=== PATIENT | female | born 1930 | race Caucasian/White ===

== ENCOUNTER 2018-03-25 16:28 | Inpatient (IN) | payer MEDICARE, OTHER ==
--- NOTE | 2018-03-25 16:51 | ER Document Report ---
ED Medical Screen (RME) - General Chief Complaint: Altered Mental Status Stated Complaint: ALTER MENTAL STATUS Time Seen by Provider: 03/25/18 16:43 Notes: 87 years old female who is taking total of 50 mg of oxycodone a day due to chronic pain, last few days having auditory and visual hallucinations. Therefore the daughter brought her to the ED. Prior to that for the last 5 days the daughter has withdrawn all her medication except pain medicine. She was taking medication for hypothyroid and high blood pressure. Denied any focal weakness numbness tingling sensation. TRAVEL OUTSIDE OF THE [place] IN LAST 30 DAYS: No - Related Data Allergies/Adverse Reactions: Cephalosporins Allergy (Severe, Verified 11/06/14 06:11) Anaphylaxis lisinopril [From Zestril] Allergy (Severe, Verified 11/06/14 06:11) Hives bacitracin [From Neosporin] Allergy (Intermediate, Verified 11/06/14 06:11) Blisters bacitracin zinc [From Neosporin] Allergy (Intermediate, Verified 11/06/14 06:11) Blisters gramicidin D [From Neosporin] Allergy (Intermediate, Verified 11/06/14 06:11) Blisters latex [Latex] Allergy (Intermediate, Verified 11/06/14 06:11) LATEX neomycin sulfate [From Neosporin] Allergy (Intermediate, Verified 11/06/14 06:11 ) Blisters polymyxin B [From Neosporin] Allergy (Intermediate, Verified 11/06/14 06:11) Blisters polymyxin B sulfate [From Neosporin] Allergy (Intermediate, Verified 11/06/14 06 :11) Blisters sulindac [Sulindac] Allergy (Unknown, Verified 11/06/14 06:11) flector patch Allergy (Intermediate, Uncoded 11/06/14 06:11) Blisters soaps Allergy (Intermediate, Uncoded 11/06/14 06:11) tape Allergy (Intermediate, Uncoded 11/06/14 06:11) Blisters Past Medical History - Past Medical History Cardiac Medical History: Reports: Hx Atrial Fibrillation, Hx Hypercholesterolemia, Hx Hypertension Denies: Hx Coronary Artery Disease, Hx Heart Attack Pulmonary Medical History: Reports: Hx Bronchitis, Hx Pneumonia Denies: Hx Asthma, Hx COPD Neurological Medical History: Denies: Hx Cerebrovascular Accident, Hx Seizures Endocrine Medical History: Denies: Hx Hypothyroidism Malignancy Medical History: Reports: Hx Leukemia - CLL GI Medical History: Reports: Hx Gastroesophageal Reflux Disease, Hx Irritable Bowel Musculoskeltal Medical History: Reports Hx Arthritis Past Surgical History: Reports: Hx Cholecystectomy, Hx Gynecologic Surgery - Uterine cyst removal, Hx Orthopedic Surgery - Bilateral knee replacement, and right shoulder surgery.. Denies: Hx Pacemaker - Immunizations Hx Diphtheria, Pertussis, Tetanus Vaccination: Yes Physical Exam - Vital signs Vitals: Temp Pulse Resp BP Pulse Ox 98.8 F 71 13 170/96 H 96 03/25/18 16:38 03/25/18 16:38 03/25/18 16:38 03/25/18 16:38 03/25/18 16:38 Course - Vital Signs Vital signs: Temp Pulse Resp BP Pulse Ox 98.8 F 71 13 170/96 H 96 03/25/18 16:38 03/25/18 16:38 03/25/18 16:38 03/25/18 16:38 03/25/18 16:38 Doctor's Discharge - Discharge Referrals: TERESA GAVIRIA NP [Primary Care Provider] - Follow up as needed
[2018-03-25 17:26] LABS: ABSOLUTE EOSINOPHILS # (AUTO) 0.1 10^3/uL (0.0-0.6); ABSOLUTE LYMPHOCYTES (AUTO) 1.3 10^3/uL (0.5-4.7); ABSOLUTE MONOCYTES (AUTO) 0.7 10^3/uL (0.1-1.4); BASOPHILS % (AUTO) 0.5 % (0-2); HEMATOCRIT 41.3 % (36.0-47.0); HEMOGLOBIN 13.5 g/dL (12.0-15.5); LYMPHOCYTES % (AUTO) 17.9 % (13-45); MEAN CORPUSCULAR HEMOGLOBIN 29.8 pg (27.0-33.4); MEAN CORPUSCULAR HGB CONC 32.7 g/dL (32.0-36.0); MEAN CORPUSCULAR VOLUME 91 fl (80-97); MONOCYTES % (AUTO) 9.2 % (3-13); PLATELET COUNT 221 10^3/uL (150-450); RED BLOOD COUNT 4.53 10^6/uL (3.72-5.28); RED CELL DISTRIBUTION WIDTH 16.9 % (11.5-14.0); SEGMENTED NEUTROPHILS % (AUTO) 70.4 % (42-78); TOTAL CELLS COUNTED % (AUTO) 100 %; WHITE BLOOD COUNT 7.1 10^3/uL (4.0-10.5)
--- NOTE | 2018-03-25 17:41 | RADIOLOGY REPORT (SQ) ---
EXAM DESCRIPTION: CT HEAD WITHOUT COMPLETED DATE/TIME: 03/25/2018 5:27 pm REASON FOR STUDY: Hallucination COMPARISON: None. TECHNIQUE: Axial images acquired through the brain without intravenous contrast. Images reviewed wi th bone, brain and subdural windows. Additional sagittal and coronal reconstructions were generated. Images stored on PACS. All CT scanners at this facility use dose modulation, iterative reconstruction, and/or weight based d osing when appropriate to reduce radiation dose to as low as reasonably achievable (ALARA). [facility]: Dose Right [facility]: CareDose [facility]: Dose Right [facility]: Teradose 4D [facility]: FaceFirst (Airborne [employer]ometric[employer]) RADIATION DOSE: CT Rad equipment meets quality standard of care and radiation dose reduction techniq ues were employed. CTDIvol: 53.2 mGy. DLP: 991 mGy-cm. mGy. LIMITATIONS: None. FINDINGS: VENTRICLES: Prominent. CEREBRUM: No masses. No hemorrhage. No midline shift. Right parietal lacunar infarct. Additional areas of low density in the white matter most likely due to chronic micro-vascular ischemic change. No evidence for acute infarction. CEREBELLUM: No masses. No hemorrhage. No alteration of density. No evidence for acute infarction. EXTRAAXIAL SPACES: Mild age-related involutional change. No fluid collections. No masses. ORBITS AND GLOBE: No intra- or extraconal masses. Normal contour of globe without masses. CALVARIUM: No fracture. PARANASAL SINUSES: No fluid or mucosal thickening. SOFT TISSUES: No mass or hematoma. OTHER: Atherosclerotic plaque is seen within the cavernous segments of the internal carotid arteries. IMPRESSION: RIGHT PARIETAL LACUNAR INFARCT. BACKGROUND OF MILD CHRONIC CHANGES OF ATROPHY AND MICRO VASCULAR ISCHEMIA. NO ACUTE PROCESS. EVIDENCE OF ACUTE STROKE: NO. TECHNICAL DOCUMENTATION: JOB ID: [id number] Quality ID # [id number]: Final reports with documentation of one or more dose reduction techniques (e.g., Au tomated exposure control, adjustment of the mA and/or kV according to patient size, use of iterative reconstruction technique) 2010 [employer] All Rights Reserved Reading location - IP/workstation name: [email or web address]
[2018-03-25 17:43] LABS: ALANINE AMINOTRANSFERASE 38 U/L (9-52); ALBUMIN 4.3 g/dL (3.5-5.0); ALKALINE PHOSPHATASE 67 U/L (38-126); ANION GAP 12 (5-19); ASPARTATE AMINO TRANSFERASE 37 U/L (14-36); BILIRUBIN,DIRECT 0.3 mg/dL (0.0-0.4); BILIRUBIN,TOTAL 0.7 mg/dL (0.2-1.3); BLOOD UREA NITROGEN 10 mg/dL (7-20); CALCIUM 9.4 mg/dL (8.4-10.2); CARBON DIOXIDE 29 mmol/L (22-30); CHLORIDE 100 mmol/L (98-107); GLUCOSE 101 mg/dL (75-110); POTASSIUM 4.2 mmol/L (3.6-5.0); SODIUM 141.3 mmol/L (137-145); TOTAL PROTEIN 6.8 g/dL (6.3-8.2)
[2018-03-25 17:59] LABS: FREE T3 3.93 pg/mL (2.77-5.27); FREE T4 (FREE THYROXINE) 1.22 ng/dL (0.78-2.19)
[2018-03-25 18:07] LABS: AMORPHOUS SEDIMENT,URINE TRACE /HPF; APPEARANCE,URINE CLOUDY; BILIRUBIN,URINE NEGATIVE (NEGATIVE); COLOR,URINE YELLOW; GLUCOSE, URINE NEGATIVE (NEGATIVE); KETONES,URINE NEGATIVE (NEGATIVE); LEUKOCYTE ESTERASE,URINE LARGE (NEGATIVE); NITRITE,URINE NEGATIVE (NEGATIVE); PROTEIN,URINE 30 mg/dL (NEGATIVE); UROBILINOGEN,URINE NEGATIVE mg/dL (<2.0)
[2018-03-25 18:13] LABS: THYROID STIMULATING HORMONE 5.87 uIU/mL (0.47-4.68)
--- NOTE | 2018-03-25 18:18 | ER Document Report ---
ED General - General Mode of Arrival: Ambulatory Information source: Patient, Relative, [facility] Records <JOSE LUIS SOTO - Last Filed: 03/25/18 19:07> - General TRAVEL OUTSIDE OF THE [place] IN LAST 30 DAYS: No <ERIC ROSE - Last Filed: 03/25/18 20:55> - General Chief Complaint: Altered Mental Status Stated Complaint: ALTER MENTAL STATUS Time Seen by Provider: 03/25/18 16:43 Notes: This 87-year-old female patient who normally lives alone is brought to emergency room by her daughters for 48 hour history of auditory visual hallucinations. She is seeing things on the jauregui. She is seeing people in her house that are not present. She called neighbors at 4:00 in the morning saying there are people in her house going through her stuff. At this time she is completely alert and reasonably oriented. She does think she has a parasite that she can feel crawling around her anal region. This is been going on for several months. She also has had diarrhea for 2-3 months when she normally has constipation. Her primary care provider gave her a cup for stool specimen but she never provided it. Her family reports that she has a long history of urinary tract infections and has never been like this before. She does have a history of atrial fibrillation /atrial flutter, has pacemaker and had ablation done. She is no longer on anticoagulants. She also has a past history of CLL. She takes Percocet 10 mg tablets 5 times daily on a chronic basis for her spinal stenosis and arthritis pain. She also complains of pain to the top of her head and pain in her left ear. She states her left ear itches. (JOSE LUIS SOTO) - Related Data Allergies/Adverse Reactions: Cephalosporins Allergy (Severe, Verified 11/06/14 06:11) Anaphylaxis lisinopril [From Zestril] Allergy (Severe, Verified 11/06/14 06:11) Hives bacitracin [From Neosporin] Allergy (Intermediate, Verified 11/06/14 06:11) Blisters bacitracin zinc [From Neosporin] Allergy (Intermediate, Verified 11/06/14 06:11) Blisters gramicidin D [From Neosporin] Allergy (Intermediate, Verified 11/06/14 06:11) Blisters latex [Latex] Allergy (Intermediate, Verified 11/06/14 06:11) LATEX neomycin sulfate [From Neosporin] Allergy (Intermediate, Verified 11/06/14 06:11 ) Blisters polymyxin B [From Neosporin] Allergy (Intermediate, Verified 11/06/14 06:11) Blisters polymyxin B sulfate [From Neosporin] Allergy (Intermediate, Verified 11/06/14 06 :11) Blisters sulindac [Sulindac] Allergy (Unknown, Verified 11/06/14 06:11) flector patch Allergy (Intermediate, Uncoded 11/06/14 06:11) Blisters soaps Allergy (Intermediate, Uncoded 11/06/14 06:11) tape Allergy (Intermediate, Uncoded 11/06/14 06:11) Blisters Past Medical History - General Information source: Patient - Social History Smoking Status: Never Smoker Cigarette use (# per day): No Chew tobacco use (# tins/day): No Frequency of alcohol use: None Drug Abuse: None Lives with: Alone Family History: Reviewed & Not Pertinent Patient has suicidal ideation: No Patient has homicidal ideation: No - Past Medical History Cardiac Medical History: Reports: Hx Atrial Fibrillation, Hx Hypercholesterolemia, Hx Hypertension Pulmonary Medical History: Reports: Hx Bronchitis, Hx Pneumonia Malignancy Medical History: Reports: Hx Leukemia - CLL GI Medical History: Reports: Hx Gastroesophageal Reflux Disease, Hx Irritable Bowel Musculoskeletal Medical History: Reports Hx Arthritis Past Surgical History: Reports: Hx Cholecystectomy, Hx Gynecologic Surgery - Uterine cyst removal, Hx Orthopedic Surgery - Bilateral knee replacement, and right shoulder surgery. - Immunizations Hx Diphtheria, Pertussis, Tetanus Vaccination: Yes Hx Pneumococcal Vaccination: 08/30/99 <ERIC ROSE - Last Filed: 03/25/18 20:55> Review of Systems - Review of Systems Constitutional: No symptoms reported EENT: No symptoms reported Cardiovascular: No symptoms reported Respiratory: No symptoms reported Gastrointestinal: No symptoms reported Genitourinary: No symptoms reported Female Genitourinary: No symptoms reported Musculoskeletal: No symptoms reported Skin: No symptoms reported Hematologic/Lymphatic: No symptoms reported Neurological/Psychological: See HPI, Confusion - "more confused than normal", Hallucinations -: Yes All other systems reviewed and negative <ERIC ROSE - Last Filed: 03/25/18 20:55> Physical Exam <JOSE LUIS SOTO - Last Filed: 03/25/18 19:07> <ERIC ROSE - Last Filed: 03/25/18 20:55> - Vital signs Vitals: Temp Pulse Resp BP Pulse Ox 98.8 F 71 13 170/96 H 96 03/25/18 16:38 03/25/18 16:38 03/25/18 16:38 03/25/18 16:38 03/25/18 16:38 - Notes Notes: Physical Exam: General: Alert, appears age appropriate, morbidly obese. HEENT: Normocephalic. Atraumatic. PERRL. Extraocular movements intact. Oropharynx clear. Dry cerumen in left external canal. Neck: Supple. Non-tender. Respiratory: No respiratory distress. Clear and equal breath sounds bilaterally. Cardiovascular: Regular rate and rhythm. Abdominal: Morbidly obese. Non-tender. No distension. Normal Bowel Sounds. Back: Non-tender. No deformity or step off. Extremities: Moves all four extremities. Upper extremities: Normal inspection. Normal ROM. Lower extremities: Normal inspection. Chronic edema bilaterally. Normal ROM. Neurological: Normal cognition. AAOx4. Normal speech. Psychological: Normal affect. Normal Mood. Skin: Chronic dry, thickening of the skin of the lower extremities bilaterally. (ERIC ROSE) Course - Laboratory Result Diagrams: 03/25/18 17:00 03/25/18 17:00 - Diagnostic Test Radiology reviewed: Reports reviewed - CT scan shows an old right parietal lacunar infarct. Chronic microvascular ischemic changes. Nothing acute. - EKG Interpretation by Ok EKG shows normal: [place], Intervals, QRS Complexes, ST-T Waves. abnormal: Sinus rhythm - Ventricular paced rhythm Rate: Normal - 70 Rhythm: A.Fib, A.Flutter, Other - Ventricular paced rhythm - Consults Dr. Goel Time consulted: 18:30 Consulted provider: will come to ER <JOSE LUIS SOTO - Last Filed: 03/25/18 19:07> - Laboratory Result Diagrams: 03/25/18 17:00 03/25/18 17:00 <ERIC ROSE - Last Filed: 03/25/18 20:55> - Vital Signs Vital signs: Temp Pulse Resp BP Pulse Ox 98.8 F 71 17 123/87 H 96 03/25/18 16:38 03/25/18 16:38 03/25/18 20:01 03/25/18 20:01 03/25/18 20:01 - Laboratory Laboratory results interpreted by me: 03/25/18 03/25/18 03/25/18 17:00 17:00 17:00 RDW 16.9 H AST 37 H TSH 5.87 H Urine Protein Ur Leukocyte Esterase 03/25/18 17:05 RDW AST TSH Urine Protein 30 H Ur Leukocyte Esterase LARGE H Discharge - Discharge Admitting Provider: Hospitalist Unit Admitted: Medical Floor <JOSE LUIS SOTO - Last Filed: 03/25/18 19:07> <ERIC ROSE - Last Filed: 03/25/18 20:55> - Discharge Clinical Impression: Hallucinations Urinary tract infection Qualifiers: Urinary tract infection type: site unspecified Hematuria presence: without hematuria Qualified Code(s): N39.0 - Urinary tract infection, site not specified High blood pressure Qualifiers: Hypertension type: essential hypertension Qualified Code(s): I10 - Essential ( primary) hypertension Condition: Stable Disposition: ADMITTED OBSERVATION Scribe Attestation: 03/25/18 19:07 I personally performed the services described in the documentation, reviewed and edited the documentation which was dictated to the scribe in my presence, and it accurately records my words and actions. (JOSE LUIS SOTO) Scribe Documentation - Scribe Written by [employer]:: Jj Rosado, 03/25/[id number] acting as scribe for :: Liudmila <ERIC ROSE - Last Filed: 03/25/18 20:55>
[2018-03-25 18:40] LABS: CREATINE KINASE 59 U/L (30-135)
[2018-03-25 18:42] LABS: INTERNATIONAL RATION (INR) 0.94; PROTHROMBIN TIME 13.1 SEC (11.4-15.4)
[2018-03-25] MEDS ORDERED: ONDANSETRON 4 MG TAB.RAPDIS PO PRN (18:57)
[2018-03-25] MEDS ORDERED: ACETAMINOPHEN 325 MG TABLET PO PRN (18:57)
--- NOTE | 2018-03-25 18:57 | PDOC H&P ---
History of Present Illness Admission Date/PCP: JALEN JAMIL NP History of Present Illness: KHUSHI BARTLETT is a 87 year old female past medical history of hypertension, hypothyroidism, hyperlipidemia, chronic lymphocytic leukemia in remission and paroxysmal atrial fibrillation/atrial flutter brought complaint altered mental status evidenced by auditory and visual hallucination. Patient is not able to give coherent history, she just repeatedly tells me she is about to lose her mind. Brief history is obtained from ER attending note per ER attending note the patient normally lives alone is brought to emergency room by her daughters for 48 hours history of auditory and visual hallucinations she is seeing things on the jauregui. She is seeing people in her house that are not present. She called her neighbor's at 4 in the morning saying there are people in her house going through her staff. She has also history of watery diarrhea that has been going on for the last 2-3 months. Reportedly patient has recurrent long-standing history of urinary tract infection. Her initial workup is unremarkable except her urine analysis which is positive for large leukocyte esterase and was WBC count of greater than 182. The detailed history and review of systems unobtainable. Past Medical History Cardiac Medical History: Reports: Atrial Fibrillation, Hyperlipidema, Hypertension Denies: Coronary Artery Disease, Myocardial Infarction Pulmonary Medical History: Reports: Bronchitis, Pneumonia Denies: Asthma, Chronic Obstructive Pulmonary Disease (COPD) Neurological Medical History: Denies: Seizures Endocrine Medical History: Denies: Hypothyroidism Malignancy Medical History: Reports: Leukemia - CLL GI Medical History: Reports: Gastroesophageal Reflux Disease Musculoskeltal Medical History: Reports: Arthritis Hematology: Reports: Anemia Past Surgical History Past Surgical History: Reports: Cholecystectomy, Orthopedic Surgery - Bilateral knee replacement, and right shoulder surgery. Denies: Pacemaker Social History Smoking Status: Never Smoker Frequency of Alcohol Use: None Hx Recreational Drug Use: No Drugs: None Hx Prescription Drug Abuse: No - Advance Directive Resuscitation Status: Full Code Family History Family History: Reviewed & Not Pertinent Parental Family History Reviewed: Yes Children Family History Reviewed: Yes Sibling(s) Family History Reviewed.: Yes Medication/Allergy Home Medications: Simvastatin [Zocor 20 mg Tablet] 20 mg PO QHS 09/07/12 Alprazolam [Xanax 0.5 mg Tablet] 0.5 mg BID 11/06/14 Candesartan Cilexetil [Atacand] 8 mg PO DAILY 11/06/14 Ergocalciferol (Vitamin D2) [Vitamin D2] 1.25 mg 11/06/14 Furosemide [Lasix 20 mg Tablet] 20 mg PO BID 11/06/14 Levothyroxine Sodium [Synthroid] 100 mcg PO DAILY 11/06/14 Potassium Chloride [Klor-Con] 20 meq PO DAILY 11/06/14 Sennosides/Docusate Sodium [Docusate Sodium-Senna Tablet] 1 each PO 11/06/14 Sotalol HCl [Betapace] 120 mg PO BID 11/06/14 Warfarin Sodium [Coumadin 5 mg Tablet] 5 mg PO DAILY 11/06/14 Allergies/Adverse Reactions: Cephalosporins Allergy (Severe, Verified 11/06/14 06:11) Anaphylaxis lisinopril [From Zestril] Allergy (Severe, Verified 11/06/14 06:11) Hives bacitracin [From Neosporin] Allergy (Intermediate, Verified 11/06/14 06:11) Blisters bacitracin zinc [From Neosporin] Allergy (Intermediate, Verified 11/06/14 06:11) Blisters gramicidin D [From Neosporin] Allergy (Intermediate, Verified 11/06/14 06:11) Blisters latex [Latex] Allergy (Intermediate, Verified 11/06/14 06:11) LATEX neomycin sulfate [From Neosporin] Allergy (Intermediate, Verified 11/06/14 06:11 ) Blisters polymyxin B [From Neosporin] Allergy (Intermediate, Verified 11/06/14 06:11) Blisters polymyxin B sulfate [From Neosporin] Allergy (Intermediate, Verified 11/06/14 06 :11) Blisters sulindac [Sulindac] Allergy (Unknown, Verified 11/06/14 06:11) flector patch Allergy (Intermediate, Uncoded 11/06/14 06:11) Blisters soaps Allergy (Intermediate, Uncoded 11/06/14 06:11) tape Allergy (Intermediate, Uncoded 11/06/14 06:11) Blisters Review of Systems ROS unobtainable: Due to mental status Physical Exam Vital Signs: Temp Pulse Resp BP Pulse Ox 98.8 F 71 13 170/96 H 96 03/25/18 16:38 03/25/18 16:38 03/25/18 16:38 03/25/18 16:38 03/25/18 16:38 General appearance: PRESENT: no acute distress Neck exam: ABSENT: carotid bruit, JVD, lymphadenopathy, thyromegaly Respiratory exam: PRESENT: clear to auscultation carmela. ABSENT: rales, rhonchi, wheezes Cardiovascular exam: PRESENT: RRR. ABSENT: diastolic murmur, rubs, systolic murmur Extremities exam: PRESENT: +2 edema - Dry scaly skin with pitting edema +2 Neurological exam: PRESENT: alert, altered Results Laboratory Results: 03/25/18 17:00 03/25/18 17:00 03/25/18 03/25/18 03/25/18 17:00 17:00 17:00 WBC 7.1 RBC 4.53 Hgb 13.5 Hct 41.3 MCV 91 MCH 29.8 MCHC 32.7 RDW 16.9 H Plt Count 221 Seg Neutrophils % 70.4 Lymphocytes % 17.9 Monocytes % 9.2 Eosinophils % 2.0 Basophils % 0.5 Absolute Neutrophils 5.0 Absolute Lymphocytes 1.3 Absolute Monocytes 0.7 Absolute Eosinophils 0.1 Absolute Basophils 0.0 Sodium 141.3 Potassium 4.2 Chloride 100 Carbon Dioxide 29 Anion Gap 12 BUN 10 Creatinine 0.61 Est GFR ( Amer) > 60 Est GFR (Non-Af Amer) > 60 Glucose 101 Calcium 9.4 Total Bilirubin 0.7 AST 37 H ALT 38 Alkaline Phosphatase 67 Total Protein 6.8 Albumin 4.3 TSH 5.87 H Free T4 1.22 Free T3 pg/mL 3.93 Urine Color Urine Appearance Urine pH Ur Specific [place] Urine Protein Urine Glucose (UA) Urine Ketones Urine Blood Urine Nitrite Ur Leukocyte Esterase Urine WBC (Auto) Urine RBC (Auto) 03/25/18 17:05 WBC RBC Hgb Hct MCV MCH MCHC RDW Plt Count Seg Neutrophils % Lymphocytes % Monocytes % Eosinophils % Basophils % Absolute Neutrophils Absolute Lymphocytes Absolute Monocytes Absolute Eosinophils Absolute Basophils Sodium Potassium Chloride Carbon Dioxide Anion Gap BUN Creatinine Est GFR ( Amer) Est GFR (Non-Af Amer) Glucose Calcium Total Bilirubin AST ALT Alkaline Phosphatase Total Protein Albumin TSH Free T4 Free T3 pg/mL Urine Color YELLOW Urine Appearance CLOUDY Urine pH 7.0 Ur Specific [place] 1.010 Urine Protein 30 H Urine Glucose (UA) NEGATIVE Urine Ketones NEGATIVE Urine Blood NEGATIVE Urine Nitrite NEGATIVE Ur Leukocyte Esterase LARGE H Urine WBC (Auto) >182 Urine RBC (Auto) 3 03/25/18 17:05 Creatine Kinase 59 Impressions: Head CT 03/25/18 16:44 IMPRESSION: RIGHT PARIETAL LACUNAR INFARCT. BACKGROUND OF MILD CHRONIC CHANGES OF ATROPHY AND MICROVASCULAR ISCHEMIA. NO ACUTE PROCESS. EVIDENCE OF ACUTE STROKE: NO. Assessment & Plan - Diagnosis (1) Altered mental status Is this a current diagnosis for this admission?: Yes Plan: Possibly due to #2 (2) Complicated UTI (urinary tract infection) Is this a current diagnosis for this admission?: Yes Plan: Urine culture. IV Levaquin (3) Atrial fibrillation and flutter Is this a current diagnosis for this admission?: Yes Plan: Currently she is in sinus and rate is controlled (4) Hypothyroidism Qualifiers: Hypothyroidism type: acquired Qualified Code(s): E03.9 - Hypothyroidism, unspecified Is this a current diagnosis for this admission?: Yes Plan: I will continue her Synthroid in the meantime we will check her TSH is a status of her condition (5) Chronic lymphocytic leukemia Is this a current diagnosis for this admission?: Yes Plan: In remission (6) Hypertension Qualifiers: Hypertension type: essential hypertension Qualified Code(s): I10 - Essential (primary) hypertension Is this a current diagnosis for this admission?: Yes Plan: Continue her home medication (7) Hyperlipidemia Qualifiers: Hyperlipidemia type: unspecified Qualified Code(s): E78.5 - Hyperlipidemia , unspecified Is this a current diagnosis for this admission?: Yes Plan: Continue home statin
[2018-03-25] MEDS ORDERED: LEVOFLOXACIN 750 MG/D5W RTU 750 MG/150 ML RTUPB IV SCH (19:00)
[2018-03-25] MEDS: NORMAL SALINE 1000 ML 1,000 ML IV PRN (19:41)
[2018-03-25] MEDS ORDERED: LEVOFLOXACIN 750 MG/D5W RTU 750 MG/150 ML RTUPB IV ONE (20:00)
[2018-03-25] MEDS ORDERED: (PENDING PHARMACY ID) (Oxycodone Hcl/Acetaminophen [Oxycodone-Acetaminophen 10-325] 1 TAB) PO SCH (22:00)
[2018-03-25] MEDS ORDERED: OXYCODONE-ACETAMINOPHEN 5-325 MG TABLET PO ONE ×2 (22:15→23:15)
[2018-03-25] MEDS ORDERED: OXYCODONE HCL IR 5 MG TABLET PO ONE ×2 (22:15→23:15)
--- NOTE | 2018-03-25 22:32 | EKG REPORT ---
SEVERITY:- ABNORMAL ECG - AFIB/FLUTTER AND VENTRICULAR-PACED RHYTHM : Confirmed by: Consuelo Ac MD 25-Mar-2018 22:31:55
[2018-03-26] MEDS: OXYCODONE HCL IR 5 MG TABLET PO SCH ×4 (03:05→13:41)
[2018-03-26] MEDS: OXYCODONE-ACETAMINOPHEN 5-325 MG TABLET PO SCH ×6 (03:05→21:16)
[2018-03-26] MEDS: LANSOPRAZOLE 30 MG TAB.RAP.DR PO SCH (06:30)
[2018-03-26 09:15] LABS: HEMATOCRIT 38.2 % (36.0-47.0); HEMOGLOBIN 12.4 g/dL (12.0-15.5); MEAN CORPUSCULAR HEMOGLOBIN 29.8 pg (27.0-33.4); MEAN CORPUSCULAR HGB CONC 32.6 g/dL (32.0-36.0); MEAN CORPUSCULAR VOLUME 92 fl (80-97); PLATELET COUNT 182 10^3/uL (150-450); RED BLOOD COUNT 4.17 10^6/uL (3.72-5.28); RED CELL DISTRIBUTION WIDTH 17.1 % (11.5-14.0); WHITE BLOOD COUNT 5.7 10^3/uL (4.0-10.5)
[2018-03-26 09:43] LABS: ANION GAP 11 (5-19); BLOOD UREA NITROGEN 8 mg/dL (7-20); CALCIUM 8.7 mg/dL (8.4-10.2); CARBON DIOXIDE 25 mmol/L (22-30); CHLORIDE 105 mmol/L (98-107); GLUCOSE 104 mg/dL (75-110); SODIUM 141.4 mmol/L (137-145)
[2018-03-26] MEDS: NORMAL SALINE 1000 ML 1,000 ML IV PRN (09:48)
[2018-03-26] MEDS: ENOXAPARIN SODIUM INJ 40 MG/0.4 ML DISP.SYRIN SUBCUT SCH (09:49)
[2018-03-26] MEDS ORDERED: LEVOFLOXACIN 750 MG/D5W RTU 750 MG/150 ML RTUPB IV SCH (10:00)
--- NOTE | 2018-03-26 14:36 | PDOC PROGRESS REPORT ---
Subjective Progress Note for:: 03/26/18 Subjective:: This is 87 years old female patient who lives by herself, brought yesterday with chief complaint of auditory and visual hallucination. Patient also found to have complicated UTI for which she has been on Levaquin. Still patient has some visual hallucination. I will consult psych for capacity. I will started also with low-dose of Seroquel 25 mg p.o. nightly. Reason For Visit: ALTERED MENTAL STATUS, COMPLICATED UTI Physical Exam Vital Signs: Temp Pulse Resp BP Pulse Ox 98.5 F 70 18 146/58 H 97 03/26/18 12:41 03/26/18 12:41 03/26/18 12:41 03/26/18 12:41 03/26/18 12:41 Intake & Output 03/25/18 03/26/18 03/27/18 06:59 06:59 06:59 Intake Total 450 1000 Output Total 950 Balance -500 1000 Weight 99.6 kg General appearance: PRESENT: no acute distress Head exam: PRESENT: atraumatic Mouth exam: PRESENT: moist Neck exam: ABSENT: carotid bruit, JVD, lymphadenopathy, thyromegaly Respiratory exam: PRESENT: clear to auscultation carmela. ABSENT: rales, rhonchi, wheezes Cardiovascular exam: PRESENT: RRR. ABSENT: diastolic murmur, rubs, systolic murmur GI/Abdominal exam: PRESENT: normal bowel sounds, soft. ABSENT: distended, guarding, mass, organolmegaly, rebound, tenderness Neurological exam: PRESENT: alert Results Laboratory Results: 03/26/18 08:55 03/26/18 08:55 03/26/18 03/26/18 03/26/18 08:55 08:55 08:55 WBC 5.7 RBC 4.17 Hgb 12.4 Hct 38.2 MCV 92 MCH 29.8 MCHC 32.6 RDW 17.1 H Plt Count 182 Sodium 141.4 Potassium 4.0 Chloride 105 Carbon Dioxide 25 Anion Gap 11 BUN 8 Creatinine 0.54 Est GFR ( Amer) > 60 Est GFR (Non-Af Amer) > 60 Glucose 104 Calcium 8.7 TSH 4.71 H Impressions: Head CT 03/25/18 16:44 IMPRESSION: RIGHT PARIETAL LACUNAR INFARCT. BACKGROUND OF MILD CHRONIC CHANGES OF ATROPHY AND MICROVASCULAR ISCHEMIA. NO ACUTE PROCESS. EVIDENCE OF ACUTE STROKE: NO. Assessment & Plan - Diagnosis (1) Altered mental status Is this a current diagnosis for this admission?: Yes Plan: Attributes his altered mental status to underlying urinary tract infection. It might resolve with antibiotics. Patient might have also psychiatric disorder. I will start her low-dose antipsychotic Seroquel 25 mg p.o. nightly. (2) Complicated UTI (urinary tract infection) Is this a current diagnosis for this admission?: Yes Plan: Continue current regimen (3) Atrial fibrillation and flutter Is this a current diagnosis for this admission?: Yes Plan: Currently she is in sinus and rate is controlled (4) Hypothyroidism Qualifiers: Hypothyroidism type: acquired Qualified Code(s): E03.9 - Hypothyroidism, unspecified Is this a current diagnosis for this admission?: Yes Plan: I will continue her Synthroid in the meantime we will check her TSH is a status of her condition (5) Chronic lymphocytic leukemia Is this a current diagnosis for this admission?: Yes Plan: In remission (6) Hypertension Qualifiers: Hypertension type: essential hypertension Qualified Code(s): I10 - Essential (primary) hypertension Is this a current diagnosis for this admission?: Yes Plan: Continue her home medication (7) Hyperlipidemia Qualifiers: Hyperlipidemia type: unspecified Qualified Code(s): E78.5 - Hyperlipidemia , unspecified Is this a current diagnosis for this admission?: Yes Plan: Continue home statin
[2018-03-26] MEDS: QUETIAPINE FUMARATE 25 MG TABLET PO SCH (21:16)
[2018-03-27] MEDS: OXYCODONE-ACETAMINOPHEN 5-325 MG TABLET PO SCH ×6 (01:02→21:12)
[2018-03-27] MEDS: LANSOPRAZOLE 30 MG TAB.RAP.DR PO SCH (06:24)
[2018-03-27] MEDS: ENOXAPARIN SODIUM INJ 40 MG/0.4 ML DISP.SYRIN SUBCUT SCH (09:34)
--- NOTE | 2018-03-27 11:11 | PDOC PROGRESS REPORT ---
Subjective Progress Note for:: 03/27/18 Subjective:: I seen patient resting in bed. She reports restful night. She is more coherent and conversant. Her urine culture grew E. coli which is pansensitive. I have a long discussion with her son, regarding regarding the patient living by herself at this age with physical impairment and the need for placement or having somebody to live with her. He states that this will discussed with his sister and he will let me know her decision. Reason For Visit: ALTERED MENTAL STATUS, COMPLICATED UTI Physical Exam Vital Signs: Temp Pulse Resp BP Pulse Ox 98.7 F 69 21 H 156/90 H 96 03/27/18 00:08 03/27/18 00:08 03/27/18 00:08 03/27/18 00:08 03/27/18 00:08 Intake & Output 03/26/18 03/27/18 03/28/18 06:59 06:59 06:59 Intake Total 450 2125 Output Total 950 3050 Balance -500 -925 Weight 99.6 kg 99.8 kg General appearance: PRESENT: no acute distress Eye exam: PRESENT: conjunctiva pink Mouth exam: PRESENT: moist Neck exam: ABSENT: carotid bruit, JVD, lymphadenopathy, thyromegaly Respiratory exam: PRESENT: clear to auscultation carmela. ABSENT: rales, rhonchi, wheezes Cardiovascular exam: PRESENT: RRR. ABSENT: diastolic murmur, rubs, systolic murmur GI/Abdominal exam: PRESENT: normal bowel sounds, soft. ABSENT: distended, guarding, mass, organolmegaly, rebound, tenderness Neurological exam: PRESENT: alert, awake, oriented to time, oriented to situation Psychiatric exam: PRESENT: normal mood Results Laboratory Results: 03/26/18 08:55 03/26/18 08:55 Impressions: Head CT 03/25/18 16:44 IMPRESSION: RIGHT PARIETAL LACUNAR INFARCT. BACKGROUND OF MILD CHRONIC CHANGES OF ATROPHY AND MICROVASCULAR ISCHEMIA. NO ACUTE PROCESS. EVIDENCE OF ACUTE STROKE: NO. Assessment & Plan - Diagnosis (1) Altered mental status Is this a current diagnosis for this admission?: Yes Plan: Possibly due to UTI. Patient has been started on Seroquel 25 mg p.o. nightly. (2) Complicated UTI (urinary tract infection) Is this a current diagnosis for this admission?: Yes Plan: Urine culture grew E. coli which is pansensitive. I will continue her Levaquin. (3) Atrial fibrillation and flutter Is this a current diagnosis for this admission?: Yes Plan: Currently she is in sinus and rate is controlled (4) Hypothyroidism Qualifiers: Hypothyroidism type: acquired Qualified Code(s): E03.9 - Hypothyroidism, unspecified Is this a current diagnosis for this admission?: Yes Plan: I will continue her Synthroid in the meantime we will check her TSH is a status of her condition (5) Chronic lymphocytic leukemia Is this a current diagnosis for this admission?: Yes Plan: In remission (6) Hypertension Qualifiers: Hypertension type: essential hypertension Qualified Code(s): I10 - Essential (primary) hypertension Is this a current diagnosis for this admission?: Yes Plan: Continue her home medication (7) Hyperlipidemia Qualifiers: Hyperlipidemia type: unspecified Qualified Code(s): E78.5 - Hyperlipidemia , unspecified Is this a current diagnosis for this admission?: Yes Plan: Continue home statin
[2018-03-27] MEDS: QUETIAPINE FUMARATE 25 MG TABLET PO SCH (21:12)
[2018-03-28] MEDS: OXYCODONE-ACETAMINOPHEN 5-325 MG TABLET PO SCH ×6 (01:29→21:51)
[2018-03-28] MEDS: LANSOPRAZOLE 30 MG TAB.RAP.DR PO SCH (05:49)
[2018-03-28] MEDS ORDERED: METOPROLOL TARTRATE 100 MG TABLET PO ONE (09:30)
[2018-03-28] MEDS: LEVOFLOXACIN 750 MG/D5W RTU 750 MG/150 ML RTUPB IV SCH (10:52)
[2018-03-28] MEDS: ENOXAPARIN SODIUM INJ 40 MG/0.4 ML DISP.SYRIN SUBCUT SCH (10:52)
--- NOTE | 2018-03-28 13:17 | PDOC PROGRESS REPORT ---
Subjective Progress Note for:: 03/28/18 Subjective:: This is 87 years old female patient admitted with altered mental status with auditory and visual hallucination. At the time of admission she was also found to have UTI and she has been on Levaquin for the last 3 days. Initially we attributes her altered mental status to UTI but despite 3 days of antibiotics patient remained confused and delusional. Psych consulted. business continuity planner also consulted for possible fdc facility placement Reason For Visit: ALTERED MENTAL STATUS, COMPLICATED UTI Physical Exam Vital Signs: Temp Pulse Resp BP Pulse Ox 98.3 F 75 20 149/77 H 97 03/28/18 11:54 03/28/18 11:54 03/28/18 11:54 03/28/18 11:54 03/28/18 11:54 Intake & Output 03/27/18 03/28/18 03/29/18 06:59 06:59 06:59 Intake Total 2125 473 Output Total 3050 600 Balance -925 -127 Weight 99.8 kg 104 kg Results Laboratory Results: 03/26/18 08:55 03/26/18 08:55 Impressions: Head CT 03/25/18 16:44 IMPRESSION: RIGHT PARIETAL LACUNAR INFARCT. BACKGROUND OF MILD CHRONIC CHANGES OF ATROPHY AND MICROVASCULAR ISCHEMIA. NO ACUTE PROCESS. EVIDENCE OF ACUTE STROKE: NO. Assessment & Plan - Diagnosis (1) Altered mental status Is this a current diagnosis for this admission?: Yes Plan: Patient has been on Levaquin became for 3 days but remain confused and delusional. Patient may have underlying psychiatric disorder Patient has been started on Seroquel 25 mg p.o. nightly. (2) Complicated UTI (urinary tract infection) Is this a current diagnosis for this admission?: Yes Plan: Continue Levaquin (3) Atrial fibrillation and flutter Is this a current diagnosis for this admission?: Yes Plan: Currently she is in sinus and rate is controlled (4) Hypothyroidism Qualifiers: Hypothyroidism type: acquired Qualified Code(s): E03.9 - Hypothyroidism, unspecified Is this a current diagnosis for this admission?: Yes Plan: I will continue her Synthroid in the meantime we will check her TSH is a status of her condition (5) Chronic lymphocytic leukemia Is this a current diagnosis for this admission?: Yes Plan: In remission (6) Hypertension Qualifiers: Hypertension type: essential hypertension Qualified Code(s): I10 - Essential (primary) hypertension Is this a current diagnosis for this admission?: Yes Plan: Continue her home medication (7) Hyperlipidemia Qualifiers: Hyperlipidemia type: unspecified Qualified Code(s): E78.5 - Hyperlipidemia , unspecified Is this a current diagnosis for this admission?: Yes Plan: Continue home statin
--- NOTE | 2018-03-28 15:28 | RADIOLOGY REPORT (SQ) ---
EXAM DESCRIPTION: CHEST SINGLE VIEW COMPLETED DATE/TIME: 03/28/2018 3:03 pm REASON FOR STUDY: CLEARANCE FOR MRI COMPARISON: 11/06/2014. EXAM PARAMETERS: NUMBER OF VIEWS: One view. TECHNIQUE: Single frontal radiographic view of the chest acquired. RADIATION DOSE: NA LIMITATIONS: None. FINDINGS: LUNGS AND PLEURA: No opacities, masses or pneumothorax. No pleural effusion. MEDIASTINUM AND HILAR STRUCTURES: No masses. Contour normal. HEART AND VASCULAR STRUCTURES: Heart normal in size. Normal vasculature. BONES: No acute findings. HARDWARE: Pacemaker. Right shoulder prosthesis. OTHER: No other significant finding. IMPRESSION: NO ACUTE RADIOGRAPHIC FINDING IN THE CHEST. A PACEMAKER IS PRESENT. MRI IS CONTRAINDIC ATED AT THIS TIME. TECHNICAL DOCUMENTATION: JOB ID: [id number] [employer]- All Rights Reserved Reading location - IP/workstation name: [email or web address]
--- NOTE | 2018-03-28 16:57 | RADIOLOGY REPORT (SQ) ---
EXAM DESCRIPTION: CT HEAD WITHOUT COMPLETED DATE/TIME: 03/28/2018 4:48 pm REASON FOR STUDY: hallucinations, confusion, ams changes COMPARISON: 03/25/2018. TECHNIQUE: Axial images acquired through the brain without intravenous contrast. Images reviewed wi th bone, brain and subdural windows. Additional sagittal and coronal reconstructions were generated. Images stored on PACS. All CT scanners at this facility use dose modulation, iterative reconstruction, and/or weight based d osing when appropriate to reduce radiation dose to as low as reasonably achievable (ALARA). [facility]: Dose Right [facility]: CareDose [facility]: Dose Right [facility]: Teradose 4D [facility]: PayOrPass RADIATION DOSE: CT Rad equipment meets quality standard of care and radiation dose reduction techniq ues were employed. CTDIvol: 53.2 mGy. DLP: 991 mGy-cm. mGy. LIMITATIONS: None. FINDINGS: VENTRICLES: Prominent. CEREBRUM: No masses. No hemorrhage. No midline shift. Areas of low density in the white matter mos t likely due to chronic micro-vascular ischemic change. Old lacunar infarct in the right frontal lob e. No evidence for acute infarction. CEREBELLUM: No masses. No hemorrhage. No alteration of density. No evidence for acute infarction. EXTRAAXIAL SPACES: Mild age-related involutional change. No fluid collections. No masses. ORBITS AND GLOBE: No intra- or extraconal masses. Normal contour of globe without masses. CALVARIUM: No fracture. PARANASAL SINUSES: No fluid or mucosal thickening. SOFT TISSUES: No mass or hematoma. OTHER: No other significant finding. IMPRESSION: MILD CHRONIC CHANGES OF ATROPHY AND MICROVASCULAR ISCHEMIA. 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 NO ACUTE PROCESS. EVIDENCE OF ACUTE STROKE: NO. TECHNICAL DOCUMENTATION: JOB ID: [id number] Quality ID # [id number]: Final reports with documentation of one or more dose reduction techniques (e.g., Au tomated exposure control, adjustment of the mA and/or kV according to patient size, use of iterative reconstruction technique) 2010 [employer]- All Rights Reserved Reading location - IP/workstation name: [email or web address]
[2018-03-28] MEDS: METOPROLOL TARTRATE 50 MG TABLET PO SCH (21:50)
[2018-03-28] MEDS: QUETIAPINE FUMARATE 25 MG TABLET PO SCH (21:52)
[2018-03-28] MEDS ORDERED: HALOPERIDOL LACTATE INJ 5 MG/1 ML VIAL IM ONE (23:00)
[2018-03-29] MEDS: OXYCODONE-ACETAMINOPHEN 5-325 MG TABLET PO SCH ×6 (03:06→21:25)
[2018-03-29] MEDS: LANSOPRAZOLE 30 MG TAB.RAP.DR PO SCH (05:41)
[2018-03-29] MEDS: POLYETHYLENE GLYCOL 3350 POWDER 17 GM/1 PACKET PO SCH (10:13)
[2018-03-29] MEDS: ENOXAPARIN SODIUM INJ 40 MG/0.4 ML DISP.SYRIN SUBCUT SCH (10:13)
[2018-03-29] MEDS: METOPROLOL TARTRATE 50 MG TABLET PO SCH ×2 (10:16→21:25)
[2018-03-29] MEDS ORDERED: IPRATROPIUM/ALBUTEROL 0.5-2.5 MG/3 ML AMPUL NEB ONE (13:09)
--- NOTE | 2018-03-29 14:44 | PDOC PROGRESS REPORT ---
Subjective Progress Note for:: 03/29/18 Subjective:: Patient is resting in bed comfortably. Reportedly yesterday night patient has agitation and she pulled out her Walton catheter and IV line. But this morning patient's relatively caudal oriented to place and person. There is no report of fever, nausea, vomiting or diarrhea. Patient is able to eat and hold down. Patient has been evaluated by psych and the recommendation will follow. Reason For Visit: ALTERED MENTAL STATUS, UTI Physical Exam Vital Signs: Temp Pulse Resp BP Pulse Ox 98.2 F 70 20 150/82 H 95 03/29/18 11:54 03/29/18 13:12 03/29/18 13:12 03/29/18 11:54 03/29/18 13:12 Intake & Output 03/28/18 03/29/18 03/30/18 06:59 06:59 06:59 Intake Total 620 621 Output Total 900 Balance -280 621 Weight 105.3 kg General appearance: PRESENT: no acute distress Head exam: PRESENT: atraumatic Eye exam: PRESENT: conjunctiva pink Neck exam: ABSENT: carotid bruit, JVD, lymphadenopathy, thyromegaly Respiratory exam: PRESENT: clear to auscultation carmela. ABSENT: rales, rhonchi, wheezes Cardiovascular exam: PRESENT: RRR. ABSENT: diastolic murmur, rubs, systolic murmur Vascular exam: PRESENT: normal capillary refill Neurological exam: PRESENT: alert, awake Results Impressions: Chest X-Ray 03/28/18 00:00 IMPRESSION: NO ACUTE RADIOGRAPHIC FINDING IN THE CHEST. A PACEMAKER IS PRESENT. MRI IS CONTRAINDICATED AT THIS TIME. Head CT 03/28/18 00:00 IMPRESSION: MILD CHRONIC CHANGES OF ATROPHY AND MICROVASCULAR ISCHEMIA. 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 NO ACUTE PROCESS. EVIDENCE OF ACUTE STROKE: NO. Assessment & Plan - Diagnosis (1) Altered mental status Is this a current diagnosis for this admission?: Yes Plan: Probable metabolic encephalopathy. (2) Complicated UTI (urinary tract infection) Is this a current diagnosis for this admission?: Yes Plan: Her urine culture grew E. coli and Enterococcus faecalis both are sensitive to Levaquin. (3) Atrial fibrillation and flutter Is this a current diagnosis for this admission?: Yes Plan: Currently she is in sinus and rate is controlled (4) Hypothyroidism Qualifiers: Hypothyroidism type: acquired Qualified Code(s): E03.9 - Hypothyroidism, unspecified Is this a current diagnosis for this admission?: Yes Plan: I will continue her Synthroid in the meantime we will check her TSH is a status of her condition (5) Chronic lymphocytic leukemia Is this a current diagnosis for this admission?: Yes Plan: In remission (6) Hypertension Qualifiers: Hypertension type: essential hypertension Qualified Code(s): I10 - Essential (primary) hypertension Is this a current diagnosis for this admission?: Yes Plan: Continue her home medication (7) Hyperlipidemia Qualifiers: Hyperlipidemia type: unspecified Qualified Code(s): E78.5 - Hyperlipidemia , unspecified Is this a current diagnosis for this admission?: Yes Plan: Continue home statin
[2018-03-29] MEDS: GUAIFENESIN 600 MG TABLET.SA PO SCH (17:28)
[2018-03-29] MEDS: NYSTATIN OINTMENT 15 GM TUBE TP SCH (19:37)
[2018-03-29] MEDS: QUETIAPINE FUMARATE 25 MG TABLET PO SCH (21:25)
[2018-03-30] MEDS: OXYCODONE-ACETAMINOPHEN 5-325 MG TABLET PO SCH ×6 (06:19→22:08)
[2018-03-30] MEDS: LANSOPRAZOLE 30 MG TAB.RAP.DR PO SCH (06:25)
[2018-03-30] MEDS: GUAIFENESIN 600 MG TABLET.SA PO SCH ×2 (06:25→17:05)
[2018-03-30] MEDS: ENOXAPARIN SODIUM INJ 40 MG/0.4 ML DISP.SYRIN SUBCUT SCH (10:07)
[2018-03-30] MEDS: METOPROLOL TARTRATE 50 MG TABLET PO SCH ×2 (10:08→22:08)
[2018-03-30] MEDS: LEVOFLOXACIN 750 MG/D5W RTU 750 MG/150 ML RTUPB IV SCH (10:08)
[2018-03-30] MEDS: POLYETHYLENE GLYCOL 3350 POWDER 17 GM/1 PACKET PO SCH (10:24)
[2018-03-30] MEDS: NYSTATIN OINTMENT 15 GM TUBE TP SCH ×2 (10:24→17:11)
[2018-03-30] MEDS ORDERED: MAGNESIUM CITRATE 296 ML BOTTLE PO ONE ×2 (12:00→15:15)
[2018-03-30] MEDS: IPRATROPIUM/ALBUTEROL 0.5-2.5 MG/3 ML AMPUL NEB PRN (12:23)
--- NOTE | 2018-03-30 16:34 | PSYCHOLOGICAL NOTE ---
Psych Note - Psych Note Psych Note: Reason for Consult: psychosis This 87-year-old female patient who normally lives alone is brought to emergency room by her daughters for 48 hour history of auditory visual hallucinations. Medication recommendations per [facility]'s contracted psychiatrist Dr. Gwen HINDS are as follows 1. Please discontinue Seroquel 2. Please start Depakote 500 mg twice daily 3. 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 Patient suffered psychosis, probable onset from a UTI. Patient's family report onset was 2 months ago. Patient has a head CT which indicates mild chronic changes of atrophy and microvascular ischemia. Additionally the head CT indicates a old lacunar infarct in the right frontal lobe. These could affect how quickly the patient returns to her baseline. It is recommended the patient see a neurologist. While patient is clearly orientated during this evaluation to person place time and circumstance there was some difficulty with higher-level cognitive reasoning. Treating physicians are asked to consider avoiding prescribing benzodiazepines (i.e. Ativan, Xanax, Valium, Klonopin) antipsychotics (i.e. Haldol, Geodon, Zyprexa, Seroquel), some sleep aids (such as Ambien, Lunesta, Sonata), narcotic pain medications and high-dose steroids ( prednisone) as they have been known to cause and/or increased symptoms of aggression, psychosis, or paranoia in patients with neurodegenerative processes such as dementia, Alzheimer's disease, traumatic brain injury etc. Dr. Holly was consulted on the care and management of this patient.
--- NOTE | 2018-03-30 16:55 | PDOC PROGRESS REPORT ---
Subjective Progress Note for:: 03/30/18 Subjective:: Patient is seen and examined while she is resting in bed comfortably. Patient is today more awake alert and oriented. Patient reevaluated by psych and they recommended to discontinue Seroquel and to start her on Depakote 500 mg twice daily and BuSpar 5 mg every morning and 10 mg nightly. Reason For Visit: ALTERED MENTAL STATUS, UTI Physical Exam Vital Signs: Temp Pulse Resp BP Pulse Ox 98.1 F 87 22 H 148/74 H 98 03/30/18 16:18 03/30/18 16:18 03/30/18 16:18 03/30/18 16:18 03/30/18 16:18 Intake & Output 03/29/18 03/30/18 03/31/18 06:59 06:59 06:59 Intake Total 620 621 Output Total 900 Balance -280 621 Weight 105.3 kg 105.9 kg General appearance: PRESENT: no acute distress Head exam: PRESENT: atraumatic Neck exam: ABSENT: carotid bruit, JVD, lymphadenopathy, thyromegaly Respiratory exam: PRESENT: clear to auscultation carmela. ABSENT: rales, rhonchi, wheezes Cardiovascular exam: PRESENT: RRR. ABSENT: diastolic murmur, rubs, systolic murmur GI/Abdominal exam: PRESENT: normal bowel sounds, soft. ABSENT: distended, guarding, mass, organolmegaly, rebound, tenderness Neurological exam: PRESENT: alert, awake, oriented to time, oriented to situation Results Impressions: Chest X-Ray 03/28/18 00:00 IMPRESSION: NO ACUTE RADIOGRAPHIC FINDING IN THE CHEST. A PACEMAKER IS PRESENT. MRI IS CONTRAINDICATED AT THIS TIME. Head CT 03/28/18 00:00 IMPRESSION: MILD CHRONIC CHANGES OF ATROPHY AND MICROVASCULAR ISCHEMIA. 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 NO ACUTE PROCESS. EVIDENCE OF ACUTE STROKE: NO. Assessment & Plan - Diagnosis (1) Altered mental status Is this a current diagnosis for this admission?: Yes Plan: Improving (2) Complicated UTI (urinary tract infection) Is this a current diagnosis for this admission?: Yes Plan: Treated with IV Levaquin (3) Atrial fibrillation and flutter Is this a current diagnosis for this admission?: Yes Plan: Currently she is in sinus and rate is controlled (4) Hypothyroidism Qualifiers: Hypothyroidism type: acquired Qualified Code(s): E03.9 - Hypothyroidism, unspecified Is this a current diagnosis for this admission?: Yes Plan: I will continue her Synthroid in the meantime we will check her TSH is a status of her condition (5) Chronic lymphocytic leukemia Is this a current diagnosis for this admission?: Yes Plan: In remission (6) Hypertension Qualifiers: Hypertension type: essential hypertension Qualified Code(s): I10 - Essential (primary) hypertension Is this a current diagnosis for this admission?: Yes Plan: Continue her home medication (7) Hyperlipidemia Qualifiers: Hyperlipidemia type: unspecified Qualified Code(s): E78.5 - Hyperlipidemia , unspecified Is this a current diagnosis for this admission?: Yes Plan: Continue home statin
[2018-03-30] MEDS: BUSPIRONE HCL 10 MG TABLET PO SCH (22:08)
[2018-03-31] MEDS: OXYCODONE-ACETAMINOPHEN 5-325 MG TABLET PO SCH ×6 (05:23→21:07)
[2018-03-31] MEDS: GUAIFENESIN 600 MG TABLET.SA PO SCH ×2 (06:56→17:04)
[2018-03-31] MEDS: LANSOPRAZOLE 30 MG TAB.RAP.DR PO SCH (06:56)
[2018-03-31] MEDS ORDERED: GLYCERIN (ADULT) SUPP.RECT PR ONE (09:00)
[2018-03-31] MEDS ORDERED: ONDANSETRON 4 MG TAB.RAPDIS PO PRN (09:00)
[2018-03-31] MEDS: METOPROLOL TARTRATE 50 MG TABLET PO SCH ×2 (09:15→21:06)
[2018-03-31] MEDS: BUSPIRONE HCL 10 MG TABLET PO SCH ×2 (09:16→21:07)
[2018-03-31] MEDS: ENOXAPARIN SODIUM INJ 40 MG/0.4 ML DISP.SYRIN SUBCUT SCH (09:17)
[2018-03-31] MEDS: POLYETHYLENE GLYCOL 3350 POWDER 17 GM/1 PACKET PO SCH (09:18)
[2018-03-31] MEDS: NYSTATIN OINTMENT 15 GM TUBE TP SCH ×2 (09:19→17:05)
[2018-03-31] MEDS: IPRATROPIUM/ALBUTEROL 0.5-2.5 MG/3 ML AMPUL NEB PRN (09:56)
[2018-03-31] MEDS: DIVALPROEX SODIUM 250 MG TABLET.DR PO SCH (12:13)
--- NOTE | 2018-03-31 17:35 | PDOC TRANSFER SUMMARY ---
General - Admit/Disc Date/PCP Admission Date/Primary Care Provider: 03/28/18 13:13 JALEN JAMIL NP Discharge Date: 03/31/18 - Discharge Diagnosis (1) Altered mental status Is this a current diagnosis for this admission?: Yes (2) Complicated UTI (urinary tract infection) Is this a current diagnosis for this admission?: Yes (3) Atrial fibrillation and flutter Is this a current diagnosis for this admission?: Yes (4) Hypothyroidism Is this a current diagnosis for this admission?: Yes (5) Chronic lymphocytic leukemia Is this a current diagnosis for this admission?: Yes (6) Hypertension Is this a current diagnosis for this admission?: Yes (7) Hyperlipidemia Is this a current diagnosis for this admission?: Yes - Additional Information Resuscitation Status: Full Code Home Medications: Oxycodone HCl/Acetaminophen [Oxycodone-Acetaminophen 10-325] 1 tab PO Q4 History of Present Illness Admission Date/PCP: 03/28/18 13:13 JALEN JAMIL NP History of Present Illness: KHUSHI BARTLETT is a 87 year old female past medical history of hypertension, hypothyroidism, hyperlipidemia, chronic lymphocytic leukemia in remission and paroxysmal atrial fibrillation/atrial flutter brought complaint altered mental status evidenced by auditory and visual hallucination. Patient is not able to give coherent history, she just repeatedly tells me she is about to lose her mind. Brief history is obtained from ER attending note per ER attending note the patient normally lives alone is brought to emergency room by her daughters for 48 hours history of auditory and visual hallucinations she is seeing things on the ja[place]. She is seeing people in her house that are not present. She called her neighbor's at 4 in the morning saying there are people in her house going through her staff. She has also history of watery diarrhea that has been going on for the last 2-3 months. Reportedly patient has recurrent long-standing history of urinary tract infection. Her initial workup is unremarkable except her urine analysis which is positive for large leukocyte esterase and was WBC count of greater than 182. The detailed history and review of systems unobtainable. Hospital Course Hospital Course: This is 87 years old female patient who lives by herself, brought yesterday with chief complaint of auditory and visual hallucination. Patient also found to have complicated UTI for which she had been with Levaquin. Despite treating the UTI patient continued to have visual hallucination. I started the patient was low-dose Seroquel 25 mg p.o. nightly. Psych consulted on this patient and after the evaluated her started her on Depakote and BuSpar and recommended to discontinue the Seroquel. After discussion with the family which includes 3 daughters and son with a decision to put her in rehab facility then [place]ed [place] [facility]. Currently patient is stable and relatively oriented. Physical Exam Vital Signs: Temp Pulse Resp BP Pulse Ox 98.1 F 69 19 139/71 H 94 03/31/18 15:18 03/31/18 15:18 03/31/18 15:18 03/31/18 15:18 03/31/18 15:18 Intake & Output 03/30/18 03/31/18 04/01/18 06:59 06:59 06:59 Intake Total 621 1177 320 Output Total 500 Balance 621 677 320 Weight 105.9 kg 105.7 kg General appearance: PRESENT: no acute distress Eye exam: PRESENT: conjunctiva pink Mouth exam: PRESENT: neck supple Neck exam: ABSENT: carotid bruit, JVD, lymphadenopathy, thyromegaly Respiratory exam: PRESENT: clear to auscultation carmela. ABSENT: rales, rhonchi, wheezes Cardiovascular exam: PRESENT: RRR. ABSENT: diastolic murmur, rubs, systolic murmur GI/Abdominal exam: PRESENT: normal bowel sounds, soft. ABSENT: distended, guarding, mass, organolmegaly, rebound, tenderness Results Impressions: Chest X-Ray 03/28/18 00:00 IMPRESSION: NO ACUTE RADIOGRAPHIC FINDING IN THE CHEST. A PACEMAKER IS PRESENT. MRI IS CONTRAINDICATED AT THIS TIME. Head CT 03/28/18 00:00 IMPRESSION: MILD CHRONIC CHANGES OF ATROPHY AND MICROVASCULAR ISCHEMIA. 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 NO ACUTE PROCESS. EVIDENCE OF ACUTE STROKE: NO. Qualifiers - * PATIENT BEING DISCHARGED WITH ANY OF THE FOLLOWING DIAGNOSIS: No
[2018-04-01] MEDS: OXYCODONE-ACETAMINOPHEN 5-325 MG TABLET PO SCH ×3 (04:17→10:07)
[2018-04-01] MEDS: GUAIFENESIN 600 MG TABLET.SA PO SCH (05:21)
[2018-04-01] MEDS ORDERED: LANSOPRAZOLE 30 MG TAB.RAP.DR PO SCH (06:00)
[2018-04-01] MEDS: BUSPIRONE HCL 10 MG TABLET PO SCH (07:45)
[2018-04-01 08:23] VITALS: BP 156/72
--- NOTE | 2018-04-01 09:33 | PDOC DISCHARGE SUMMARY ---
General - Admit/Disc Date/PCP Admission Date/Primary Care Provider: 03/28/18 13:13 JALEN JAMIL NP Discharge Date: 04/01/18 - Discharge Diagnosis (1) Altered mental status Is this a current diagnosis for this admission?: Yes (2) Atrial fibrillation and flutter Is this a current diagnosis for this admission?: Yes (3) Complicated UTI (urinary tract infection) Is this a current diagnosis for this admission?: Yes (4) Hallucinations Is this a current diagnosis for this admission?: Yes - Additional Information Resuscitation Status: Full Code Discharge Diet: As Tolerated Discharge Activity: Activity As Tolerated Prescriptions: Buspirone HCl [Buspar 10 mg Tablet] 5 mg PO QAM 30 Days #30 tablet Buspirone HCl [Buspar 10 mg Tablet] 10 mg PO QHS 30 Days #30 tablet Divalproex Sodium 250 mg PO DAILY #30 tablet. Oxycodone HCl/Acetaminophen [Oxycodone-Acetaminophen 10-325] 1 tab PO Q4 #30 tablet Home Medications: Acetaminophen [Tylenol 325 mg Tablet] 650 mg PO Q4HP PRN tablet 04/01/18 Buspirone HCl [Buspar 10 mg Tablet] 5 mg PO QAM 30 Days #30 tablet 04/01/18 Buspirone HCl [Buspar 10 mg Tablet] 10 mg PO QHS 30 Days #30 tablet 04/01/18 Divalproex Sodium 250 mg PO DAILY #30 tablet. 04/01/18 Ipratropium/Albuterol Sulfate [Duoneb 3 ml Ampul] 3 ml NEB RTQ8HP PRN vial.brodie 04/01/18 Lansoprazole [Prevacid 30 mg Odt Tablet] 30 mg PO Q6AM tab.rap. 04/01/18 Metoprolol Tartrate [Lopressor 50 mg Tablet] 50 mg PO Q12 tablet 04/01/18 Nystatin [Mycostatin Ointment 15 gm] 1 applic TP BID tube 04/01/18 Oxycodone HCl/Acetaminophen [Oxycodone-Acetaminophen 10-325] 1 tab PO Q4 #30 tablet 04/01/18 Polyethylene Glycol 3350 [Miralax Powder 17 gm/Packet] 17 gm PO DAILY powd.pack 04/01/18 History of Present Illness History of Present Illness: KHUSHI BARTLETT is a 87 year old female who was admitted for hallucinations and UTI. please see original H&P. Hospital Course Hospital Course: After admission patient was started on antibiotics and psych was consulted. please see discharge summary by provider from 03/31/18 I spoke with patient and son today about her elevated BP. she's on metoprolol but her BP has still been a little high. son is not concerned and is not ready to start any medications on day of discharge. she's planned to be discharged at noon today. son is going to talk to rehab center in [place] about adjusting medications or adding new medications. I have given her scripts for her new anti-psychotics and pain meds. Physical Exam Vital Signs: Temp Pulse Resp BP Pulse Ox 98.1 F 70 22 H 156/72 H 100 04/01/18 08:07 04/01/18 08:07 04/01/18 08:07 04/01/18 08:07 04/01/18 08:07 Intake & Output 03/31/18 04/01/18 04/02/18 06:59 06:59 06:59 Intake Total 1177 320 Output Total 500 Balance 677 320 Weight 233 lb 0.458 oz 235 lb 14.314 oz General appearance: PRESENT: no acute distress, other - obese female Head exam: PRESENT: atraumatic, normocephalic Eye exam: PRESENT: EOMI, PERRLA. ABSENT: scleral icterus Ear exam: PRESENT: normal external ear exam Mouth exam: PRESENT: moist, tongue midline Neck exam: ABSENT: tracheal deviation Respiratory exam: PRESENT: clear to auscultation carmela, decreased breath sounds - bilaterally- likely due to poor inspiratory effort and body habitus. ABSENT: accessory muscle use, chest wall tenderness, rales, rhonchi, wheezes Cardiovascular exam: PRESENT: +S1, +S2 Pulses: PRESENT: +2 pedal pulses bilateral GI/Abdominal exam: PRESENT: normal bowel sounds, soft. ABSENT: tenderness Gentrourinary exam: ABSENT: erythema Neurological exam: PRESENT: alert, awake, oriented to person, oriented to place , oriented to time, CN II-XII grossly intact Skin exam: PRESENT: dry, warm Results Impressions: Chest X-Ray 03/28/18 00:00 IMPRESSION: NO ACUTE RADIOGRAPHIC FINDING IN THE CHEST. A PACEMAKER IS PRESENT. MRI IS CONTRAINDICATED AT THIS TIME. Head CT 07/30/18 00:00 IMPRESSION: MILD CHRONIC CHANGES OF ATROPHY AND MICROVASCULAR ISCHEMIA. 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 NO ACUTE PROCESS. EVIDENCE OF ACUTE STROKE: NO. Qualifiers - * PATIENT BEING DISCHARGED WITH ANY OF THE FOLLOWING DIAGNOSIS: No VTE patient discharged on overlapping Therapy?: No
[2018-04-01] MEDS: ENOXAPARIN SODIUM INJ 40 MG/0.4 ML DISP.SYRIN SUBCUT SCH (10:07)
[2018-04-01] MEDS: DIVALPROEX SODIUM 250 MG TABLET.DR PO SCH (10:07)
[2018-04-01] MEDS: POLYETHYLENE GLYCOL 3350 POWDER 17 GM/1 PACKET PO SCH (10:07)
[2018-04-01] MEDS: METOPROLOL TARTRATE 50 MG TABLET PO SCH (10:07)
[2018-04-01] MEDS: NYSTATIN OINTMENT 15 GM TUBE TP SCH (10:14)
== END 2018-04-01 11:17 | disposition short-term general hospital (02) | DRG 690 ==
LOC: ER 16:28 → EH 19:44 → 5 21:09 → OBSVTOIN 03-28 13:13
PROVIDERS: ADMIT Internal Medicine; ATTEND Internal Medicine
DX: N39.0 Urinary tract infection, site not specified (principal); I48.92 Unspecified atrial flutter; I48.91 Unspecified atrial fibrillation; R44.1 Visual hallucinations; R41.82 Altered mental status, unspecified; E03.9 Hypothyroidism, unspecified; E78.5 Hyperlipidemia, unspecified; E78.00 Pure hypercholesterolemia, unspecified; I10 Essential (primary) hypertension; K21.9 Gastro-esophageal reflux disease without esophagitis; B95.2 Enterococcus as the cause of diseases classified elsewhere; B96.20 Unspecified Escherichia coli [E. coli] as the cause of diseases classified elsewhere; Z60.2 Problems related to living alone; Z95.0 Presence of cardiac pacemaker; Z85.6 Personal history of leukemia
CPT/HCPCS: 36415; 70450; 71045; 80048; 80053; 81001; 82550; 84439; 84443; 84481; 84484; 85025; 85027; 85610; 87040; 87086; 87088; 87186; 93005; 93010; 94640; 96365; 99285; G0378; G8978-GP; G8979-GP; J1630; J1650; J1956; J3490; J7030; J7620

== ENCOUNTER 2018-05-17 18:11 | Emergency (ER) | payer MEDICARE, OTHER ==
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
[2018-05-17 18:56] LABS: ABSOLUTE BASOPHILS # (AUTO) 0.1 10^3/uL (0.0-0.2); ABSOLUTE EOSINOPHILS # (AUTO) 0.2 10^3/uL (0.0-0.6); ABSOLUTE LYMPHOCYTES (AUTO) 2.2 10^3/uL (0.5-4.7); ABSOLUTE MONOCYTES (AUTO) 0.8 10^3/uL (0.1-1.4); ABSOLUTE NEUT (AUTO) 3.4 10^3/uL (1.7-8.2); BASOPHILS % (AUTO) 0.8 % (0-2); EOSINOPHILS % (AUTO) 2.8 % (0-6); HEMOGLOBIN 13.9 g/dL (12.0-15.5); LYMPHOCYTES % (AUTO) 32.7 % (13-45); MEAN CORPUSCULAR HEMOGLOBIN 29.1 pg (27.0-33.4); MEAN CORPUSCULAR HGB CONC 32.3 g/dL (32.0-36.0); MEAN CORPUSCULAR VOLUME 90 fl (80-97); PLATELET COUNT 221 10^3/uL (150-450); RED BLOOD COUNT 4.76 10^6/uL (3.72-5.28); RED CELL DISTRIBUTION WIDTH 17.6 % (11.5-14.0); SEGMENTED NEUTROPHILS % (AUTO) 51.7 % (42-78); TOTAL CELLS COUNTED % (AUTO) 100 %; WHITE BLOOD COUNT 6.7 10^3/uL (4.0-10.5)
[2018-05-17 19:02] LABS: APPEARANCE,URINE CLEAR; BILIRUBIN,URINE NEGATIVE (NEGATIVE); COLOR,URINE AMBER; GLUCOSE, URINE NEGATIVE (NEGATIVE); KETONES,URINE 20 mg/dL (NEGATIVE); LEUKOCYTE ESTERASE,URINE NEGATIVE (NEGATIVE); NITRITE,URINE NEGATIVE (NEGATIVE); PROTEIN,URINE >=500 mg/dL (NEGATIVE); URINE SPECIFIC GRAVITY 1.019
[2018-05-17 19:20] LABS: ALANINE AMINOTRANSFERASE 22 U/L (9-52); ALBUMIN 4.2 g/dL (3.5-5.0); ALKALINE PHOSPHATASE 62 U/L (38-126); ANION GAP 10 (5-19); ASPARTATE AMINO TRANSFERASE 30 U/L (14-36); BILIRUBIN,DIRECT 0.7 mg/dL (0.0-0.4); BILIRUBIN,TOTAL 0.9 mg/dL (0.2-1.3); BLOOD UREA NITROGEN 8 mg/dL (7-20); CALCIUM 9.2 mg/dL (8.4-10.2); CARBON DIOXIDE 30 mmol/L (22-30); CHLORIDE 101 mmol/L (98-107); GLUCOSE 106 mg/dL (75-110); POTASSIUM 3.1 mmol/L (3.6-5.0); SODIUM 140.6 mmol/L (137-145); TOTAL PROTEIN 6.6 g/dL (6.3-8.2)
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
--- NOTE | 2018-05-17 22:12 | RADIOLOGY REPORT (SQ) ---
EXAM DESCRIPTION: XR CHEST 1 VIEW COMPLETED DATE/TME: 05/17/2018 20:02 CLINICAL HISTORY: 87 years, Female, sob, elevated BNP COMPARISON: None. NUMBER OF VIEWS: EXAM DESCRIPTION: CLINICAL HISTORY: sob, elevated BNP COMPARISON: 03/28/2018 FINDINGS: Single view of the chest is submitted. There is a prosthetic right shoulder that appears intact. There is atelectasis at the left lung base. Electronic cardiac device and leads are present. Cardiac silhouette is normal. No focal parenchymal or pleural disease. No acute bony abnormality. There is no significant pulmonary vascular engorgement. IMPRESSION: No evidence of acute cardiopulmonary disease.
--- NOTE | 2018-05-17 22:28 | RADIOLOGY REPORT (SQ) ---
EXAM DESCRIPTION: CT HEAD WITHOUT IV CONTRAST COMPLETED DATE/TME: 05/17/2018 20:02 CLINICAL HISTORY: 87 years, Female, altered mentation per daughter COMPARISON: None. TECHNIQUE: Images stored on PACS. All CT scanners at this facility use dose modulation, iterative reconstruction, and/or weight based dosing when appropriate to reduce radiation dose to as low as reasonably achievable (ALARA). [facility]: Dose Right [facility]: CareDose [facility]: Dose Right [facility]: Teradose 4D [facility]: SMX LIMITATIONS: None. FINDINGS: EXAM DESCRIPTION: CLINICAL HISTORY: altered mentation per daughter COMPARISON: None Available TECHNIQUE: Contiguous axial CT images of the head were obtained. Coronal and sagittal reconstructions were created from the axial data. This exam was performed according to our departmental dose-optimization program, which includes automated exposure control, adjustment of the mA and/or kV according to patient size and/or use of iterative reconstruction technique. FINDINGS: There is moderately well defined decreased attenuation in the right radiata measuring approximately 12 mm. This may be sequela of prior insult. It is better defined than expected for acute edema. There is no other definite evidence of acute mass, mass effect, midline shift or hemorrhage. The ventricles and extra-axial CSF spaces are unremarkable. The brain parenchyma appears otherwise normal for the patient's age. No acute abnormalities of the bones is seen. IMPRESSION: No definite acute intracranial abnormality.
[2018-05-17] MEDS ORDERED: POTASSIUM CHLORIDE 10 MEQ CAPSULE.ER PO ONE (23:47)
[2018-05-18 00:54] VITALS: BP 177/71
== END 2018-05-18 00:55 | disposition home or self-care (01) ==
LOC: ER 18:11
DX: R41.82 Altered mental status, unspecified (principal); E87.6 Hypokalemia; R60.0 Localized edema; Z85.6 Personal history of leukemia; Z90.49 Acquired absence of other specified parts of digestive tract; Z96.653 Presence of artificial knee joint, bilateral; Z98.890 Other specified postprocedural states
CPT/HCPCS: 99285; 51701; 36415; 87040; 87086; 85025; 80053; 81001; 83880; 71045; 70450; A9270

== ENCOUNTER 2018-05-24 06:45 | Emergency (ER) | payer MEDICARE, OTHER ==
--- NOTE | 2018-05-24 08:03 | ER Document Report ---
ED General - General Chief Complaint: Fall Stated Complaint: FALL/BACK PAIN Time Seen by Provider: 05/24/18 07:19 Mode of Arrival: Medic Information source: Relative Notes: Patient is an 88-year-old female who presents with chief complaint of fall. [facility] her [facility] group home off the bed. It is unclear what caused her to fall. Patient has history of dementia. Patient's daughter is at bedside states that she has been placed on Depakote and BuSpar approximately 1 month ago, states that she thinks these are making her confusion worse. TRAVEL OUTSIDE OF THE [place] IN LAST 30 DAYS: No - Related Data Allergies/Adverse Reactions: Cephalosporins Allergy (Severe, Verified 05/17/18 18:40) Anaphylaxis lisinopril [From Zestril] Allergy (Severe, Verified 05/17/18 18:40) Hives bacitracin [From Neosporin] Allergy (Intermediate, Verified 05/17/18 18:40) Blisters gramicidin D [From Neosporin] Allergy (Intermediate, Verified 05/17/18 18:40) Blisters latex [Latex] Allergy (Intermediate, Verified 05/17/18 18:40) LATEX neomycin sulfate [From Neosporin] Allergy (Intermediate, Verified 05/17/18 18:40 ) Blisters polymyxin B [From Neosporin] Allergy (Intermediate, Verified 05/17/18 18:40) Blisters sulindac [Sulindac] Allergy (Unknown, Verified 05/17/18 18:40) flector patch Allergy (Intermediate, Uncoded 05/17/18 18:40) Blisters soaps Allergy (Intermediate, Uncoded 05/17/18 18:40) tape Allergy (Intermediate, Uncoded 05/17/18 18:40) Blisters Past Medical History - General Information source: Relative - Social History Smoking Status: Never Smoker Chew tobacco use (# tins/day): No Family History: Reviewed & Not Pertinent Patient has suicidal ideation: No Patient has homicidal ideation: No - Past Medical History Cardiac Medical History: Reports: Hx Atrial Fibrillation, Hx Hypercholesterolemia, Hx Hypertension Denies: Hx Coronary Artery Disease, Hx Heart Attack Pulmonary Medical History: Reports: Hx Bronchitis, Hx Pneumonia Denies: Hx Asthma, Hx COPD Neurological Medical History: Denies: Hx Cerebrovascular Accident, Hx Seizures Endocrine Medical History: Denies: Hx Hypothyroidism Renal/ Medical History: Denies: Hx Peritoneal Dialysis Malignancy Medical History: Reports: Hx Leukemia - CLL GI Medical History: Reports: Hx Gastroesophageal Reflux Disease, Hx Irritable Bowel Musculoskeletal Medical History: Reports Hx Arthritis Past Surgical History: Reports: Hx Cholecystectomy, Hx Gynecologic Surgery - Uterine cyst removal, Hx Orthopedic Surgery - Bilateral knee replacement, and right shoulder surgery.. Denies: Hx Pacemaker - Immunizations Hx Diphtheria, Pertussis, Tetanus Vaccination: Yes Hx Pneumococcal Vaccination: 08/30/99 Review of Systems - Review of Systems Musculoskeletal: See HPI -: Yes All other systems reviewed and negative Physical Exam - Notes Notes: PHYSICAL EXAMINATION: GENERAL: Well-appearing, well-nourished and in no acute distress. HEAD: Atraumatic, normocephalic. EYES: Pupils equal round and reactive to light, extraocular movements intact, conjunctiva are normal. ENT: Nares patent, oropharynx clear without exudates. Moist mucous membranes. NECK: Normal range of motion, supple without lymphadenopathy LUNGS: Breath sounds clear to auscultation bilaterally and equal. No wheezes rales or rhonchi. HEART: Regular rate and rhythm without murmurs ABDOMEN: Soft, nontender, nondistended abdomen. No guarding, no rebound. No masses appreciated. Female : No CVA tenderness Musculoskeletal: Normal range of motion, no pitting or edema. No cyanosis. Tenderness to palpation to left anterior shoulder. NEUROLOGICAL: Cranial nerves grossly intact. Normal speech. Normal sensory, motor exams PSYCH: Normal mood, normal affect, oriented to self. SKIN: Erythematous area noted to pelvic region consistent with yeast rash. Course - Re-evaluation Re-evalutation: 05/24/18 08:02 Daughter at bedside concerned that patient has increased confusion from her baseline. No notable injuries on physical examination, patient does report pain to her left shoulder. Will order a left shoulder x-ray, head CT and urinalysis. 05/24/18 09:14 Urinalysis with no signs of infection. Head CT and shoulder x-ray are both negative. Patient will be discharged back to the nursing facility in stable condition. - Laboratory Laboratory results interpreted by me: 05/24/18 08:05 Urine Protein 100 H Urine Urobilinogen 2.0 H Discharge - Discharge Clinical Impression: Fall Qualifiers: Encounter type: initial encounter Qualified Code(s): W19.XXXA - Unspecified fall, initial encounter Condition: Stable Disposition: HOME, SELF-CARE Additional Instructions: The CAT scan of your head and x-ray of your left shoulder are both negative for any acute findings. We also checked her urine to make sure you do not have a urinary infection as her daughter was concerned. The urinalysis does not show any abnormalities. We will send it for culture and we will call you in 2-3 days if there are any abnormalities found. You are cleared to return to the nursing facility. Referrals: TRU CORRAL MD [Primary Care Provider] - Follow up as needed
[2018-05-24 08:30] LABS: APPEARANCE,URINE CLEAR; BILIRUBIN,URINE NEGATIVE (NEGATIVE); COLOR,URINE YELLOW; GLUCOSE, URINE NEGATIVE (NEGATIVE); KETONES,URINE NEGATIVE (NEGATIVE); LEUKOCYTE ESTERASE,URINE NEGATIVE (NEGATIVE); NITRITE,URINE NEGATIVE (NEGATIVE); PROTEIN,URINE 100 mg/dL (NEGATIVE); URINE SPECIFIC GRAVITY 1.018
--- NOTE | 2018-05-24 09:09 | RADIOLOGY REPORT (SQ) ---
EXAM DESCRIPTION: SHOULDER LEFT 2 OR MORE VIEWS COMPLETED DATE/TIME: 05/24/2018 8:31 am REASON FOR STUDY: fall COMPARISON: None. NUMBER OF VIEWS: Three views. TECHNIQUE: Internal rotation, external rotation, and Y view images acquired of the left shoulder. LIMITATIONS: None. FINDINGS: MINERALIZATION: Normal. BONES: No acute fracture or dislocation. No worrisome bone lesions. JOINTS: Advanced degenerative changes in the glenohumeral joint. Loose bodies. VISUALIZED LUNGS AND RIBS: No pneumothorax. No rib fracture. SOFT TISSUES: No radiopaque foreign body. OTHER: No other significant finding. IMPRESSION: NO RADIOGRAPHIC EVIDENCE OF ACUTE INJURY. TECHNICAL DOCUMENTATION: JOB ID: [id number] [employer]- All Rights Reserved Reading location - IP/workstation name: [email or web address]
--- NOTE | 2018-05-24 09:10 | RADIOLOGY REPORT (SQ) ---
EXAM DESCRIPTION: CT HEAD WITHOUT COMPLETED DATE/TIME: 05/24/2018 8:53 am REASON FOR STUDY: fall COMPARISON: 05/17/2018 TECHNIQUE: Axial images acquired through the brain without intravenous contrast. Images reviewed wi th bone, brain and subdural windows. Additional sagittal and coronal reconstructions were generated. Images stored on PACS. All CT scanners at this facility use dose modulation, iterative reconstruction, and/or weight based d osing when appropriate to reduce radiation dose to as low as reasonably achievable (ALARA). [facility]: Dose Right [facility]: CareDose [facility]: Dose Right [facility]: Teradose 4D [facility]: [employer] RADIATION DOSE: CT Rad equipment meets quality standard of care and radiation dose reduction techniq ues were employed. CTDIvol: 53.2 mGy. DLP: 2088 mGy-cm.mGy. LIMITATIONS: Motion. FINDINGS: VENTRICLES: Prominent. CEREBRUM: No masses. No hemorrhage. No midline shift. Areas of low density in the white matter mos t likely due to chronic micro-vascular ischemic change. No evidence for acute infarction. CEREBELLUM: No masses. No hemorrhage. No alteration of density. No evidence for acute infarction. EXTRAAXIAL SPACES: Age-related involutional change. No fluid collections. No masses. ORBITS AND GLOBE: No intra- or extraconal masses. Normal contour of globe without masses. CALVARIUM: No fracture. PARANASAL SINUSES: No fluid or mucosal thickening. SOFT TISSUES: No mass or hematoma. OTHER: No other significant finding. IMPRESSION: CHRONIC CHANGES OF ATROPHY AND MICROVASCULAR ISCHEMIA. NO ACUTE PROCESS. EVIDENCE OF ACUTE STROKE: NO. TECHNICAL DOCUMENTATION: JOB ID: [id number] Quality ID # [id number]: Final reports with documentation of one or more dose reduction techniques (e.g., Au tomated exposure control, adjustment of the mA and/or kV according to patient size, use of iterative reconstruction technique) 2010 [employer]- All Rights Reserved Reading location - IP/workstation name: [email or web address]
== END 2018-05-24 11:30 | disposition home or self-care (01) ==
LOC: ER 06:45
DX: M25.512 Pain in left shoulder (principal); W06.XXXA Fall from bed, initial encounter; Y92.122 Bedroom in nursing home as the place of occurrence of the external cause; F03.90 Unspecified dementia, unspecified severity, without behavioral disturbance, psychotic disturbance, mood disturbance, and anxiety; I10 Essential (primary) hypertension; L53.9 Erythematous condition, unspecified; Z88.1 Allergy status to other antibiotic agents; Z88.8 Allergy status to other drugs, medicaments and biological substances; Z88.3 Allergy status to other anti-infective agents; Z91.040 Latex allergy status; Z91.048 Other nonmedicinal substance allergy status; Z85.6 Personal history of leukemia
CPT/HCPCS: 70450; 81001; 87086; 99284

== ENCOUNTER 2018-06-02 12:03 | Emergency (ER) | payer MEDICARE ==
--- NOTE | 2018-06-02 12:27 | ER Document Report ---
ED Fall - General Chief Complaint: Fall Stated Complaint: FALL Time Seen by Provider: 06/02/18 12:17 Notes: Patient is a resident of a local assisted living facility. She said that she was carrying a couple of spreads to wash them and somehow ended up falling and hitting the back of her head. She does not think she tripped on the spreads, but she did not have a fainting episode or syncopal episode and did not experience a loss of consciousness. She has pain in the back of her head, perhaps a slight bit of posterior neck discomfort, and no other injuries. Specifically, patient denies rib pains or chest pains anywhere. Denies any difficulty breathing or shortness of breath. TRAVEL OUTSIDE OF THE [place] IN LAST 30 DAYS: No - Related data Allergies/Adverse Reactions: Cephalosporins Allergy (Severe, Verified 05/17/18 18:40) Anaphylaxis lisinopril [From Zestril] Allergy (Severe, Verified 05/17/18 18:40) Hives bacitracin [From Neosporin] Allergy (Intermediate, Verified 05/17/18 18:40) Blisters gramicidin D [From Neosporin] Allergy (Intermediate, Verified 05/17/18 18:40) Blisters latex [Latex] Allergy (Intermediate, Verified 05/17/18 18:40) LATEX neomycin sulfate [From Neosporin] Allergy (Intermediate, Verified 05/17/18 18:40 ) Blisters polymyxin B [From Neosporin] Allergy (Intermediate, Verified 05/17/18 18:40) Blisters sulindac [Sulindac] Allergy (Unknown, Verified 05/17/18 18:40) flector patch Allergy (Intermediate, Uncoded 05/17/18 18:40) Blisters soaps Allergy (Intermediate, Uncoded 05/17/18 18:40) tape Allergy (Intermediate, Uncoded 05/17/18 18:40) Blisters Past Medical History - Social History Smoking Status: Never Smoker Chew tobacco use (# tins/day): No Frequency of alcohol use: None Drug Abuse: None Family History: Reviewed & Not Pertinent Patient has suicidal ideation: No Patient has homicidal ideation: No - Past Medical History Cardiac Medical History: Reports: Hx Atrial Fibrillation, Hx Hypercholesterolemia, Hx Hypertension Pulmonary Medical History: Reports: Hx Bronchitis, Hx Pneumonia Malignancy Medical History: Reports: Hx Leukemia - CLL GI Medical History: Reports: Hx Gastroesophageal Reflux Disease, Hx Irritable Bowel Musculoskeletal Medical History: Reports Hx Arthritis Past Surgical History: Reports: Hx Cholecystectomy, Hx Gynecologic Surgery - Uterine cyst removal, Hx Orthopedic Surgery - Bilateral knee replacement, and right shoulder surgery.. Denies: Hx Pacemaker - Immunizations Hx Diphtheria, Pertussis, Tetanus Vaccination: Yes Hx Pneumococcal Vaccination: 08/30/99 Review of Systems - Review of Systems Notes: REVIEW OF SYSTEMS: CONSTITUTIONAL : Denies fever. EENT: Denies eye, ear, nose or mouth or throat pain or other symptoms. Headache in the posterior occipital region. CARDIOVASCULAR: Denies chest pain. RESPIRATORY: Denies cough, chest congestion, or shortness of breath. GASTROINTESTINAL: Denies abdominal pain or nausea, vomiting, or diarrhea. GENITOURINARY: Denies difficulty or painful urinating, urinary frequency, blood in urine. MUSCULOSKELETAL: Denies back or neck pain. Denies joint pain or swelling. SKIN: Denies rash or skin lesions. NEUROLOGICAL: Denies LOC or altered mental status. Denies headache. Denies sensory loss or motor deficits. ALL OTHER SYSTEMS REVIEWED AND NEGATIVE. Physical Exam - Vital signs Vitals: Temp Pulse Resp BP Pulse Ox 97.7 F 84 16 139/70 H 95 06/02/18 12:18 06/02/18 12:18 06/02/18 12:18 06/02/18 12:18 06/02/18 12:18 Interpretation: Normal Notes: PHYSICAL EXAMINATION: GENERAL: Well-appearing, in no acute distress. Resting comfortably laying on the stretcher. HEAD: Atraumatic, normocephalic. No swelling or hematoma seen or felt. No break in the skin or bleeding seen. EYES: Pupils equal round and reactive to light, extraocular movements intact. ENT: oropharynx clear without exudates. Moist mucous membranes. NECK: Normal range of motion, supple. No posterior midline tenderness. LUNGS: Breath sounds clear and equal bilaterally. HEART: Regular rate and rhythm without murmurs. ABDOMEN: Soft, nontender. No guarding or rebound. No masses. BACK: No tenderness throughout entire back. EXTREMITIES: Normal range of motion without pain. NEUROLOGICAL: Normal speech, normal gait. Normal sensory, motor, and reflex exams. Awake, alert, and oriented x3. PSYCH: Normal mood, normal affect. SKIN: Warm, dry, no rashes. No breaks in the skin such as in the occipital region of the scalp. Course - Re-evaluation Re-evalutation: 06/02/18 14:49 Daughter is here and says the patient has limited mobility, using a walker to get around sparingly as the custodial where she resides. She had a UTI a couple of months ago and ever since then she has been weak and less able to get around. - Vital Signs Vital signs: Temp Pulse Resp BP Pulse Ox 97.3 F 72 16 154/76 H 99 06/02/18 15:09 06/02/18 15:09 06/02/18 15:09 06/02/18 15:09 06/02/18 15:09 - Diagnostic Test Radiology reviewed: Image reviewed, Reports reviewed - CT scan of the patient's head and C-spine were both without any acute findings. Chronic degenerative changes of the C-spine noted. Atrophy, etc. noted on the patient's CT of the brain. Discharge - Discharge Clinical Impression: Fall, Contusion of head Condition: Stable Disposition: HOME, SELF-CARE Additional Instructions: HEAD INJURY PRECAUTIONS: At this point, there is no evidence that your head injury is serious. Observation is necessary, however. Take only clear liquids for the first few hours, unless told otherwise by the doctor. If no pain medication was prescribed, you may take acetaminophen according to the directions on the bottle. Do not take any medication that may alter your level of alertness (unless you've discussed it with the doctor first) . Limit activity for the first 24 hours. Bed rest is best. During the first 24 hours, check to see approximately every two to three hours that the patient is easily arousable, responds normally, and can perform common tasks such as walking without difficulty. Contact your doctor or go to the hospital if any of the following things occur: Persistent vomiting, difficulty in arousing the patient, worsening or continued headache, or failure to improve as expected. Head injuries can cause symptoms that persist for a few days or even a few weeks. NECK INJURY (CERVICAL STRAIN): You have a neck strain. This is an injury to the muscles and ligaments in the neck. There is no evidence of a fracture of the neck bones. Also, no injury to the spinal cord or nerve roots was detected. Usually, stiffness and pain INCREASE for the first 24-48 hours after the injury. The pain will gradually resolve and the neck will become more mobile. Most patients are back at work or school within a few days. Typically, complete healing takes about two or three weeks. The usual initial treatment is rest and cold packs. A neck collar may be placed to keep the muscles of the neck at rest. Antiinflammatory and muscle relaxing medication are often used to reduce the spasm and irritation. You should call the doctor, or go to the hospital, if you develop numbness or weakness in any extremity, problems with your bladder or bowel, or pain radiating down the arms. CONTUSION: Your injury has resulted in a contusion -- a crushing of the deep tissues. No injury to important structures was detected during the physician's exam. Contusions vary in the amount of pain they cause, and in the length of time required for healing. Typically, the area will become bruised, and will remain painful to touch for two or three weeks. However, most patients are back to working and playing within a few days. After the initial period of rest and cold-packs, your symptoms (together with the doctor's recommendations) will determine how rapidly you can get back to full activity. Usually this means "do what feels okay, but don't do things that hurt." If re-examination was recommended, it's important to follow up as instructed. Call the doctor or return any time if pain increases, if swelling becomes severe, if you develop numbness or weakness in an injured extremity, or if any other alarming symptoms occur. USE OF TYLENOL (ACETAMINOPHEN): Acetaminophen may be taken for pain relief or fever control. It's much safer than aspirin, offering a wider range of "safe" dosages. It is safe during . Some brand names are Tylenol, Panadol, Datril, Anacin 3, Tempra, and Liquiprin. Acetaminophen can be repeated every four hours. The following are maximum recommended dosages: WEIGHT Dose Drops Elixir Chewable( 80mg) (LBS.) drprs=droppers tsp=teaspoon >89 pounds or adults 650 mg to 900 mg Acetaminophen can be repeated every four hours. Maximum dose not to exceed 4000 mg a day. These maximum recommended dosages are slightly higher than the dosages written on the product container, but these dosages are very safe and below the toxic dosage for acetaminophen. FOLLOW-UP CARE: If you have been referred to a physician for follow-up care, call the physician s office for an appointment as you were instructed or within the next two days. If you experience worsening or a significant change in your symptoms, notify the physician immediately or return to the Emergency Department at any time for re-evaluation. Referrals: TRU CORRAL MD [ACTIVE STAFF] - Follow up as needed
--- NOTE | 2018-06-02 13:48 | RADIOLOGY REPORT (SQ) ---
EXAM DESCRIPTION: CT CERVICAL SPINE WITHOUT COMPLETED DATE/TIME: 06/02/2018 1:13 pm REASON FOR STUDY: Fell and hit head, no LOC, minimal neck pain COMPARISON: None. TECHNIQUE: Axial images acquired through the cervical spine without intravenous contrast. Images re viewed with lung, soft tissue and bone windows. Reconstructed coronal and sagittal MPR images review ed. Images stored on PACS. All CT scanners at this facility use dose modulation, iterative reconstruction, and/or weight based d osing when appropriate to reduce radiation dose to as low as reasonably achievable (ALARA). [facility]: Dose Right [facility]: CareDose [facility]: Dose Right [facility]: Teradose 4D [facility]: Smart [employer] RADIATION DOSE: CT Rad equipment meets quality standard of care and radiation dose reduction techniq ues were employed. CTDIvol: 20.3 mGy. DLP: 416 mGy-cm. mGy. LIMITATIONS: None. FINDINGS: ALIGNMENT: Anatomic. MINERALIZATION: Normal. VERTEBRAL BODIES: No fractures or dislocation. DISCS: There is some mild decrease in the C5-C6 and C6-C7 disc space heights with associated osteophy tic lipping. FACETS, LATERAL MASSES, POSTERIOR ELEMENTS: No fractures. No dislocation. No acute findings. HARDWARE: None in the spine. VISUALIZED RIBS: No fractures. LUNG APICES AND SOFT TISSUES: No significant or acute findings. OTHER: No other significant finding. IMPRESSION: Mild degenerative changes without evidence for fracture. TECHNICAL DOCUMENTATION: JOB ID: [id number] Quality ID # [id number]: Final reports with documentation of one or more dose reduction techniques (e.g., Au tomated exposure control, adjustment of the mA and/or kV according to patient size, use of iterative reconstruction technique) 2010 [employer]- All Rights Reserved Reading location - IP/workstation name: [email or web address]
--- NOTE | 2018-06-02 13:50 | RADIOLOGY REPORT (SQ) ---
EXAM DESCRIPTION: CT HEAD WITHOUT COMPLETED DATE/TIME: 06/02/2018 1:13 pm REASON FOR STUDY: Fell and hit the back of her head, no LOC COMPARISON: 05/24/2018 TECHNIQUE: Axial images acquired through the brain without intravenous contrast. Images reviewed wi th bone, brain and subdural windows. Additional sagittal and coronal reconstructions were generated. Images stored on PACS. All CT scanners at this facility use dose modulation, iterative reconstruction, and/or weight based d osing when appropriate to reduce radiation dose to as low as reasonably achievable (ALARA). [facility]: Dose Right [facility]: CareDose [facility]: Dose Right [facility]: Teradose 4D [facility]: Smart [employer] RADIATION DOSE: CT Rad equipment meets quality standard of care and radiation dose reduction techniq ues were employed. CTDIvol: 53.2 mGy. DLP: 1017 mGy-cm.mGy. LIMITATIONS: None. FINDINGS: VENTRICLES: Prominent. CEREBRUM: No masses. No hemorrhage. No midline shift. Areas of low density in the white matter mos t likely due to chronic micro-vascular ischemic change. No evidence for acute infarction. CEREBELLUM: No masses. No hemorrhage. No alteration of density. No evidence for acute infarction. EXTRAAXIAL SPACES: Age-related involutional change. No fluid collections. No masses. ORBITS AND GLOBE: No intra- or extraconal masses. Normal contour of globe without masses. CALVARIUM: No fracture. PARANASAL SINUSES: No fluid or mucosal thickening. SOFT TISSUES: No mass or hematoma. OTHER: No other significant finding. IMPRESSION: CHRONIC CHANGES OF ATROPHY AND MICROVASCULAR ISCHEMIA. NO ACUTE PROCESS. EVIDENCE OF ACUTE STROKE: NO. TECHNICAL DOCUMENTATION: JOB ID: [id number] Quality ID # [id number]: Final reports with documentation of one or more dose reduction techniques (e.g., Au tomated exposure control, adjustment of the mA and/or kV according to patient size, use of iterative reconstruction technique) 2010 [employer]- All Rights Reserved Reading location - IP/workstation name: [email or web address]
[2018-06-02 15:10] VITALS: BP 154/76
== END 2018-06-02 15:30 | disposition home or self-care (01) ==
LOC: ER 12:03
DX: S00.93XA Contusion of unspecified part of head, initial encounter (principal); W18.30XA Fall on same level, unspecified, initial encounter; Y93.E2 Activity, laundry; Y92.099 Unspecified place in other non-institutional residence as the place of occurrence of the external cause; I48.91 Unspecified atrial fibrillation; E78.00 Pure hypercholesterolemia, unspecified; I10 Essential (primary) hypertension; Z88.3 Allergy status to other anti-infective agents; Z90.49 Acquired absence of other specified parts of digestive tract; Z96.653 Presence of artificial knee joint, bilateral
CPT/HCPCS: 70450; 72125; 99284

== ENCOUNTER 2018-06-09 23:45 | Emergency (ER) | payer MEDICARE, OTHER ==
--- NOTE | 2018-06-10 00:18 | ER Document Report ---
ED General - General Chief Complaint: Sore Throat Stated Complaint: SORE THROAT Time Seen by Provider: 06/09/18 23:54 TRAVEL OUTSIDE OF THE [place] IN LAST 30 DAYS: No - HPI Patient complains to provider of: Sore throat Notes: Patient is a resident of a local nursing care facility coming in for sore throat ongoing for the last 3 days. Patient does have a hoarse voice. Patient states no difficulty in swallowing or drinking. Patient denies any sinus symptoms no sinus drainage no runny nose no cough. Patient denies any shortness of breath. Resting comfortably upon my evaluation no obvious distress. Patient denies any sick contacts or fevers. - Related Data Allergies/Adverse Reactions: Cephalosporins Allergy (Severe, Verified 05/17/18 18:40) Anaphylaxis lisinopril [From Zestril] Allergy (Severe, Verified 05/17/18 18:40) Hives bacitracin [From Neosporin] Allergy (Intermediate, Verified 05/17/18 18:40) Blisters gramicidin D [From Neosporin] Allergy (Intermediate, Verified 05/17/18 18:40) Blisters latex [Latex] Allergy (Intermediate, Verified 05/17/18 18:40) LATEX neomycin sulfate [From Neosporin] Allergy (Intermediate, Verified 05/17/18 18:40 ) Blisters polymyxin B [From Neosporin] Allergy (Intermediate, Verified 05/17/18 18:40) Blisters sulindac [Sulindac] Allergy (Unknown, Verified 05/17/18 18:40) flector patch Allergy (Intermediate, Uncoded 05/17/18 18:40) Blisters soaps Allergy (Intermediate, Uncoded 05/17/18 18:40) tape Allergy (Intermediate, Uncoded 05/17/18 18:40) Blisters Past Medical History - Social History Smoking Status: Unknown if Ever Smoked Family History: Reviewed & Not Pertinent - Past Medical History Cardiac Medical History: Reports: Hx Atrial Fibrillation, Hx Hypercholesterolemia, Hx Hypertension Denies: Hx Coronary Artery Disease, Hx Heart Attack Pulmonary Medical History: Reports: Hx Bronchitis, Hx Pneumonia Denies: Hx Asthma, Hx COPD Neurological Medical History: Denies: Hx Cerebrovascular Accident, Hx Seizures Endocrine Medical History: Denies: Hx Hypothyroidism Renal/ Medical History: Denies: Hx Peritoneal Dialysis Malignancy Medical History: Reports: Hx Leukemia - CLL GI Medical History: Reports: Hx Gastroesophageal Reflux Disease, Hx Irritable Bowel Musculoskeletal Medical History: Reports Hx Arthritis Past Surgical History: Reports: Hx Cholecystectomy, Hx Gynecologic Surgery - Uterine cyst removal, Hx Orthopedic Surgery - Bilateral knee replacement, and right shoulder surgery.. Denies: Hx Pacemaker - Immunizations Hx Diphtheria, Pertussis, Tetanus Vaccination: Yes Hx Pneumococcal Vaccination: 08/30/99 Review of Systems - Review of Systems Constitutional: No symptoms reported EENT: Throat pain Cardiovascular: No symptoms reported Respiratory: No symptoms reported Gastrointestinal: No symptoms reported Genitourinary: No symptoms reported Female Genitourinary: No symptoms reported Musculoskeletal: No symptoms reported Skin: No symptoms reported Hematologic/Lymphatic: No symptoms reported Neurological/Psychological: No symptoms reported -: Yes All other systems reviewed and negative Physical Exam - Vital signs Vitals: Temp Pulse Resp BP Pulse Ox 98.3 F 69 16 123/52 L 98 06/10/18 02:00 06/10/18 02:00 06/10/18 02:00 06/10/18 02:00 06/10/18 02:00 Interpretation: Normal - General General appearance: Appears well, Alert - HEENT Head: Normocephalic, Atraumatic Eyes: Normal Cornea: Normal Eyelashes: Normal Pupils: PERRL Ears: Normal External canal: Normal Tympanic membrane: Normal Sinus: Normal Nasal: Normal Pharynx: Normal Neck: Normal - Respiratory Respiratory status: No respiratory distress Chest status: Nontender Breath sounds: Normal Chest palpation: Normal - Cardiovascular Rhythm: Regular Heart sounds: Normal auscultation Murmur: No - Abdominal Inspection: Normal Distension: No distension Bowel sounds: Normal Tenderness: Nontender Organomegaly: No organomegaly - Back Back: Normal, Nontender - Extremities General upper extremity: Normal inspection, Nontender, Normal color, Normal ROM , Normal temperature General lower extremity: Normal inspection, Nontender, Normal color, Normal ROM , Normal temperature, Normal weight bearing. No: Emmanuel's sign - Neurological Neuro grossly intact: Yes Cognition: Normal Orientation: AAOx4 Kerri Coma Scale Eye Opening: Spontaneous Kerri Coma Scale Verbal: Oriented [place] Coma Scale Motor: Obeys Commands [place] Coma Scale Total: 15 Speech: Normal Motor strength normal: LUE, RUE, LLE, RLE Sensory: Normal - Psychological Associated symptoms: Normal affect, Normal mood - Skin Skin Temperature: Warm Skin Moisture: Dry Skin Color: Normal Course - Re-evaluation Re-evalutation: 06/10/18 00:17 Lidocaine neb will be performed to help the patient's pain rapid strep will also be performed more likely this is viral etiology 06/10/18 01:37 Rapid strep returned negative. Patient otherwise on reevaluation still has no complaints except for being cold in the ER. Blankets were provided to the patient a dose of Decadron was given to the patient states relief of her sore throat with lidocaine neb patient will be discharged back to the nursing care facility. - Vital Signs Vital signs: Temp Pulse Resp BP Pulse Ox 98.3 F 69 16 123/52 L 98 06/10/18 02:00 06/10/18 02:00 06/10/18 02:00 06/10/18 02:00 06/10/18 02:00 Discharge - Discharge Clinical Impression: Sore throat Condition: Good Disposition: HOME, SELF-CARE Instructions: Sore Throat ([facility]) Additional Instructions: Rapid strep was performed on the patient that was negative. Would recommend Tylenol Motrin for pain control. Patient also can use ice water honey and tea for her sore throat. Patient should be reevaluated by her primary care physician in the next 24-48 hours Referrals: TRU CORRAL MD [Primary Care Provider] - Follow up as needed
[2018-06-10] MEDS: LIDOCAINE 1% INJ-PF (10 MG/ML) 30 ML SDV NEB ONE (00:29)
[2018-06-10] MEDS: DEXAMETHASONE 4 MG TABLET PO ONE (00:55)
[2018-06-10 02:02] VITALS: BP 123/52
== END 2018-06-10 05:47 | disposition home or self-care (01) ==
LOC: ER 23:45
DX: J02.9 Acute pharyngitis, unspecified (principal); R49.0 Dysphonia; Z85.6 Personal history of leukemia
CPT/HCPCS: 99283; 87070; 87880; A9270; J3490

== ENCOUNTER 2018-06-13 00:24 | Emergency (ER) | payer MEDICARE, OTHER ==
[2018-06-13] MEDS ORDERED: NORMAL SALINE 1000 ML 1,000 ML IV ONE (00:51)
--- NOTE | 2018-06-13 00:51 | ER Document Report ---
ED General - General Mode of Arrival: Medic Information source: Patient, Relative TRAVEL OUTSIDE OF THE [place] IN LAST 30 DAYS: No <ERIC ROSE - Last Filed: 06/13/18 01:35> <GILLIAN HOLT - Last Filed: 06/13/18 06:48> - General Chief Complaint: Constipation Stated Complaint: CONSTIPATION Time Seen by Provider: 06/13/18 00:34 Notes: 88-year-old female that presents from [facility] to the emergency department today with complaints of "not feeling good". When the patient's daughter arrives, she is able to provide more history including that the patient had a fever of 102 F prior to arrival today, abdominal pain with cramping, and 3 days of a sore throat with nasal congestion and cough as well. Patient states she does have a history of diverticulitis. Patient denies any vomiting. (ERIC ROSE) - Related Data Allergies/Adverse Reactions: Cephalosporins Allergy (Severe, Verified 05/17/18 18:40) Anaphylaxis lisinopril [From Zestril] Allergy (Severe, Verified 05/17/18 18:40) Hives bacitracin [From Neosporin] Allergy (Intermediate, Verified 05/17/18 18:40) Blisters gramicidin D [From Neosporin] Allergy (Intermediate, Verified 05/17/18 18:40) Blisters latex [Latex] Allergy (Intermediate, Verified 05/17/18 18:40) LATEX neomycin sulfate [From Neosporin] Allergy (Intermediate, Verified 05/17/18 18:40 ) Blisters polymyxin B [From Neosporin] Allergy (Intermediate, Verified 05/17/18 18:40) Blisters sulindac [Sulindac] Allergy (Unknown, Verified 05/17/18 18:40) flector patch Allergy (Intermediate, Uncoded 05/17/18 18:40) Blisters soaps Allergy (Intermediate, Uncoded 05/17/18 18:40) tape Allergy (Intermediate, Uncoded 05/17/18 18:40) Blisters Past Medical History - General Information source: Patient, Relative, [facility] Records - Social History Smoking Status: Never Smoker Cigarette use (# per day): No Frequency of alcohol use: None Drug Abuse: None Lives with: Family Family History: Reviewed & Not Pertinent - Past Medical History Cardiac Medical History: Reports: Hx Atrial Fibrillation, Hx Hypercholesterolemia, Hx Hypertension Pulmonary Medical History: Reports: Hx Bronchitis, Hx Pneumonia Malignancy Medical History: Reports: Hx Leukemia - CLL GI Medical History: Reports: Hx Gastroesophageal Reflux Disease, Hx Irritable Bowel Musculoskeletal Medical History: Reports Hx Arthritis Past Surgical History: Reports: Hx Cholecystectomy, Hx Gynecologic Surgery - Uterine cyst removal, Hx Orthopedic Surgery - Bilateral knee replacement, and right shoulder surgery. - Immunizations Hx Diphtheria, Pertussis, Tetanus Vaccination: Yes Hx Pneumococcal Vaccination: 08/30/99 <ERIC ROSE - Last Filed: 06/13/18 01:35> Review of Systems - Review of Systems Constitutional: See HPI, Fever EENT: See HPI, Nose congestion Cardiovascular: No symptoms reported Respiratory: See HPI, Cough Gastrointestinal: See HPI, Abdominal pain, Constipation. denies: Vomiting Genitourinary: No symptoms reported Female Genitourinary: No symptoms reported Musculoskeletal: No symptoms reported Skin: No symptoms reported Hematologic/Lymphatic: No symptoms reported Neurological/Psychological: No symptoms reported -: Yes All other systems reviewed and negative <ERIC ROSE - Last Filed: 06/13/18 01:35> Physical Exam <ERIC ROSE - Last Filed: 06/13/18 01:35> <GILLIAN HOLT - Last Filed: 06/13/18 06:48> - Vital signs Vitals: Temp Pulse Resp BP Pulse Ox 99.7 F 76 18 127/55 H 100 06/13/18 00:36 06/13/18 00:36 06/13/18 00:36 06/13/18 00:36 06/13/18 00:36 - Notes Notes: PHYSICAL EXAM GENERAL: Alert, interacts well. No acute distress. HEAD: Normocephalic, atraumatic. EYES: Pupils equal, round, and reactive to light. Extraocular movements intact. ENT: Oral mucosa moist, tongue midline. NECK: Full range of motion. Supple. Trachea midline. LUNGS: Wet cough, rales in the left lower lobe. No wheezes or rhonchi. No respiratory distress. HEART: Regular rate and rhythm. No murmurs, gallops, or rubs. ABDOMEN: Soft, non-tender. Non-distended. Bowel sounds present in all 4 quadrants. No guarding, rigidity, or rebound. RECTAL: Performed with PCT in attendance, rodolfo stool without gross blood. Normal rectal tone. Area at the 1 oclock position which is firm and tender with palpation without fluctuance. EXTREMITIES: Moves all 4 extremities spontaneously. No edema, radial and dorsalis pedis pulses 2/4 bilaterally. No cyanosis. NEUROLOGICAL: Alert and oriented x3. Normal speech. PSYCH: Normal affect, normal mood. SKIN: Warm, dry, normal turgor. No rashes or lesions noted. (ERIC ROSE) Course <ERIC ROSE - Last Filed: 06/13/18 01:35> - Laboratory Result Diagrams: 06/13/18 01:54 06/13/18 01:54 <GILLIAN HOLT - Last Filed: 06/13/18 06:48> - Re-evaluation Re-evalutation: 06/13/18 04:57 CBC shows slight leukocytosis at 11.9, coags normal, venous blood gas unremarkable, CMP grossly unremarkable, lactic acid normal, urinalysis shows trace ketones but no evidence of infection, it is sent for culture anyway, occult blood is negative, flu swabs are negative, chest x-ray says possibly small pleural effusions may be present but there is no acute process that would explain the fever that was reported by the daughter but not by the assisted living facility, CT scan of the abdomen and pelvis shows no acute process. Patient's abdomen is mildly diffusely tender but nonsurgical, there is no guarding, patient states that her pain feels better, she has not had any diarrhea or vomiting here, there is no evidence of obstruction or impaction. I did discuss with the daughter and the patient that I do not know exactly what is causing the fever. Patient will be discharged back to the [facility], encouraged to drink plenty of fluids and asked to return for any new or concerning symptoms, follow-up with her primary care physician as an outpatient. Blood cultures have been sent and urine culture has been sent and will be followed. (GILLIAN HOLT) - Vital Signs Vital signs: Temp Pulse Resp BP Pulse Ox 98.8 F 76 18 134/57 H 96 06/13/18 06:02 06/13/18 00:36 06/13/18 06:02 06/13/18 06:02 06/13/18 06:02 - Laboratory Laboratory results interpreted by me: 06/13/18 06/13/18 06/13/18 01:54 01:54 01:54 WBC 11.9 H RDW 16.2 H Lymphocytes % 12.9 L Absolute Neutrophils 8.8 H Absolute Monocytes 1.5 H Sodium 135.6 L Creatinine 0.48 L Total Protein 5.9 L Urine Protein 100 H Urine Ketones TRACE H Urine Urobilinogen 4.0 H - EKG Interpretation by Me Additional EKG results interpreted by me: 06/13/18 05:00 EKG shows sinus rhythm at a rate of 83, normal axis, normal intervals, no ST segment elevations or inversions per my interpretation. (GILLIAN HOLT) Discharge <ERIC ROSE - Last Filed: 06/13/18 01:35> <GILLIAN HOLT - Last Filed: 06/13/18 06:48> - Discharge Clinical Impression: Generalized abdominal pain, Cough Fever Qualifiers: Fever type: unspecified Qualified Code(s): R50.9 - Fever, unspecified Condition: Stable Disposition: HOME, SELF-CARE Additional Instructions: I do not know exactly what is causing your fever. You could have a viral infection that is causing your cough or could be coming from something more serious. Today we did not find any sign of pneumonia, influenza, intra- abdominal infection or urinary tract infection. Blood cultures and urine cultures have been sent to the lab, we will call you if these grow out anything abnormal. Please drink plenty of fluids and keep track of your temperature. Please return to the emergency department should your pain worsen, should she start vomiting or should she develop any new or concerning symptoms. Please be rechecked by her primary care physician within the next 2-3 days. Referrals: TRU CORRAL MD [Primary Care Provider] - Follow up as needed Scribe Attestation: 06/13/18 06:48 I personally performed the services described in the documentation, reviewed and edited the documentation which was dictated to the scribe in my presence, and it accurately records my words and actions. (GILLIAN HOLT) Scribe Documentation - Scribe Written by Scribe:: Jj Rosado, 06/13/2018 [id number] acting as scribe for :: Judi <ERIC ROSE - Last Filed: 06/13/18 01:35>
[2018-06-13 02:28] LABS: ABSOLUTE LYMPHOCYTES (AUTO) 1.5 10^3/uL (0.5-4.7); ABSOLUTE MONOCYTES (AUTO) 1.5 10^3/uL (0.1-1.4); ABSOLUTE NEUT (AUTO) 8.8 10^3/uL (1.7-8.2); BASOPHILS % (AUTO) 0.2 % (0-2); EOSINOPHILS % (AUTO) 0.2 % (0-6); HEMATOCRIT 36.7 % (36.0-47.0); HEMOGLOBIN 12.2 g/dL (12.0-15.5); LYMPHOCYTES % (AUTO) 12.9 % (13-45); MEAN CORPUSCULAR HEMOGLOBIN 29.4 pg (27.0-33.4); MEAN CORPUSCULAR HGB CONC 33.2 g/dL (32.0-36.0); MEAN CORPUSCULAR VOLUME 89 fl (80-97); MONOCYTES % (AUTO) 12.9 % (3-13); PLATELET COUNT 178 10^3/uL (150-450); RED BLOOD COUNT 4.15 10^6/uL (3.72-5.28); RED CELL DISTRIBUTION WIDTH 16.2 % (11.5-14.0); SEGMENTED NEUTROPHILS % (AUTO) 73.8 % (42-78); TOTAL CELLS COUNTED % (AUTO) 100 %; WHITE BLOOD COUNT 11.9 10^3/uL (4.0-10.5)
[2018-06-13 02:31] LABS: APPEARANCE,URINE CLEAR; BILIRUBIN,URINE NEGATIVE (NEGATIVE); COLOR,URINE DARK YELLOW; GLUCOSE, URINE NEGATIVE (NEGATIVE); KETONES,URINE TRACE mg/dL (NEGATIVE); LEUKOCYTE ESTERASE,URINE NEGATIVE (NEGATIVE); NITRITE,URINE NEGATIVE (NEGATIVE); PROTEIN,URINE 100 mg/dL (NEGATIVE); URINE SPECIFIC GRAVITY 1.018
[2018-06-13 02:35] LABS: INTERNATIONAL RATION (INR) 1.01; PROTHROMBIN TIME 13.8 SEC (11.4-15.4)
[2018-06-13 02:48] LABS: ALANINE AMINOTRANSFERASE 26 U/L (9-52); ALBUMIN 3.5 g/dL (3.5-5.0); ALKALINE PHOSPHATASE 77 U/L (38-126); ANION GAP 12 (5-19); ASPARTATE AMINO TRANSFERASE 21 U/L (14-36); BILIRUBIN,DIRECT 0.3 mg/dL (0.0-0.4); BILIRUBIN,TOTAL 1.1 mg/dL (0.2-1.3); BLOOD UREA NITROGEN 8 mg/dL (7-20); CALCIUM 8.8 mg/dL (8.4-10.2); CARBON DIOXIDE 26 mmol/L (22-30); CHLORIDE 98 mmol/L (98-107); GLUCOSE 108 mg/dL (75-110); POTASSIUM 3.9 mmol/L (3.6-5.0); SODIUM 135.6 mmol/L (137-145); TOTAL PROTEIN 5.9 g/dL (6.3-8.2)
--- NOTE | 2018-06-13 03:28 | RADIOLOGY REPORT (SQ) ---
EXAM DESCRIPTION: XR CHEST 2 VIEWS COMPLETED DATE/TME: 06/13/2018 00:51 CLINICAL HISTORY: 88 years, Female, cough, fever COMPARISON: 05/17/2018 NUMBER OF VIEWS: Two TECHNIQUE: Two views of the chest LIMITATIONS: None. FINDINGS: The patient is rotated towards the left. The lungs are clear. The heart is at the upper limit of normal in size with a left chest wall pacemaker in place. There is no pneumothorax. Small pleural effusions may be present. There are changes of a right shoulder arthroplasty IMPRESSION: No acute cardiopulmonary abnormality 2010 [employer]- All Rights Reserved
--- NOTE | 2018-06-13 03:38 | RADIOLOGY REPORT (SQ) ---
EXAM DESCRIPTION: CT ABDOMEN PELVIS WITH IV CONTRAST COMPLETED DATE/TME: 06/13/2018 00:51 CLINICAL HISTORY: Left lower quadrant pain. COMPARISON: None Available. TECHNIQUE: CT of the abdomen and pelvis performed following IV administration of 100 mL of Omnipaque 350. DLP: 2076.34 mGycm FINDINGS: Lung Bases: Respiratory motion artifact with scarring or dependent atelectasis in the visualized lung bases. Pacemaker leads identified. Coronary artery atherosclerosis. 30 megaly. Bones: No destructive bone lesions identified. Degenerative change of the spine, sacroiliac joints, and hips. Abdomen: Liver: The liver has normal size and density. No intrahepatic mass or biliary dilatation. Gallbladder: Prior cholecystectomy. Spleen, Pancreas, and Adrenal Glands: The spleen, pancreas, and adrenal glands are unremarkable. Kidneys: The kidneys have normal size and contour without evidence of solid mass or hydronephrosis. Bosniak class I right renal cysts. Vasculature: Aortoiliac atherosclerosis. IVC is unremarkable. The portal vein is patent. The proximal visceral and renal arteries are patent. Stomach: Moderate hiatal hernia. Other: No free intraperitoneal air. No free fluid or lymphadenopathy. Pelvis: Bladder: Urinary bladder is unremarkable. Bowel: No dilated loops of large or small bowel. Appendix: Normal appendix. Pelvis: Uterus is not enlarged. Fat-containing left ventral hernia. IMPRESSION: 1. No acute inflammatory or obstructive process identified. 2. Moderate hiatal hernia. This exam was performed according to our departmental dose-optimization program, which includes automated exposure control, adjustment of the mA and/or kV according to patient size and/or use of iterative reconstruction technique.
[2018-06-13 04:10] LABS: VENOUS BLOOD BASE EXCESS -0.5 mmol/L; VENOUS BLOOD HCO3 24.3 mmol/L (20-32); VENOUS BLOOD PCO2 40.6 mmHg (35-63); VENOUS BLOOD PH 7.4 (7.30-7.42)
[2018-06-13 04:46] LABS: A TYPE INFLUENZA AG NEGATIVE (NEGATIVE); B INFLUENZA AG NEGATIVE (NEGATIVE)
[2018-06-13 06:14] VITALS: BP 134/57
--- NOTE | 2018-06-13 07:58 | EKG REPORT ---
SEVERITY:- ABNORMAL ECG - AFIB/FLUTTER AND VENTRICULAR-PACED RHYTHM : Confirmed by: Cong Rojas MD 13-Jun-2018 07:57:31
== END 2018-06-13 06:14 | disposition home or self-care (01) ==
LOC: ER 00:24
DX: R10.84 Generalized abdominal pain (principal); R05 Cough; R50.9 Fever, unspecified; K59.00 Constipation, unspecified; J02.9 Acute pharyngitis, unspecified; R09.81 Nasal congestion; D72.829 Elevated white blood cell count, unspecified; Z87.19 Personal history of other diseases of the digestive system; Z90.49 Acquired absence of other specified parts of digestive tract; Z98.890 Other specified postprocedural states; Z87.01 Personal history of pneumonia (recurrent); Z85.6 Personal history of leukemia
CPT/HCPCS: 93005; 99284; 96360; 36415; 87040; 87086; 85025; 85610; 82272; 80053; 81001; 82803; 83605; 87804; 71046; 74177; 93010; J7030

== ENCOUNTER 2018-06-13 18:21 | Inpatient (IN) | payer MEDICARE, OTHER ==
--- NOTE | 2018-06-13 18:46 | ER Document Report ---
ED GI/ - General Chief Complaint: Abdominal Pain Stated Complaint: ABDOMINAL PAIN Time Seen by Provider: 06/13/18 18:45 Mode of Arrival: Stretcher Information source: Patient, Relative, Emergency Med Personnel Notes: Patient complained of rectal pain and abdominal pain. He was seen in the emergency room earlier today and was discharged home. She will return to the emergency room saying that her pain is worse at this time. CT scan of abdomen and pelvis done earlier today was negative. TRAVEL OUTSIDE OF THE [place] IN LAST 30 DAYS: No - HPI Patient complains to provider of: Abdominal pain, Other - Rectal pain Onset: Yesterday Timing/Duration: Sudden, Constant Quality of pain: Sharp Severity at maximum: Severe Severity in ED: Moderate Pain Level: 3 Location: Rectal Vaginal bleeding (Compared to normal period): None OB ultrasound done: No vitamins taken: No Exacerbated by: Denies Relieved by: Denies Similar symptoms previously: Yes Recently seen / treated by doctor: Yes - Related Data Allergies/Adverse Reactions: Cephalosporins Allergy (Severe, Verified 05/17/18 18:40) Anaphylaxis lisinopril [From Zestril] Allergy (Severe, Verified 05/17/18 18:40) Hives bacitracin [From Neosporin] Allergy (Intermediate, Verified 05/17/18 18:40) Blisters gramicidin D [From Neosporin] Allergy (Intermediate, Verified 05/17/18 18:40) Blisters latex [Latex] Allergy (Intermediate, Verified 05/17/18 18:40) LATEX neomycin sulfate [From Neosporin] Allergy (Intermediate, Verified 05/17/18 18:40 ) Blisters polymyxin B [From Neosporin] Allergy (Intermediate, Verified 05/17/18 18:40) Blisters sulindac [Sulindac] Allergy (Unknown, Verified 05/17/18 18:40) flector patch Allergy (Intermediate, Uncoded 05/17/18 18:40) Blisters soaps Allergy (Intermediate, Uncoded 05/17/18 18:40) tape Allergy (Intermediate, Uncoded 05/17/18 18:40) Blisters Past Medical History - Social History Smoking Status: Unknown if Ever Smoked Family History: Reviewed & Not Pertinent - Past Medical History Cardiac Medical History: Reports: Hx Atrial Fibrillation, Hx Hypercholesterolemia, Hx Hypertension Denies: Hx Coronary Artery Disease, Hx Heart Attack Pulmonary Medical History: Reports: Hx Bronchitis, Hx Pneumonia Denies: Hx Asthma, Hx COPD Neurological Medical History: Denies: Hx Cerebrovascular Accident, Hx Seizures Endocrine Medical History: Denies: Hx Hypothyroidism Renal/ Medical History: Denies: Hx Peritoneal Dialysis Malignancy Medical History: Reports: Hx Leukemia - CLL GI Medical History: Reports: Hx Gastroesophageal Reflux Disease, Hx Irritable Bowel Musculoskeletal Medical History: Reports Hx Arthritis Past Surgical History: Reports: Hx Cholecystectomy, Hx Gynecologic Surgery - Uterine cyst removal, Hx Orthopedic Surgery - Bilateral knee replacement, and right shoulder surgery.. Denies: Hx Pacemaker - Immunizations Hx Diphtheria, Pertussis, Tetanus Vaccination: Yes Hx Pneumococcal Vaccination: 08/30/99 Review of Systems - Review of Systems Constitutional: No symptoms reported EENT: No symptoms reported Cardiovascular: No symptoms reported Respiratory: No symptoms reported Gastrointestinal: Abdominal pain, Other - Rectal pain Genitourinary: No symptoms reported Female Genitourinary: No symptoms reported Musculoskeletal: No symptoms reported Skin: No symptoms reported Hematologic/Lymphatic: No symptoms reported Neurological/Psychological: No symptoms reported -: Yes All other systems reviewed and negative Physical Exam - Vital signs Vitals: Temp Pulse Resp BP Pulse Ox 97.6 F 69 22 H 132/60 H 100 06/13/18 18:47 06/13/18 18:47 06/13/18 18:47 06/13/18 18:47 06/13/18 18:47 Interpretation: Normal - General General appearance: Appears well, Alert - HEENT Head: Normocephalic, Atraumatic Eyes: Normal Pupils: PERRL - Respiratory Respiratory status: No respiratory distress Chest status: Nontender Breath sounds: Normal Chest palpation: Normal - Cardiovascular Rhythm: Regular Heart sounds: Normal auscultation Murmur: No - Abdominal Inspection: Normal Distension: No distension Bowel sounds: Normal Tenderness: Tender - LLQ tenderness to palpation. Organomegaly: No organomegaly - Rectal Notes: Diffuse redness and swelling of the anus. Digital rectal exam was not done for patient comfort. Patient cannot tolerate a digital rectal exam at this time since she is in severe pain. Patient is in discomfort secondary to the anal/ rectal pain. The redness and swelling is consistent with infection/ inflammation. Medical Office Receptionist was Ms. Lin RN. - Back Back: Normal, Nontender - Extremities General upper extremity: Normal inspection, Nontender, Normal color, Normal ROM , Normal temperature General lower extremity: Normal inspection, Nontender, Normal color, Normal ROM , Normal temperature, Normal weight bearing. No: Emmanuel's sign - Neurological Neuro grossly intact: Yes Cognition: Normal Orientation: AAOx4 Kerri Coma Scale Eye Opening: Spontaneous Kerri Coma Scale Verbal: Oriented Kerri Coma Scale Motor: Obeys Commands Kerri Coma Scale Total: 15 Speech: Normal Motor strength normal: LUE, RUE, LLE, RLE Sensory: Normal - Psychological Associated symptoms: Normal affect, Normal mood - Skin Skin Temperature: Warm Skin Moisture: Dry Skin Color: Normal Course - Vital Signs Vital signs: Temp Pulse Resp BP Pulse Ox 100.8 F H 70 19 147/48 H 100 06/14/18 03:20 06/14/18 03:20 06/14/18 03:20 06/14/18 03:20 06/14/18 03:20 - Laboratory Result Diagrams: 06/13/18 21:13 06/13/18 21:13 Laboratory results interpreted by me: 06/13/18 06/13/18 06/13/18 21:13 21:13 22:57 WBC 15.3 H Hgb 11.3 L Hct 33.3 L RDW 16.2 H Band Neutrophils % 7 H Abs Neuts (Manual) 12.2 H Sodium 131.3 L Creatinine 0.43 L Total Bilirubin 1.4 H Direct Bilirubin 0.6 H Total Protein 5.4 L Albumin 3.1 L Urine Protein 100 H Urine Urobilinogen 2.0 H - Diagnostic Test Radiology reviewed: Image reviewed, Reports reviewed - Transfer of Care Care transferred to following provider: Patient to be admitted by Dr. Ricci Johnson the hospitalist windows consultant. Notes: 06/14/18 05:02 Proctitis. Abdominal pain. Discharge - Discharge Clinical Impression: Proctalgia, Proctitis Abdominal pain Qualifiers: Abdominal location: left lower quadrant Qualified Code(s): R10.32 - Left lower quadrant pain Condition: Stable Disposition: ADMITTED INPATIENT Admitting Provider: Dr Ricci Johnson Unit Admitted: Telemetry
--- NOTE | 2018-06-13 19:50 | RADIOLOGY REPORT (SQ) ---
EXAM DESCRIPTION: ACUTE ABDOMEN SERIES COMPLETED DATE/TIME: 06/13/2018 7:36 pm REASON FOR STUDY: bed 21 abd pain COMPARISON: None. NUMBER OF VIEWS: Three views. TECHNIQUE: Frontal chest, supine abdomen and upright/decubitus abdomen radiographic images acquired. LIMITATIONS: None. FINDINGS: CHEST: Lungs clear of infiltrates. FREE AIR: None. No abnormal gas collections. BOWEL GAS PATTERN: Nonobstructive pattern. There is some large and small bowel gas. CALCIFICATIONS: No suspicious calcifications. HARDWARE: None in the abdomen. SOFT TISSUES: Urinary bladder is filled with contrast and is somewhat distended. BONES: No acute findings. Scoliosis, degenerative disc disease, and spondylosis. OTHER: No other significant finding. IMPRESSION: Nonspecific abdomen. Possible ileus. Distended urinary bladder. Osseous findings as d escribed. TECHNICAL DOCUMENTATION: JOB ID: [id number] [employer]- All Rights Reserved Reading location - IP/workstation name: [email or web address]
[2018-06-13] MEDS ORDERED: METRONIDAZOLE 500 MG/NS RTU 500 MG/100 ML RTUPB IV ONE (20:05)
[2018-06-13] MEDS ORDERED: LEVOFLOXACIN 750 MG/D5W RTU 750 MG/150 ML RTUPB IV ONE (20:05)
[2018-06-13] MEDS ORDERED: MORPHINE SULFATE 10 MG/ML INJ IV ONE (20:41)
[2018-06-13] MEDS ORDERED: ONDANSETRON HCL INJ/PF 4 MG/2 ML SDV IV ONE (20:43)
[2018-06-13 21:31] LABS: HEMATOCRIT 33.3 % (36.0-47.0); HEMOGLOBIN 11.3 g/dL (12.0-15.5); MEAN CORPUSCULAR HEMOGLOBIN 29.9 pg (27.0-33.4); MEAN CORPUSCULAR HGB CONC 33.9 g/dL (32.0-36.0); MEAN CORPUSCULAR VOLUME 88 fl (80-97); PLATELET COUNT 172 10^3/uL (150-450); RED BLOOD COUNT 3.79 10^6/uL (3.72-5.28); RED CELL DISTRIBUTION WIDTH 16.2 % (11.5-14.0); WHITE BLOOD COUNT 15.3 10^3/uL (4.0-10.5)
[2018-06-13 21:33] LABS: INTERNATIONAL RATION (INR) 1.11; PROTHROMBIN TIME 14.9 SEC (11.4-15.4)
[2018-06-13 21:36] LABS: PARTIAL THROMBOPLASTIN TIME 35.8 SEC (23.5-35.8)
[2018-06-13 21:46] LABS: ALANINE AMINOTRANSFERASE 28 U/L (9-52); ALBUMIN 3.1 g/dL (3.5-5.0); ALKALINE PHOSPHATASE 77 U/L (38-126); ANION GAP 11 (5-19); ASPARTATE AMINO TRANSFERASE 29 U/L (14-36); BILIRUBIN,DIRECT 0.6 mg/dL (0.0-0.4); BILIRUBIN,TOTAL 1.4 mg/dL (0.2-1.3); BLOOD UREA NITROGEN 11 mg/dL (7-20); CALCIUM 8.8 mg/dL (8.4-10.2); CARBON DIOXIDE 22 mmol/L (22-30); CHLORIDE 98 mmol/L (98-107); GLUCOSE 101 mg/dL (75-110); LIPASE 98.7 U/L (23-300); POTASSIUM 4.2 mmol/L (3.6-5.0); SODIUM 131.3 mmol/L (137-145); TOTAL PROTEIN 5.4 g/dL (6.3-8.2)
[2018-06-13 22:03] LABS: ABSOLUTE LYMPHOCYTES# (MANUAL) 2.1 10^3/uL (0.5-4.7); ABSOLUTE MONOCYTES # (MANUAL) 0.9 10^3/uL (0.1-1.4); ABSOLUTE NEUTROPHILS# (MANUAL) 12.2 10^3/uL (1.7-8.2); BAND NEUTROPHILS % (MANUAL) 7 % (3-5); BASOPHILS % (MANUAL) 0 % (0-2); EOSINOPHILS % (MANUAL) 0 % (0-6); LYMPHOCYTES % (MANUAL) 14 % (13-45); MONOCYTES % (MANUAL) 6 % (3-13); OVALOCYTES SLIGHT; POIKILOCYTOSIS SLIGHT; SEGMENTED NEUTROPHILS % (MAN) 73 % (42-78); TOTAL CELLS COUNTED 100
[2018-06-13 22:04] LABS: ANISOCYTOSIS 1+; PLATELET COMMENT ADEQUATE
[2018-06-13 23:23] LABS: APPEARANCE,URINE CLEAR; BILIRUBIN,URINE NEGATIVE (NEGATIVE); COLOR,URINE YELLOW; GLUCOSE, URINE NEGATIVE (NEGATIVE); KETONES,URINE NEGATIVE (NEGATIVE); LEUKOCYTE ESTERASE,URINE NEGATIVE (NEGATIVE); NITRITE,URINE NEGATIVE (NEGATIVE); PROTEIN,URINE 100 mg/dL (NEGATIVE); URINE SPECIFIC GRAVITY 1.043
[2018-06-13] MEDS ORDERED: PHARMACY COMMUNICATION ORDER MC NR (23:45)
[2018-06-14] MEDS ORDERED: HYDRALAZINE HCL INJ/PF 20 MG/1 ML SDV IV PRN (00:33)
[2018-06-14] MEDS ORDERED: ONDANSETRON HCL INJ/PF 4 MG/2 ML SDV IV PRN (00:34)
[2018-06-14] MEDS ORDERED: DEXTROSE 40% GEL 15 GM TUBE PO PRN ×2 (00:43)
[2018-06-14] MEDS ORDERED: DEXTROSE 50%-WATER 25 GM/50 ML DISP.SYRIN IV PRN ×2 (00:43)
[2018-06-14] MEDS ORDERED: GLUCAGON,HUMAN RECOMB 1 MG INJ SUBCUT PRN (00:43)
--- NOTE | 2018-06-14 02:49 | RADIOLOGY REPORT (SQ) ---
EXAM DESCRIPTION: CT ABDOMEN PELVIS WITHOUT IV CONTRAST COMPLETED DATE/TME: 06/14/2018 00:00 CLINICAL HISTORY: Diffuse abdominal pain COMPARISON: 06/13/2018 TECHNIQUE: CT of the abdomen and pelvis without IV contrast. Evaluation of the solid organs and vasculature is suboptimal due to lack of IV contrast. Oral contrast administered. Motion artifact. DLP: 1431.14 mGy-cm FINDINGS: Lung Bases: Mild bilateral dependent atelectasis or scarring. Coronary artery atherosclerosis. Pacemaker leads visualized. Bones: Degenerative change of the spine, sacroiliac joints, and hips. Abdomen: Liver: The liver has normal size and density. Gallbladder: Prior cholecystectomy. Spleen, Pancreas, and Adrenal Glands: The spleen, pancreas, and adrenal glands are unremarkable. Kidneys: The kidneys have normal size and contour without evidence of hydronephrosis. No obstructing ureteral calculi. Right renal cyst. Vasculature: Aortoiliac atherosclerosis. IVC is unremarkable. Stomach: Moderate hiatal hernia. Other: No free intraperitoneal air. No free fluid or lymphadenopathy. Pelvis: Bladder: Walton catheter in the urinary bladder. Bowel: No dilated loops of small and large bowel. Oral contrast identified within the stomach and small bowel. The administered oral contrast has not progressed in the colon at this time. Appendix: Normal appendix. Pelvis: Uterus is not enlarged. Fat-containing left ventral hernia. IMPRESSION: 1. No dilated loops of the visualized large or small bowel. Oral contrast has not progressed colon. Continued radiographic follow-up may be helpful to confirm progression of contrast to the colon. This exam was performed according to our departmental dose-optimization program, which includes automated exposure control, adjustment of the mA and/or kV according to patient size and/or use of iterative reconstruction technique.
[2018-06-14] MEDS: NORMAL SALINE 1000 ML 1,000 ML IV PRN ×2 (04:56→11:47)
[2018-06-14] MEDS: METRONIDAZOLE 500 MG/NS RTU 500 MG/100 ML RTUPB IV SCH ×4 (05:19→23:20)
[2018-06-14] MEDS: KETOROLAC TROMETHAMINE INJ/PF 30 MG/1 ML SDV IV PRN ×2 (05:19→17:16)
[2018-06-14] MEDS: HEPARIN SOD (PORCINE) 5,000 UNIT/ML 1 ML SYRINGE SUBCUT SCH ×3 (05:21→23:21)
--- NOTE | 2018-06-14 06:54 | PDOC H&P ---
History of Present Illness Admission Date/PCP: 06/14/18 00:17 TRU [facility]RAL Patient complains of: Abdominal pain History of Present Illness: KHUSHI BARTLETT is a 88 year old female assisted living resident, with a past medical history of dementia, atrial fibrillation, hypertension, obesity, diabetes and chronic constipation. Patient presents 12 hours after evaluation in the emergency room for the same, with an unremarkable workup tolerating p.o. she was discharged home with instructions to follow-up with primary care. Symptoms have persisted and in the emergency room she is found to have fever, leukocytosis, abdominal pain and proctitis. She started on empiric antibiotics of Levaquin and Flagyl and referred to the hospitalist for admission. 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 Denies: Pacemaker Social History Information Source: Relative, [facility] Records Lives with: Other - Assisted living Smoking Status: Unknown if Ever Smoked Frequency of Alcohol Use: None Hx Recreational Drug Use: No Drugs: None Hx Prescription Drug Abuse: No - Advance Directive Resuscitation Status: Full Code Family History Family History: Hypertension Parental Family History Reviewed: Yes Children Family History Reviewed: Yes Sibling(s) Family History Reviewed.: Yes Medication/Allergy Home Medications: Acetaminophen [Tylenol 325 mg Tablet] 650 mg PO Q4HP PRN tablet 04/01/18 Buspirone HCl [Buspar 10 mg Tablet] 5 mg PO QAM 30 Days #30 tablet 04/01/18 Buspirone HCl [Buspar 10 mg Tablet] 10 mg PO QHS 30 Days #30 tablet 04/01/18 Divalproex Sodium 250 mg PO DAILY #30 tablet. 04/01/18 Ipratropium/Albuterol Sulfate [Duoneb 3 ml Ampul] 3 ml NEB RTQ8HP PRN vial.neb 04/01/18 Lansoprazole [Prevacid 30 mg Odt Tablet] 30 mg PO Q6AM tab.rap.dr 04/01/18 Metoprolol Tartrate [Lopressor 50 mg Tablet] 50 mg PO Q12 tablet 04/01/18 Nystatin [Mycostatin Ointment 15 gm] 1 applic TP BID tube 04/01/18 Oxycodone HCl/Acetaminophen [Oxycodone-Acetaminophen 10-325] 1 tab PO Q4 #30 tablet 04/01/18 Polyethylene Glycol 3350 [Miralax Powder 17 gm/Packet] 17 gm PO DAILY powd.pack 04/01/18 Furosemide [Lasix 20 mg Tablet] 20 mg PO QAM #30 tablet 05/17/18 Potassium Chloride 20 meq PO BID #60 tab.er.prt 05/17/18 Allergies/Adverse Reactions: Cephalosporins Allergy (Severe, Verified 05/17/18 18:40) Anaphylaxis lisinopril [From Zestril] Allergy (Severe, Verified 05/17/18 18:40) Hives bacitracin [From Neosporin] Allergy (Intermediate, Verified 05/17/18 18:40) Blisters gramicidin D [From Neosporin] Allergy (Intermediate, Verified 05/17/18 18:40) Blisters latex [Latex] Allergy (Intermediate, Verified 05/17/18 18:40) LATEX neomycin sulfate [From Neosporin] Allergy (Intermediate, Verified 05/17/18 18:40 ) Blisters polymyxin B [From Neosporin] Allergy (Intermediate, Verified 05/17/18 18:40) Blisters sulindac [Sulindac] Allergy (Unknown, Verified 05/17/18 18:40) flector patch Allergy (Intermediate, Uncoded 05/17/18 18:40) Blisters soaps Allergy (Intermediate, Uncoded 05/17/18 18:40) tape Allergy (Intermediate, Uncoded 05/17/18 18:40) Blisters Review of Systems ROS unobtainable: Due to mental status Physical Exam Vital Signs: Temp Pulse Resp BP Pulse Ox 100.3 F 71 21 H 110/47 L 97 06/14/18 05:06 06/14/18 05:06 06/14/18 05:06 06/14/18 05:06 06/14/18 05:06 Intake & Output 06/12/18 06/13/18 06/14/18 11:59 11:59 11:59 Intake Total 227 Output Total 1000 Balance -773 Weight 94.5 kg General appearance: PRESENT: cooperative, hard of hearing, mild distress, obese Head exam: PRESENT: atraumatic, normocephalic Eye exam: PRESENT: conjunctiva pink, EOMI, PERRLA. ABSENT: scleral icterus Ear exam: PRESENT: normal external ear exam Mouth exam: PRESENT: moist, tongue midline Neck exam: ABSENT: carotid bruit, JVD, lymphadenopathy, thyromegaly Respiratory exam: PRESENT: clear to auscultation carmela. ABSENT: rales, rhonchi, wheezes Cardiovascular exam: PRESENT: RRR. ABSENT: diastolic murmur, rubs, systolic murmur Pulses: PRESENT: normal dorsalis pedis pul GI/Abdominal exam: PRESENT: diminished bowel sounds, hypoactive bowel sounds, tenderness. ABSENT: ascites, distended, firm, guarding Rectal exam: PRESENT: fecal impaction, hemorrhoids, other - Edematous, tender and painful anus, non-prolapsed rectum. ABSENT: normal inspection, normal rectal tone Extremities exam: PRESENT: +1 edema Neurological exam: PRESENT: alert, awake, oriented to person, CN II-XII grossly intact. ABSENT: motor sensory deficit Psychiatric exam: PRESENT: appropriate affect, normal mood. ABSENT: homicidal ideation, suicidal ideation Skin exam: PRESENT: dry, intact, warm. ABSENT: cyanosis, rash Results Impressions: Acute Abdomen Series 06/13/18 00:00 IMPRESSION: Nonspecific abdomen. Possible ileus. Distended urinary bladder. Osseous findings as described. Abdomen/Pelvis CT 06/14/18 00:00 IMPRESSION: 1. No dilated loops of the visualized large or small bowel. Oral contrast has not progressed colon. Continued radiographic follow-up may be helpful to confirm progression of contrast to the colon. This exam was performed according to our departmental dose-optimization program, which includes automated exposure control, adjustment of the mA and/or kV according to patient size and/or use of iterative reconstruction technique. Assessment & Plan - Diagnosis (1) Proctitis Is this a current diagnosis for this admission?: Yes Plan: Empiric antibiotics, Symptomatic management, follow-up GI consult and CT abdomen pelvis. (2) Constipation Is this a current diagnosis for this admission?: Yes Plan: Chronic the complicating #1, GI consult (3) Abdominal pain Qualifiers: Abdominal location: left lower quadrant Qualified Code(s): R10.32 - Left lower quadrant pain Is this a current diagnosis for this admission?: Yes Plan: Secondary to #1, symptomatic management (4) Proctalgia Is this a current diagnosis for this admission?: Yes Plan: GI consult. - Time Time Spent: 50 to 70 Minutes - Inpatient Certification Medical Necessity: Need Close Monitoring Due to Risk of Patient Decompensation
--- NOTE | 2018-06-14 07:05 | RADIOLOGY REPORT (SQ) ---
EXAM DESCRIPTION: X-ray abdomen 1 view CLINICAL DATA: 88-year-old female who presents for placement of nasogastric tube. TECHNICAL DATA: A single AP supine x-ray of the abdomen was performed. Comparison: CT abdomen and pelvis performed on the same day.. FINDINGS: The bowel gas pattern is nonspecific and nonobstructive. There are surgical clips in the right upper quadrant. Occasional vascular calcifications are noted. No abnormal air collections are identified. No focal soft tissue abnormalities are seen. There is mild scoliosis of the lumbar spine convex to the left and there are degenerative changes of the lumbar spine and visualized thoracic spine. A right shoulder arthroplasty is noted. There are advanced arthritic changes of the left glenohumeral joint. A bipolar left subclavian transvenous pacemaker is present. The tip of the feeding tube extends below the diaphragm and terminates in the left upper quadrant likely within the region of the proximal stomach. The patient has a known moderate hiatal hernia. IMPRESSION: 1. The tip of the feeding tube terminates in the left upper quadrant likely within the proximal stomach. The patient has a known moderate hiatal hernia. 2. Nonspecific nonobstructive bowel gas pattern. 3. Other incidental findings as described above.
[2018-06-14 07:44] LABS: HEMOGLOBIN 10.1 g/dL (12.0-15.5); MEAN CORPUSCULAR HEMOGLOBIN 29.6 pg (27.0-33.4); MEAN CORPUSCULAR HGB CONC 33.5 g/dL (32.0-36.0); MEAN CORPUSCULAR VOLUME 88 fl (80-97); PLATELET COUNT 150 10^3/uL (150-450); RED BLOOD COUNT 3.39 10^6/uL (3.72-5.28); RED CELL DISTRIBUTION WIDTH 16.3 % (11.5-14.0); WHITE BLOOD COUNT 11.7 10^3/uL (4.0-10.5)
[2018-06-14 08:08] LABS: ANION GAP 9 (5-19); BLOOD UREA NITROGEN 14 mg/dL (7-20); CARBON DIOXIDE 24 mmol/L (22-30); CHLORIDE 97 mmol/L (98-107); GLUCOSE 86 mg/dL (75-110); POTASSIUM 4.1 mmol/L (3.6-5.0); SODIUM 130.2 mmol/L (137-145)
[2018-06-14 08:18] LABS: ABSOLUTE MONOCYTES # (MANUAL) 1.3 10^3/uL (0.1-1.4); ABSOLUTE NEUTROPHILS# (MANUAL) 8.4 10^3/uL (1.7-8.2); ANISOCYTOSIS SLIGHT; BAND NEUTROPHILS % (MANUAL) 5 % (3-5); BASOPHILS % (MANUAL) 0 % (0-2); EOSINOPHILS % (MANUAL) 0 % (0-6); HYPOCHROMASIA 1+; LYMPHOCYTES % (MANUAL) 17 % (13-45); MONOCYTES % (MANUAL) 11 % (3-13); OVALOCYTES SLIGHT; PLATELET COMMENT ADEQUATE; POIKILOCYTOSIS SLIGHT; POLYCHROMASIA SLIGHT; SEGMENTED NEUTROPHILS % (MAN) 67 % (42-78); TOTAL CELLS COUNTED 100; TOXIC GRANULATION SLIGHT
--- NOTE | 2018-06-14 10:23 | PDOC CONSULTATION ---
Consultation Consult Date: 06/14/18 Attending physician:: JIMI LEZAMA Consult reason:: chronic constipation History of Present Illness Admission Date/PCP: 06/14/18 00:17 TRU [facility]RAL History of Present Illness: KHUSHI BARTLETT is a 88 year old female patient has been admitted to the Hospitalist service has present to the ED about 6x in the past month has been given a variety of diagnosis she had 2 CT scans on consecutive days, there is the apparent diagnosis of proctitis however that is a pathological diagnosis there is no mention in either of the CT scan reports over the past 2 days of even having thickening in the rectum and there has been no evaluation with scope, there has no corroboration of the diagnosis patient however does have chronic constipation she has a variety of other medical problems there is no reported blood in her stools on any of her ED visits patient does have mild anemia she likely has abdominal pain based on her constipation Past Medical History Cardiac Medical History: Reports: Atrial Fibrillation, Hyperlipidema, Hypertension Denies: Coronary Artery Disease, Myocardial Infarction Pulmonary Medical History: Reports: Bronchitis, Pneumonia Denies: Asthma, Chronic Obstructive Pulmonary Disease (COPD) Neurological Medical History: Denies: Seizures Endocrine Medical History: Denies: Hypothyroidism Malignancy Medical History: 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 Denies: Pacemaker Social History Lives with: Other - Assisted living Smoking Status: Unknown if Ever Smoked Frequency of Alcohol Use: None Hx Recreational Drug Use: No Drugs: None Hx Prescription Drug Abuse: No - Advance Directive Resuscitation Status: Full Code Family History Family History: Hypertension Parental Family History Reviewed: Yes Children Family History Reviewed: Unknown Sibling(s) Family History Reviewed.: Unknown Medication/Allergy Allergies/Adverse Reactions: Cephalosporins Allergy (Severe, Verified 05/17/18 18:40) Anaphylaxis lisinopril [From Zestril] Allergy (Severe, Verified 05/17/18 18:40) Hives bacitracin [From Neosporin] Allergy (Intermediate, Verified 05/17/18 18:40) Blisters gramicidin D [From Neosporin] Allergy (Intermediate, Verified 05/17/18 18:40) Blisters latex [Latex] Allergy (Intermediate, Verified 09/18/18 18:40) LATEX neomycin sulfate [From Neosporin] Allergy (Intermediate, Verified 05/17/18 18:40 ) Blisters polymyxin B [From Neosporin] Allergy (Intermediate, Verified 05/17/18 18:40) Blisters sulindac [Sulindac] Allergy (Unknown, Verified 05/17/18 18:40) flector patch Allergy (Intermediate, Uncoded 05/17/18 18:40) Blisters soaps Allergy (Intermediate, Uncoded 05/17/18 18:40) tape Allergy (Intermediate, Uncoded 05/17/18 18:40) Blisters Review of Systems Constitutional: ABSENT: fever(s), headache(s), night sweats Eyes: ABSENT: visual disturbances Cardiovascular: ABSENT: orthropnea Respiratory: ABSENT: dyspnea, hemoptysis Gastrointestinal: ABSENT: dysphagia, hematochezia, melena Genitourinary: ABSENT: dysuria, hematuria Neurological: ABSENT: syncope, tingling, tremor(s) Endocrine: ABSENT: polydipsia, polyphagia, polyuria Hematologic/Lymphatic: ABSENT: easy bruising Physical Exam Vital Signs: Temp Pulse Resp BP Pulse Ox 100.3 F 70 21 H 110/47 L 97 06/14/18 05:06 06/14/18 07:00 06/14/18 05:06 06/14/18 05:06 06/14/18 05:06 Intake & Output 06/13/18 06/14/18 06/15/18 06:59 06:59 06:59 Intake Total 327 Output Total 1050 Balance -723 Weight 94.5 kg General appearance: PRESENT: well-developed, well-nourished Head exam: PRESENT: atraumatic, normocephalic Eye exam: PRESENT: EOMI, PERRLA. ABSENT: periorbital swelling Mouth exam: PRESENT: moist, neck supple Throat exam: ABSENT: tonsillar exudate, tonsillogmegaly Respiratory exam: PRESENT: symmetrical, unlabored. ABSENT: tachypnea, wheezes Cardiovascular exam: PRESENT: irregular rhythm, RRR, +S1, +S2 GI/Abdominal exam: PRESENT: soft. ABSENT: rebound, rigid, tenderness Extremities exam: ABSENT: joint swelling Neurological exam: PRESENT: oriented to situation, CN II-XII grossly intact Skin exam: PRESENT: petechiae. ABSENT: mottled, pallor, urticaria Results Laboratory Results: 06/14/18 07:20 06/14/18 07:20 06/14/18 06/14/18 07:20 07:20 WBC 11.7 H RBC 3.39 L Hgb 10.1 L Hct 30.0 L MCV 88 MCH 29.6 MCHC 33.5 RDW 16.3 H Plt Count 150 Seg Neutrophils % Not Reportable Lymphocytes % Not Reportable Monocytes % Not Reportable Eosinophils % Not Reportable Basophils % Not Reportable Absolute Neutrophils Not Reportable Absolute Lymphocytes Not Reportable Absolute Monocytes Not Reportable Absolute Eosinophils Not Reportable Absolute Basophils Not Reportable Sodium 130.2 L Potassium 4.1 Chloride 97 L Carbon Dioxide 24 Anion Gap 9 BUN 14 Creatinine 0.50 L Est GFR ( Amer) > 60 Est GFR (Non-Af Amer) > 60 Glucose 86 Calcium 8.0 L Impressions: Acute Abdomen Series 06/13/18 00:00 IMPRESSION: Nonspecific abdomen. Possible ileus. Distended urinary bladder. Osseous findings as described. KUB X-Ray 06/13/18 23:52 IMPRESSION: 1. The tip of the feeding tube terminates in the left upper quadrant likely within the proximal stomach. The patient has a known moderate hiatal hernia. 2. Nonspecific nonobstructive bowel gas pattern. 3. Other incidental findings as described above. Abdomen/Pelvis CT 06/14/18 00:00 IMPRESSION: 1. No dilated loops of the visualized large or small bowel. Oral contrast has not progressed colon. Continued radiographic follow-up may be helpful to confirm progression of contrast to the colon. This exam was performed according to our departmental dose-optimization program, which includes automated exposure control, adjustment of the mA and/or kV according to patient size and/or use of iterative reconstruction technique. Assessment & Plan - Diagnosis (1) Abdominal pain Qualifiers: Abdominal location: left lower quadrant Qualified Code(s): R10.32 - Left lower quadrant pain Is this a current diagnosis for this admission?: Yes Plan: CT scan on 2 consecutive days does not show any thickening of the bowel or rectum to suggest a colitis/ proctitis non specific, would make sure no other etiology chronic UTI etc (2) Constipation Is this a current diagnosis for this admission?: Yes Plan: may have abdominal distension ? possible symptoms based on intestinal distension possibly an ileus based on her most recent x ray maximize electrolytes distended urinary bladder also noted, ? possible stool impaction conservative therapy would defer on any invasive procedure for now unless there are other symptoms - Time Time Spent: 50 to 70 Minutes
[2018-06-14] MEDS ORDERED: BISACODYL 10 MG SUPP.RECT PR ONE (16:45)
[2018-06-14] MEDS: DOCUSATE SODIUM 100 MG CAPSULE PO SCH (17:15)
--- NOTE | 2018-06-14 17:15 | RADIOLOGY REPORT (SQ) ---
EXAM DESCRIPTION: CT ABD/PELVIS NO ORAL OR IV COMPLETED DATE/TIME: 06/14/2018 4:58 pm REASON FOR STUDY: Follow-up CT for oral contrast. COMPARISON: CT abdomen pelvis, 06/14/[address] abdomen pelvis 06/13/2018 TECHNIQUE: CT scan of the abdomen and pelvis performed without intravenous or oral contrast. Images reviewed with lung, soft tissue, and bone windows. Reconstructed coronal and sagittal MPR images revi ewed. All images stored on PACS. All CT scanners at this facility use dose modulation, iterative reconstruction, and/or weight based d osing when appropriate to reduce radiation dose to as low as reasonably achievable (ALARA). [facility]: Dose Right [facility]: CareDose [facility]: Dose Right [facility]: Teradose 4D [facility]: Smart Mem[employer] RADIATION DOSE: CT Rad equipment meets quality standard of care and radiation dose reduction techniq ues were employed. CTDIvol: 19.0 mGy. DLP: 1015 mGy-cm.mGy. LIMITATIONS: None. FINDINGS: LOWER CHEST: Large retrocardiac hiatal hernia containing the nasogastric tube tip. No bas ilar infiltrates. Mild cardiomegaly, pacemaker, aortic valve calcification. Moderate coronary arter y calcification NON-CONTRASTED LIVER, SPLEEN, ADRENALS: Evaluation limited by lack of IV contrast. No identified sign ificant masses. PANCREAS: No masses. No peripancreatic inflammatory changes. GALLBLADDER: Surgically absent RIGHT KIDNEY AND URETER: No suspicious masses. Assessment limited by lack of IV contrast. 3.4 cm rig ht midpole renal cortical cyst No significant calcifications. No hydronephrosis or hydroureter. LEFT KIDNEY AND URETER: No suspicious masses. Assessment limited by lack of IV contrast. No signifi cant calcifications. No hydronephrosis or hydroureter. AORTA AND RETROPERITONEUM: No aneurysm. No retroperitoneal masses or adenopathy. BOWEL AND PERITONEAL CAVITY: The oral contrast given for CT exam at 0200 hours is now seen in the col on in a nonobstructive pattern. APPENDIX: Normal. PELVIS, BLADDER, AND ABDOMINAL WALL:No abnormal masses. No free fluid. Bladder drained by a [place] cat heter. Postmenopausal female pelvic organs BONES: Diffuse degenerative disc changes lumbar spine OTHER: No other significant finding. IMPRESSION: Oral contrast given for CT at 0200 hours 06/14/2018 is now seen in the colon, in a nonob structive pattern. COMMENT: Quality ID # [id number]: Final reports with documentation of one or more dose reduction techniques (e.g., Automated exposure control, adjustment of the mA and/or kV according to patient size, use of iterative reconstruction technique) TECHNICAL DOCUMENTATION: JOB ID: [id number] [employer]- All Rights Reserved Reading location - IP/workstation name: [email or web address] [id number]
[2018-06-14] MEDS: LANSOPRAZOLE 30 MG TAB.RAP.DR PO SCH (20:00)
[2018-06-14] MEDS ORDERED: LEVOFLOXACIN 750 MG/D5W RTU 750 MG/150 ML RTUPB IV SCH (22:00)
[2018-06-15] MEDS: IPRATROPIUM/ALBUTEROL 0.5-2.5 MG/3 ML AMPUL NEB PRN ×2 (03:22→16:28)
[2018-06-15] MEDS: METRONIDAZOLE 500 MG/NS RTU 500 MG/100 ML RTUPB IV SCH ×3 (05:21→18:05)
[2018-06-15] MEDS: HEPARIN SOD (PORCINE) 5,000 UNIT/ML 1 ML SYRINGE SUBCUT SCH ×3 (05:23→22:27)
[2018-06-15] MEDS: LANSOPRAZOLE 30 MG TAB.RAP.DR PO SCH ×2 (05:24→18:05)
[2018-06-15 05:27] LABS: ABSOLUTE LYMPHOCYTES (AUTO) 1.4 10^3/uL (0.5-4.7); ABSOLUTE NEUT (AUTO) 10.8 10^3/uL (1.7-8.2); BASOPHILS % (AUTO) 0.2 % (0-2); EOSINOPHILS % (AUTO) 0.2 % (0-6); LYMPHOCYTES % (AUTO) 10.8 % (13-45); MEAN CORPUSCULAR HEMOGLOBIN 29.4 pg (27.0-33.4); MEAN CORPUSCULAR HGB CONC 33.2 g/dL (32.0-36.0); MEAN CORPUSCULAR VOLUME 88 fl (80-97); MONOCYTES % (AUTO) 7.8 % (3-13); PLATELET COUNT 146 10^3/uL (150-450); RED BLOOD COUNT 3.74 10^6/uL (3.72-5.28); RED CELL DISTRIBUTION WIDTH 16.5 % (11.5-14.0); TOTAL CELLS COUNTED % (AUTO) 100 %; WHITE BLOOD COUNT 13.3 10^3/uL (4.0-10.5)
[2018-06-15 05:59] LABS: ALANINE AMINOTRANSFERASE 35 U/L (9-52); ALBUMIN 2.6 g/dL (3.5-5.0); ALKALINE PHOSPHATASE 79 U/L (38-126); ANION GAP 9 (5-19); ASPARTATE AMINO TRANSFERASE 33 U/L (14-36); BILIRUBIN,DIRECT 0.6 mg/dL (0.0-0.4); BLOOD UREA NITROGEN 18 mg/dL (7-20); CALCIUM 8.4 mg/dL (8.4-10.2); CARBON DIOXIDE 22 mmol/L (22-30); CHLORIDE 100 mmol/L (98-107); GLUCOSE 102 mg/dL (75-110); POTASSIUM 4.1 mmol/L (3.6-5.0); SODIUM 131.3 mmol/L (137-145); TOTAL PROTEIN 4.8 g/dL (6.3-8.2)
[2018-06-15 06:54] LABS: ARTERIAL BLOOD BASE EXCESS -0.8 mmol/L; ARTERIAL BLOOD H2CO3 0.86 mmol/L (1.05-1.35); ARTERIAL BLOOD HCO3 21.4 mmol/L (20-24); ARTERIAL BLOOD O2 SATURATION 97.6 % (94-98); ARTERIAL BLOOD PCO2 28.5 mmHg (35-45); ARTERIAL BLOOD PH 7.49 (7.35-7.45); ARTERIAL BLOOD PO2 90.6 mmHg (80-100); ARTERIAL BLOOD TOTAL CO2 22.3 mmol/L (21-25)
[2018-06-15 06:55] LABS: ARTERIAL BLOOD FIO2 21%
--- NOTE | 2018-06-15 07:32 | PDOC PROGRESS REPORT ---
Subjective Progress Note for:: 06/15/18 Subjective:: follow up on Ct scan Reason For Visit: PROCTITIS CONSTIPATION patient brought back for follow up on CT scan to see if contrast had reached bowel read by radiologist who notes non obstructive pattern AND again no report of thickening of the bowel ? possible diagnosis of proctitis cannot be made on findings noted so far Hgb is stable no blood per rectum would recommend possible stool softener , daily laxative to promote bowel movements Physical Exam Vital Signs: Temp Pulse Resp BP Pulse Ox 99.8 F 76 18 136/49 H 96 06/15/18 03:08 06/15/18 03:25 06/15/18 03:25 06/15/18 03:08 06/15/18 03:25 Intake & Output 06/14/18 06/15/18 06/16/18 06:59 06:59 06:59 Intake Total 327 2473 Output Total 1050 1110 Balance -723 1363 Weight 94.5 kg 96.3 kg General appearance: PRESENT: well-developed, well-nourished. ABSENT: no acute distress Head exam: PRESENT: atraumatic, normocephalic Eye exam: PRESENT: EOMI, PERRLA. ABSENT: periorbital swelling, scleral icterus Mouth exam: PRESENT: moist Teeth exam: ABSENT: edentulous Throat exam: ABSENT: tonsillar exudate, tonsillogmegaly Neck exam: ABSENT: meningismus, tenderness, thyromegaly Respiratory exam: PRESENT: symmetrical, unlabored. ABSENT: tachypnea, wheezes Cardiovascular exam: PRESENT: RRR GI/Abdominal exam: PRESENT: soft. ABSENT: rebound, rigid, tenderness Extremities exam: ABSENT: joint swelling Musculoskeletal exam: PRESENT: full ROM Neurological exam: PRESENT: awake, CN II-XII grossly intact Focused psych exam: ABSENT: restlessness Skin exam: PRESENT: normal color. ABSENT: mottled, pallor, urticaria, vesicles Results Laboratory Results: 06/15/18 05:16 06/15/18 05:16 06/14/18 06/14/18 06/15/18 07:20 07:20 05:16 WBC 11.7 H 13.3 H RBC 3.39 L 3.74 Hgb 10.1 L 11.0 L Hct 30.0 L 33.0 L MCV 88 88 MCH 29.6 29.4 MCHC 33.5 33.2 RDW 16.3 H 16.5 H Plt Count 150 146 L Seg Neutrophils % Not Reportable 81.0 H Lymphocytes % Not Reportable 10.8 L Monocytes % Not Reportable 7.8 Eosinophils % Not Reportable 0.2 Basophils % Not Reportable 0.2 Absolute Neutrophils Not Reportable 10.8 H Absolute Lymphocytes Not Reportable 1.4 Absolute Monocytes Not Reportable 1.0 Absolute Eosinophils Not Reportable 0.0 Absolute Basophils Not Reportable 0.0 Carbonic Acid HCO3/H2CO3 Ratio ABG pH ABG pCO2 ABG pO2 ABG HCO3 ABG O2 Saturation ABG Base Excess FiO2 Sodium 130.2 L Potassium 4.1 Chloride 97 L Carbon Dioxide 24 Anion Gap 9 BUN 14 Creatinine 0.50 L Est GFR ( Amer) > 60 Est GFR (Non-Af Amer) > 60 Glucose 86 Calcium 8.0 L Magnesium Total Bilirubin AST ALT Alkaline Phosphatase Total Protein Albumin 06/15/18 06/15/18 05:16 06:30 WBC RBC Hgb Hct MCV MCH MCHC RDW Plt Count Seg Neutrophils % Lymphocytes % Monocytes % Eosinophils % Basophils % Absolute Neutrophils Absolute Lymphocytes Absolute Monocytes Absolute Eosinophils Absolute Basophils Carbonic Acid 0.86 L HCO3/H2CO3 Ratio 24:1 ABG pH 7.49 H ABG pCO2 28.5 L ABG pO2 90.6 ABG HCO3 21.4 ABG O2 Saturation 97.6 ABG Base Excess -0.8 FiO2 21% Sodium 131.3 L Potassium 4.1 Chloride 100 Carbon Dioxide 22 Anion Gap 9 BUN 18 Creatinine 0.56 Est GFR ( Amer) > 60 Est GFR (Non-Af Amer) > 60 Glucose 102 Calcium 8.4 Magnesium 2.0 Total Bilirubin 1.0 AST 33 ALT 35 Alkaline Phosphatase 79 Total Protein 4.8 L Albumin 2.6 L Impressions: Acute Abdomen Series 06/13/18 00:00 IMPRESSION: Nonspecific abdomen. Possible ileus. Distended urinary bladder. Osseous findings as described. KUB X-Ray 06/13/18 23:52 IMPRESSION: 1. The tip of the feeding tube terminates in the left upper quadrant likely within the proximal stomach. The patient has a known moderate hiatal hernia. 2. Nonspecific nonobstructive bowel gas pattern. 3. Other incidental findings as described above. Abdomen/Pelvis CT 06/14/18 16:17 IMPRESSION: Oral contrast given for CT at 0200 hours 06/14/2018 is now seen in the colon, in a nonobstructive pattern. Assessment & Plan - Diagnosis (1) Abdominal pain Qualifiers: Abdominal location: left lower quadrant Qualified Code(s): R10.32 - Left lower quadrant pain Is this a current diagnosis for this admission?: Yes Plan: ? due to ileus, patient has CT , non obstruction, no thickening, hgb is stable continue to follow no scopes planned for now (2) Constipation Is this a current diagnosis for this admission?: Yes - Time Time Spent with patient: 15-24 minutes
--- NOTE | 2018-06-15 10:04 | PDOC PROGRESS REPORT ---
Subjective Progress Note for:: 06/15/18 Subjective:: KHUSHI BARTLETT is a 88 year old female assisted living resident, with a past medical history of dementia, atrial fibrillation, hypertension, obesity, diabetes and chronic constipation. Patient presents 12 hours after evaluation in the emergency room for the same, with an unremarkable workup tolerating p.o. she was discharged home with instructions to follow-up with primary care. Symptoms have persisted and in the emergency room she is found to have fever, leukocytosis, abdominal pain and proctitis. She was started on empiric antibiotics of Levaquin and Flagyl. 06/15/2018. Overnight patient was complaining of shortness of breath and ABG was done which was unremarkable except for mild respiratory alkalosis. Patient was placed on BiPAP. On my encounter today patient is resting in bed complaining of shortness of breath however she is on room air and saturating fine. She does not seem to be in any acute distress. She is telling me that her abdominal pain has resolved however she has not had any bowel movement. She had a follow-up CT yesterday evening which did not show any obstruction. Gastroenterology has been following and they are not planning any intervention recommending patient to be started on a bowel regimen. She is denying any fever , chills, nausea, vomiting, diarrhea, chest pain or any urinary symptoms. Reason For Visit: PROCTITIS CONSTIPATION Physical Exam Vital Signs: Temp Pulse Resp BP Pulse Ox 99.8 F 72 18 136/49 H 96 06/15/18 03:08 06/15/18 07:00 06/15/18 03:25 06/15/18 03:08 06/15/18 03:25 Intake & Output 06/14/18 06/15/18 06/16/18 06:59 06:59 06:59 Intake Total 327 2473 Output Total 1050 1110 Balance -723 1363 Weight 94.5 kg 96.3 kg General appearance: PRESENT: no acute distress, well-developed, well-nourished Head exam: PRESENT: atraumatic, normocephalic Eye exam: PRESENT: conjunctiva pink, EOMI, PERRLA. ABSENT: scleral icterus Ear exam: PRESENT: normal external ear exam Mouth exam: PRESENT: moist, tongue midline Neck exam: ABSENT: carotid bruit, JVD, lymphadenopathy, thyromegaly Respiratory exam: PRESENT: clear to auscultation carmela. ABSENT: rales, rhonchi, wheezes Cardiovascular exam: PRESENT: RRR. ABSENT: diastolic murmur, rubs, systolic murmur Pulses: PRESENT: normal dorsalis pedis pul Vascular exam: PRESENT: normal capillary refill GI/Abdominal exam: PRESENT: distended, hypoactive bowel sounds, normal bowel sounds, soft. ABSENT: guarding, mass, organolmegaly, rebound, tenderness Rectal exam: PRESENT: deferred Extremities exam: PRESENT: full ROM. ABSENT: calf tenderness, clubbing, pedal edema Neurological exam: PRESENT: alert, awake, oriented to person, oriented to place , CN II-XII grossly intact. ABSENT: motor sensory deficit Psychiatric exam: PRESENT: appropriate affect, normal mood. ABSENT: homicidal ideation, suicidal ideation Skin exam: PRESENT: dry, intact, warm. ABSENT: cyanosis, rash Results Laboratory Results: 06/15/18 05:16 06/15/18 05:16 06/15/18 06/15/18 06/15/18 05:16 05:16 06:30 WBC 13.3 H RBC 3.74 Hgb 11.0 L Hct 33.0 L MCV 88 MCH 29.4 MCHC 33.2 RDW 16.5 H Plt Count 146 L Seg Neutrophils % 81.0 H Lymphocytes % 10.8 L Monocytes % 7.8 Eosinophils % 0.2 Basophils % 0.2 Absolute Neutrophils 10.8 H Absolute Lymphocytes 1.4 Absolute Monocytes 1.0 Absolute Eosinophils 0.0 Absolute Basophils 0.0 Carbonic Acid 0.86 L HCO3/H2CO3 Ratio 24:1 ABG pH 7.49 H ABG pCO2 28.5 L ABG pO2 90.6 ABG HCO3 21.4 ABG O2 Saturation 97.6 ABG Base Excess -0.8 FiO2 21% Sodium 131.3 L Potassium 4.1 Chloride 100 Carbon Dioxide 22 Anion Gap 9 BUN 18 Creatinine 0.56 Est GFR ( Amer) > 60 Est GFR (Non-Af Amer) > 60 Glucose 102 Calcium 8.4 Magnesium 2.0 Total Bilirubin 1.0 AST 33 ALT 35 Alkaline Phosphatase 79 Total Protein 4.8 L Albumin 2.6 L Impressions: Acute Abdomen Series 06/13/18 00:00 IMPRESSION: Nonspecific abdomen. Possible ileus. Distended urinary bladder. Osseous findings as described. KUB X-Ray 06/13/18 23:52 IMPRESSION: 1. The tip of the feeding tube terminates in the left upper quadrant likely within the proximal stomach. The patient has a known moderate hiatal hernia. 2. Nonspecific nonobstructive bowel gas pattern. 3. Other incidental findings as described above. Abdomen/Pelvis CT 06/14/18 16:17 IMPRESSION: Oral contrast given for CT at 0200 hours 06/14/2018 is now seen in the colon, in a nonobstructive pattern. Assessment & Plan - Diagnosis (1) Abdominal pain Qualifiers: Abdominal location: generalized Qualified Code(s): R10.84 - Generalized abdominal pain Is this a current diagnosis for this admission?: Yes Plan: Improving. CT abdomen with contrast on 06/14/2018 did not show any obstruction or mention of thickening of the bowel which makes diagnosis of proctitis unlikely however patient still has leukocytosis. H&H is stable no blood per rectum. Continue empiric antibiotics. Abdominal pain could be due to underlying constipation or ileus. Will start on bowel regimen. (2) Constipation Is this a current diagnosis for this admission?: Yes Plan: Patient has history of chronic constipation. Will start on bowel regimen. (3) Proctitis Is this a current diagnosis for this admission?: Yes Plan: CT abdomen and pelvis with oral contrast on 06/14/2018 negative for any obstruction or mention of any bowel thickening which makes proctitis unlikely. Patient still has mild leukocytosis. We will continue empiric antibiotics for another day. (4) Atrial fibrillation and flutter Is this a current diagnosis for this admission?: No Plan: Currently rate controlled. Continue beta-blockers. Continue DVT prophylaxis. On chart review I could not find a reason why patient is not on anticoagulation. Will discuss with family about anticoagulation. (5) Chronic lymphocytic leukemia Is this a current diagnosis for this admission?: No Plan: In remission. Outpatient oncology follow-up. (6) Hypertension Qualifiers: Hypertension type: essential hypertension Qualified Code(s): I10 - Essential (primary) hypertension Is this a current diagnosis for this admission?: No Plan: Normotensive, euvolemic. Restart home meds. Adjust meds as needed. (7) Hyperlipidemia Qualifiers: Hyperlipidemia type: unspecified Qualified Code(s): E78.5 - Hyperlipidemia , unspecified Is this a current diagnosis for this admission?: No Plan: Continue statins. (8) Hypothyroidism Qualifiers: Hypothyroidism type: acquired Qualified Code(s): E03.9 - Hypothyroidism, unspecified Is this a current diagnosis for this admission?: No Plan: Restart levothyroxine. Will obtain another set of TSH, T4 and T3
[2018-06-15] MEDS ORDERED: BUSPIRONE HCL 10 MG TABLET PO SCH (11:00)
[2018-06-15] MEDS: AMLODIPINE BESYLATE 2.5 MG TABLET PO SCH (11:17)
[2018-06-15] MEDS: DOCUSATE SODIUM 100 MG CAPSULE PO SCH ×2 (11:18→18:05)
[2018-06-15] MEDS: BISACODYL 5 MG TABEC PO SCH (11:18)
[2018-06-15] MEDS: POLYETHYLENE GLYCOL 3350 POWDER 17 GM/1 PACKET PO SCH (11:18)
[2018-06-15] MEDS: LEVOTHYROXINE SODIUM 0.1 MG TABLET PO SCH (11:18)
[2018-06-15] MEDS: METOPROLOL TARTRATE 50 MG TABLET PO SCH ×2 (11:21→22:28)
[2018-06-15 12:56] LABS: FREE T3 1.6 pg/mL (2.77-5.27); FREE T4 (FREE THYROXINE) 1.51 ng/dL (0.78-2.19)
[2018-06-15 13:09] LABS: THYROID STIMULATING HORMONE 1.66 uIU/mL (0.47-4.68)
[2018-06-15] MEDS: LEVOFLOXACIN 750 MG/D5W RTU 750 MG/150 ML RTUPB IV SCH (18:05)
[2018-06-15] MEDS: KETOROLAC TROMETHAMINE INJ/PF 30 MG/1 ML SDV IV PRN (20:55)
[2018-06-16] MEDS: METRONIDAZOLE 500 MG/NS RTU 500 MG/100 ML RTUPB IV SCH ×4 (00:33→19:24)
[2018-06-16 06:08] LABS: ABSOLUTE EOSINOPHILS # (AUTO) 0.1 10^3/uL (0.0-0.6); ABSOLUTE MONOCYTES (AUTO) 0.9 10^3/uL (0.1-1.4); ABSOLUTE NEUT (AUTO) 11.8 10^3/uL (1.7-8.2); BASOPHILS % (AUTO) 0.3 % (0-2); EOSINOPHILS % (AUTO) 0.8 % (0-6); HEMATOCRIT 34.5 % (36.0-47.0); HEMOGLOBIN 11.4 g/dL (12.0-15.5); LYMPHOCYTES % (AUTO) 13.5 % (13-45); MEAN CORPUSCULAR HEMOGLOBIN 29.2 pg (27.0-33.4); MEAN CORPUSCULAR HGB CONC 33.2 g/dL (32.0-36.0); MEAN CORPUSCULAR VOLUME 88 fl (80-97); MONOCYTES % (AUTO) 5.9 % (3-13); PLATELET COUNT 149 10^3/uL (150-450); RED BLOOD COUNT 3.92 10^6/uL (3.72-5.28); RED CELL DISTRIBUTION WIDTH 16.6 % (11.5-14.0); SEGMENTED NEUTROPHILS % (AUTO) 79.5 % (42-78); TOTAL CELLS COUNTED % (AUTO) 100 %; WHITE BLOOD COUNT 14.8 10^3/uL (4.0-10.5)
[2018-06-16] MEDS: HEPARIN SOD (PORCINE) 5,000 UNIT/ML 1 ML SYRINGE SUBCUT SCH ×3 (06:32→22:03)
[2018-06-16] MEDS: LANSOPRAZOLE 30 MG TAB.RAP.DR PO SCH ×2 (06:33→17:36)
[2018-06-16] MEDS: LEVOTHYROXINE SODIUM 0.1 MG TABLET PO SCH (06:33)
[2018-06-16 06:35] LABS: ALANINE AMINOTRANSFERASE 36 U/L (9-52); ALBUMIN 2.3 g/dL (3.5-5.0); ALKALINE PHOSPHATASE 76 U/L (38-126); ANION GAP 10 (5-19); ASPARTATE AMINO TRANSFERASE 28 U/L (14-36); BILIRUBIN,DIRECT 0.4 mg/dL (0.0-0.4); BILIRUBIN,TOTAL 0.8 mg/dL (0.2-1.3); BLOOD UREA NITROGEN 24 mg/dL (7-20); CALCIUM 8.2 mg/dL (8.4-10.2); CARBON DIOXIDE 22 mmol/L (22-30); CHLORIDE 100 mmol/L (98-107); GLUCOSE 91 mg/dL (75-110); POTASSIUM 4.2 mmol/L (3.6-5.0); SODIUM 131.6 mmol/L (137-145); TOTAL PROTEIN 4.4 g/dL (6.3-8.2)
[2018-06-16] MEDS: KETOROLAC TROMETHAMINE INJ/PF 30 MG/1 ML SDV IV PRN ×2 (10:15→22:01)
[2018-06-16] MEDS: METOPROLOL TARTRATE 50 MG TABLET PO SCH (10:18)
[2018-06-16] MEDS: AMLODIPINE BESYLATE 2.5 MG TABLET PO SCH (10:18)
[2018-06-16] MEDS: BISACODYL 5 MG TABEC PO SCH (10:18)
[2018-06-16] MEDS: DOCUSATE SODIUM 100 MG CAPSULE PO SCH ×2 (10:18→17:36)
[2018-06-16] MEDS: POLYETHYLENE GLYCOL 3350 POWDER 17 GM/1 PACKET PO SCH (10:19)
[2018-06-16] MEDS: NORMAL SALINE 1000 ML 1,000 ML IV PRN (10:19)
--- NOTE | 2018-06-16 11:22 | PDOC PROGRESS REPORT ---
Subjective Progress Note for:: 06/16/18 Subjective:: KHUSHI BARTLETT is a 88 year old female assisted living resident, with a past medical history of dementia, atrial fibrillation, hypertension, obesity, diabetes and chronic constipation. Patient presents 12 hours after evaluation in the emergency room for the same, with an unremarkable workup tolerating p.o. she was discharged home with instructions to follow-up with primary care. Symptoms have persisted and in the emergency room she is found to have fever, leukocytosis, abdominal pain and proctitis. She was started on empiric antibiotics of Levaquin and Flagyl. 06/15/2018. Overnight patient was complaining of shortness of breath and ABG was done which was unremarkable except for mild respiratory alkalosis. Patient was placed on BiPAP. On my encounter today patient is resting in bed complaining of shortness of breath however she is on room air and saturating fine. She does not seem to be in any acute distress. She is telling me that her abdominal pain has resolved however she has not had any bowel movement. She had a follow-up CT yesterday evening which did not show any obstruction. Gastroenterology has been following and they are not planning any intervention recommending patient to be started on a bowel regimen. She is denying any fever , chills, nausea, vomiting, diarrhea, chest pain or any urinary symptoms. 06/16/2018. No acute events overnight. Patient had a bowel movement yesterday. Upon my encounter patient is comfortably resting in her bed and she is stating that she is not short of breath anymore and her abdominal pain has resolved. Due to underlying severe dementia patient does not provide much detail about her activity in the hospital. When asked what she ate yesterday she does not remember and also she does not remember that she had a bowel movement yesterday. She denies any pain, shortness of breath, nausea, vomiting , diarrhea, abdominal pain, constipation, any urinary symptoms. Reason For Visit: PROCTITIS CONSTIPATION Physical Exam Vital Signs: Temp Pulse Resp BP Pulse Ox 98.3 F 70 18 121/67 96 06/16/18 07:51 06/16/18 08:00 06/16/18 08:00 06/16/18 07:51 06/16/18 08:00 Intake & Output 06/15/18 06/16/18 06/17/18 06:59 06:59 06:59 Intake Total 3163 737 100 Output Total 1110 500 Balance 1363 237 100 Weight 96.3 kg 95.5 kg General appearance: PRESENT: no acute distress, well-developed, well-nourished Head exam: PRESENT: atraumatic, normocephalic Eye exam: PRESENT: conjunctiva pink, EOMI, PERRLA. ABSENT: scleral icterus Ear exam: PRESENT: normal external ear exam Mouth exam: PRESENT: moist, tongue midline Neck exam: ABSENT: carotid bruit, JVD, lymphadenopathy, thyromegaly Respiratory exam: PRESENT: clear to auscultation carmela. ABSENT: rales, rhonchi, wheezes Cardiovascular exam: PRESENT: RRR. ABSENT: diastolic murmur, rubs, systolic murmur Pulses: PRESENT: normal dorsalis pedis pul Vascular exam: PRESENT: normal capillary refill GI/Abdominal exam: PRESENT: distended, normal bowel sounds, soft. ABSENT: guarding, mass, organolmegaly, rebound, tenderness Rectal exam: PRESENT: deferred Extremities exam: PRESENT: full ROM. ABSENT: calf tenderness, clubbing, pedal edema Neurological exam: PRESENT: alert, awake, oriented to person, CN II-XII grossly intact. ABSENT: motor sensory deficit Psychiatric exam: PRESENT: appropriate affect, normal mood. ABSENT: homicidal ideation, suicidal ideation Skin exam: PRESENT: dry, intact, warm. ABSENT: cyanosis, rash Results Laboratory Results: 06/16/18 05:59 06/16/18 05:59 06/15/18 06/16/18 06/16/18 05:16 05:59 05:59 WBC 14.8 H RBC 3.92 Hgb 11.4 L Hct 34.5 L MCV 88 MCH 29.2 MCHC 33.2 RDW 16.6 H Plt Count 149 L Seg Neutrophils % 79.5 H Lymphocytes % 13.5 Monocytes % 5.9 Eosinophils % 0.8 Basophils % 0.3 Absolute Neutrophils 11.8 H Absolute Lymphocytes 2.0 Absolute Monocytes 0.9 Absolute Eosinophils 0.1 Absolute Basophils 0.0 Sodium 131.6 L Potassium 4.2 Chloride 100 Carbon Dioxide 22 Anion Gap 10 BUN 24 H Creatinine 0.60 Est GFR ( Amer) > 60 Est GFR (Non-Af Amer) > 60 Glucose 91 Calcium 8.2 L Magnesium 2.1 Total Bilirubin 0.8 AST 28 ALT 36 Alkaline Phosphatase 76 Total Protein 4.4 L Albumin 2.3 L TSH 1.66 Free T4 1.51 Free T3 pg/mL 1.60 L Impressions: Acute Abdomen Series 06/13/18 00:00 IMPRESSION: Nonspecific abdomen. Possible ileus. Distended urinary bladder. Osseous findings as described. KUB X-Ray 06/13/18 23:52 IMPRESSION: 1. The tip of the feeding tube terminates in the left upper quadrant likely within the proximal stomach. The patient has a known moderate hiatal hernia. 2. Nonspecific nonobstructive bowel gas pattern. 3. Other incidental findings as described above. Abdomen/Pelvis CT 06/14/18 16:17 IMPRESSION: Oral contrast given for CT at 0200 hours 06/14/2018 is now seen in the colon, in a nonobstructive pattern. Assessment & Plan - Diagnosis (1) Abdominal pain Qualifiers: Abdominal location: generalized Qualified Code(s): R10.84 - Generalized abdominal pain Is this a current diagnosis for this admission?: Yes Plan: Improving. CT abdomen with contrast on 06/14/2018 did not show any obstruction or mention of thickening of the bowel which makes diagnosis of proctitis unlikely however patient still has leukocytosis. H&H is stable no blood per rectum. Continue empiric antibiotics. Abdominal pain could be due to underlying constipation or ileus. Continue bowel regimen. (2) Constipation Is this a current diagnosis for this admission?: Yes Plan: Patient has history of chronic constipation. She had one bowel movement yesterday. Continue bowel regimen. Encourage p.o. intake (3) Proctitis Is this a current diagnosis for this admission?: Yes Plan: CT abdomen and pelvis with oral contrast on 06/14/2018 negative for any obstruction or mention of any bowel thickening which makes proctitis unlikely. Leukocytosis improving. Continue empiric antibiotics. Cultures negative so far. (4) Atrial fibrillation and flutter Is this a current diagnosis for this admission?: No Plan: Currently rate controlled. Continue beta-blockers. Continue DVT prophylaxis. On chart review I could not find a reason why patient is not on anticoagulation. Will discuss with family about anticoagulation. (5) Chronic lymphocytic leukemia Is this a current diagnosis for this admission?: No Plan: In remission. Outpatient oncology follow-up. (6) Hypertension Qualifiers: Hypertension type: essential hypertension Qualified Code(s): I10 - Essential (primary) hypertension Is this a current diagnosis for this admission?: No Plan: Normotensive, euvolemic. Restart home meds. Adjust meds as needed. (7) Hyperlipidemia Qualifiers: Hyperlipidemia type: unspecified Qualified Code(s): E78.5 - Hyperlipidemia , unspecified Is this a current diagnosis for this admission?: No Plan: Continue statins. (8) Hypothyroidism Qualifiers: Hypothyroidism type: acquired Qualified Code(s): E03.9 - Hypothyroidism, unspecified Is this a current diagnosis for this admission?: No Plan: Restart levothyroxine. TSH 1.66.
[2018-06-16] MEDS: OXYCODONE-ACETAMINOPHEN 5-325 MG TABLET PO PRN (15:04)
[2018-06-16] MEDS: LEVOFLOXACIN 750 MG/D5W RTU 750 MG/150 ML RTUPB IV SCH (17:36)
--- NOTE | 2018-06-17 00:02 | PDOC CONSULTATION ---
History of Present Illness Admission Date/PCP: 06/14/18 00:17 TRU [facility] Patient complains of: Perianal discomfort History of Present Illness: KHUSHI BARTLETT is a 88 year old female with advanced dementia currently in the hospital for really unclear reasons other than evaluation of leukocytosis and multiple varying complaints. Patient initially had abdominal pain but no longer has it. Uncertain whether she has any perianal pain but she was noted with swelling in the perianal region and general surgery consultation now being obtained. No apparent blood per rectum. 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 Denies: Pacemaker Social History Lives with: Other - Assisted living Smoking Status: Unknown if Ever Smoked Frequency of Alcohol Use: None Hx Recreational Drug Use: No Drugs: None Hx Prescription Drug Abuse: No - Advance Directive Resuscitation Status: Full Code Family History Family History: Hypertension Parental Family History Reviewed: No Children Family History Reviewed: No Sibling(s) Family History Reviewed.: No Medication/Allergy Home Medications: Acetaminophen [Tylenol Extra Strength] 1,000 mg PO TID 06/14/18 Amlodipine Besylate [Norvasc 5 mg Tablet] 5 mg PO DAILY 06/14/18 Buspirone HCl [Buspar 10 mg Tablet] 10 mg PO Q12 06/14/18 Furosemide [Lasix 20 mg Tablet] 20 mg PO QAM 06/14/18 Levothyroxine Sodium [Synthroid] 100 mcg PO Q6AM 06/14/18 Menthol/Camphor [Biofreeze With Ilex Gel] 1 applic TP TID 06/14/18 Metoprolol Tartrate [Lopressor 50 mg Tablet] 50 mg PO Q12 06/14/18 Nystatin [Mycostatin Ointment] 1 applic TP BID 06/14/18 Ondansetron [Zofran Odt] 4 mg PO Q8HP PRN 06/14/18 Pantoprazole Sodium [Protonix] 40 mg PO DAILY 06/14/18 Polyethylene Glycol 3350 [Miralax Powder 17 gm/Packet] 1 packet PO DAILYP PRN Potassium Chloride 20 meq PO BID 06/14/18 Allergies/Adverse Reactions: Cephalosporins Allergy (Severe, Verified 05/17/18 18:40) Anaphylaxis lisinopril [From Zestril] Allergy (Severe, Verified 05/17/18 18:40) Hives bacitracin [From Neosporin] Allergy (Intermediate, Verified 05/17/18 18:40) Blisters gramicidin D [From Neosporin] Allergy (Intermediate, Verified 05/17/18 18:40) Blisters latex [Latex] Allergy (Intermediate, Verified 05/17/18 18:40) LATEX neomycin sulfate [From Neosporin] Allergy (Intermediate, Verified 05/17/18 18:40 ) Blisters polymyxin B [From Neosporin] Allergy (Intermediate, Verified 05/17/18 18:40) Blisters sulindac [Sulindac] Allergy (Unknown, Verified 05/17/18 18:40) flector patch Allergy (Intermediate, Uncoded 05/17/18 18:40) Blisters soaps Allergy (Intermediate, Uncoded 05/17/18 18:40) tape Allergy (Intermediate, Uncoded 05/17/18 18:40) Blisters Review of Systems ROS unobtainable: Due to mental status Physical Exam Vital Signs: Temp Pulse Resp BP Pulse Ox 98.6 F 70 22 H 97/61 L 97 06/16/18 19:48 06/16/18 19:48 06/16/18 19:48 06/16/18 19:48 06/16/18 19:48 Intake & Output 06/15/18 06/16/18 06/17/18 06:59 06:59 06:59 Intake Total 4233 737 1493 Output Total 1110 500 250 Balance 3223 350 9223 Weight 96.3 kg 95.5 kg General appearance: PRESENT: no acute distress, disheveled Eye exam: PRESENT: conjunctiva pink Respiratory exam: PRESENT: clear to auscultation carmela Cardiovascular exam: PRESENT: RRR GI/Abdominal exam: PRESENT: other - Soft, nondistended, nontender to palpation Rectal exam: PRESENT: other - Swelling at the perianal region without erythema consistent with prolapsing internal hemorrhoids that are soft and reducible. Some discoloration at the perianal region but no crepitus and no fluctuance and no erythema. Digital rectal exam reveals no palpable anal canal masses other than the reducible hemorrhoids. Patient had profuse very loose diarrheal stools with digital rectal exam. No blood per rectum Results Laboratory Results: 06/16/18 05:59 06/16/18 05:59 06/16/18 06/16/18 05:59 05:59 WBC 14.8 H RBC 3.92 Hgb 11.4 L Hct 34.5 L MCV 88 MCH 29.2 MCHC 33.2 RDW 16.6 H Plt Count 149 L Seg Neutrophils % 79.5 H Lymphocytes % 13.5 Monocytes % 5.9 Eosinophils % 0.8 Basophils % 0.3 Absolute Neutrophils 11.8 H Absolute Lymphocytes 2.0 Absolute Monocytes 0.9 Absolute Eosinophils 0.1 Absolute Basophils 0.0 Sodium 131.6 L Potassium 4.2 Chloride 100 Carbon Dioxide 22 Anion Gap 10 BUN 24 H Creatinine 0.60 Est GFR ( Amer) > 60 Est GFR (Non-Af Amer) > 60 Glucose 91 Calcium 8.2 L Magnesium 2.1 Total Bilirubin 0.8 AST 28 ALT 36 Alkaline Phosphatase 76 Total Protein 4.4 L Albumin 2.3 L Impressions: Acute Abdomen Series 06/13/18 00:00 IMPRESSION: Nonspecific abdomen. Possible ileus. Distended urinary bladder. Osseous findings as described. KUB X-Ray 06/13/18 23:52 IMPRESSION: 1. The tip of the feeding tube terminates in the left upper quadrant likely within the proximal stomach. The patient has a known moderate hiatal hernia. 2. Nonspecific nonobstructive bowel gas pattern. 3. Other incidental findings as described above. Abdomen/Pelvis CT 06/14/18 16:17 IMPRESSION: Oral contrast given for CT at 0200 hours 06/14/2018 is now seen in the colon, in a nonobstructive pattern. Assessment & Plan - Diagnosis (1) Internal hemorrhoids Is this a current diagnosis for this admission?: Yes Plan: Grade 2-3 hemorrhoids that are easily reducible. Likely flared due to her diarrhea. I do not advise surgical intervention in this patient with multiple medical problems and uncertain of whether she is symptomatic. I do recommend stool studies for C. difficile in light of her profuse diarrhea. I do not see evidence of perianal abscess nor thrombosed external hemorrhoid. I will obtain second opinion from the oncoming surgeon tomorrow.
[2018-06-17] MEDS: METOPROLOL TARTRATE 50 MG TABLET PO SCH ×3 (00:27→21:42)
[2018-06-17] MEDS: METRONIDAZOLE 500 MG/NS RTU 500 MG/100 ML RTUPB IV SCH ×5 (00:28→23:33)
[2018-06-17] MEDS: OXYCODONE-ACETAMINOPHEN 5-325 MG TABLET PO PRN (00:28)
[2018-06-17] MEDS: NORMAL SALINE 1000 ML 1,000 ML IV PRN ×2 (03:57→21:45)
[2018-06-17] MEDS: LEVOTHYROXINE SODIUM 0.1 MG TABLET PO SCH (06:19)
[2018-06-17] MEDS: HEPARIN SOD (PORCINE) 5,000 UNIT/ML 1 ML SYRINGE SUBCUT SCH ×3 (06:19→21:42)
[2018-06-17] MEDS: LANSOPRAZOLE 30 MG TAB.RAP.DR PO SCH ×2 (06:19→17:34)
[2018-06-17 06:55] LABS: HEMATOCRIT 32.3 % (36.0-47.0); HEMOGLOBIN 10.6 g/dL (12.0-15.5); MEAN CORPUSCULAR HEMOGLOBIN 29.2 pg (27.0-33.4); MEAN CORPUSCULAR HGB CONC 32.9 g/dL (32.0-36.0); MEAN CORPUSCULAR VOLUME 89 fl (80-97); PLATELET COUNT 146 10^3/uL (150-450); RED BLOOD COUNT 3.64 10^6/uL (3.72-5.28); RED CELL DISTRIBUTION WIDTH 16.4 % (11.5-14.0); WHITE BLOOD COUNT 16.5 10^3/uL (4.0-10.5)
[2018-06-17 07:10] LABS: ALANINE AMINOTRANSFERASE 25 U/L (9-52); ALBUMIN 2.2 g/dL (3.5-5.0); ALKALINE PHOSPHATASE 74 U/L (38-126); ANION GAP 10 (5-19); ASPARTATE AMINO TRANSFERASE 25 U/L (14-36); BILIRUBIN,DIRECT 0.3 mg/dL (0.0-0.4); BILIRUBIN,TOTAL 0.7 mg/dL (0.2-1.3); BLOOD UREA NITROGEN 24 mg/dL (7-20); CALCIUM 7.9 mg/dL (8.4-10.2); CARBON DIOXIDE 20 mmol/L (22-30); CHLORIDE 99 mmol/L (98-107); GLUCOSE 79 mg/dL (75-110); POTASSIUM 4.2 mmol/L (3.6-5.0); SODIUM 129.2 mmol/L (137-145); TOTAL PROTEIN 4.3 g/dL (6.3-8.2)
[2018-06-17 07:13] LABS: ABSOLUTE LYMPHOCYTES# (MANUAL) 2.8 10^3/uL (0.5-4.7); ABSOLUTE MONOCYTES # (MANUAL) 0.5 10^3/uL (0.1-1.4); ABSOLUTE NEUTROPHILS# (MANUAL) 13.2 10^3/uL (1.7-8.2); BAND NEUTROPHILS % (MANUAL) 4 % (3-5); BASOPHILS % (MANUAL) 0 % (0-2); EOSINOPHILS % (MANUAL) 0 % (0-6); LYMPHOCYTES % (MANUAL) 17 % (13-45); MONOCYTES % (MANUAL) 3 % (3-13); SEGMENTED NEUTROPHILS % (MAN) 76 % (42-78); TOTAL CELLS COUNTED 100
[2018-06-17 07:15] LABS: ANISOCYTOSIS 1+; PLATELET COMMENT DECREASED; POLYCHROMASIA SLIGHT; TOXIC GRANULATION SLIGHT; TOXIC VACUOLATION PRESENT
[2018-06-17] MEDS: DOCUSATE SODIUM 100 MG CAPSULE PO SCH ×2 (09:52→17:34)
[2018-06-17] MEDS: BISACODYL 5 MG TABEC PO SCH (09:52)
[2018-06-17] MEDS: AMLODIPINE BESYLATE 2.5 MG TABLET PO SCH (09:53)
[2018-06-17] MEDS: POLYETHYLENE GLYCOL 3350 POWDER 17 GM/1 PACKET PO SCH (09:53)
[2018-06-17] MEDS: KETOROLAC TROMETHAMINE INJ/PF 30 MG/1 ML SDV IV PRN ×2 (10:01→21:48)
--- NOTE | 2018-06-17 10:53 | PDOC PROGRESS REPORT ---
Subjective Progress Note for:: 06/17/18 Subjective:: KHUSHI BARTLETT is a 88 year old female assisted living resident, with a past medical history of dementia, atrial fibrillation, hypertension, obesity, diabetes and chronic constipation. Patient presents 12 hours after evaluation in the emergency room for the same, with an unremarkable workup tolerating p.o. she was discharged home with instructions to follow-up with primary care. Symptoms have persisted and in the emergency room she is found to have fever, leukocytosis, abdominal pain and proctitis. She was started on empiric antibiotics of Levaquin and Flagyl. 06/15/2018. Overnight patient was complaining of shortness of breath and ABG was done which was unremarkable except for mild respiratory alkalosis. Patient was placed on BiPAP. On my encounter today patient is resting in bed complaining of shortness of breath however she is on room air and saturating fine. She does not seem to be in any acute distress. She is telling me that her abdominal pain has resolved however she has not had any bowel movement. She had a follow-up CT yesterday evening which did not show any obstruction. Gastroenterology has been following and they are not planning any intervention recommending patient to be started on a bowel regimen. She is denying any fever , chills, nausea, vomiting, diarrhea, chest pain or any urinary symptoms. 06/16/2018. No acute events overnight. Patient had a bowel movement yesterday. Upon my encounter patient is comfortably resting in her bed and she is stating that she is not short of breath anymore and her abdominal pain has resolved. Due to underlying severe dementia patient does not provide much detail about her activity in the hospital. When asked what she ate yesterday she does not remember and also she does not remember that she had a bowel movement yesterday. She denies any pain, shortness of breath, nausea, vomiting , diarrhea, abdominal pain, constipation, any urinary symptoms. 06/17/2018. No acute events overnight. Patient is awake and alert and cooperative with physical examination. She seen the shortness of breath has improved but she is having some abdominal pain. She does not remember if she ate last night or if she had a bowel movement. As per chart note patient has been having diarrhea. She denies any fever, chills, nausea, vomiting, constipation, shortness of breath or any chest pain. Reason For Visit: PROCTITIS CONSTIPATION Physical Exam Vital Signs: Temp Pulse Resp BP Pulse Ox 97.4 F 69 14 125/64 97 06/17/18 08:06 06/17/18 09:55 06/17/18 09:55 06/17/18 08:06 06/17/18 09:55 Intake & Output 06/16/18 06/17/18 06/18/18 06:59 06:59 06:59 Intake Total 737 2593 Output Total 500 525 Balance 237 2068 Weight 95.5 kg 99.3 kg General appearance: PRESENT: no acute distress, well-developed, well-nourished Head exam: PRESENT: atraumatic, normocephalic Eye exam: PRESENT: conjunctiva pink, EOMI, PERRLA. ABSENT: scleral icterus Ear exam: PRESENT: normal external ear exam Mouth exam: PRESENT: moist, tongue midline Neck exam: ABSENT: carotid bruit, JVD, lymphadenopathy, thyromegaly Respiratory exam: PRESENT: clear to auscultation carmela. ABSENT: rales, rhonchi, wheezes Cardiovascular exam: PRESENT: RRR. ABSENT: diastolic murmur, rubs, systolic murmur Pulses: PRESENT: normal dorsalis pedis pul Vascular exam: PRESENT: normal capillary refill GI/Abdominal exam: PRESENT: normal bowel sounds, soft, tenderness - Diffuse tenderness.. ABSENT: distended, guarding, mass, organolmegaly, rebound Rectal exam: PRESENT: deferred Extremities exam: PRESENT: full ROM. ABSENT: calf tenderness, clubbing, pedal edema Neurological exam: PRESENT: alert, awake, CN II-XII grossly intact. ABSENT: motor sensory deficit Psychiatric exam: PRESENT: appropriate affect, normal mood. ABSENT: homicidal ideation, suicidal ideation Skin exam: PRESENT: dry, intact, warm. ABSENT: cyanosis, rash Results Laboratory Results: 06/17/18 06:46 06/17/18 06:46 06/17/18 06/17/18 06:46 06:46 WBC 16.5 H RBC 3.64 L Hgb 10.6 L Hct 32.3 L MCV 89 MCH 29.2 MCHC 32.9 RDW 16.4 H Plt Count 146 L Seg Neutrophils % Not Reportable Lymphocytes % Not Reportable Monocytes % Not Reportable Eosinophils % Not Reportable Basophils % Not Reportable Absolute Neutrophils Not Reportable Absolute Lymphocytes Not Reportable Absolute Monocytes Not Reportable Absolute Eosinophils Not Reportable Absolute Basophils Not Reportable Sodium 129.2 L Potassium 4.2 Chloride 99 Carbon Dioxide 20 L Anion Gap 10 BUN 24 H Creatinine 0.54 Est GFR ( Amer) > 60 Est GFR (Non-Af Amer) > 60 Glucose 79 Calcium 7.9 L Total Bilirubin 0.7 AST 25 ALT 25 Alkaline Phosphatase 74 Total Protein 4.3 L Albumin 2.2 L Impressions: Acute Abdomen Series 06/13/18 00:00 IMPRESSION: Nonspecific abdomen. Possible ileus. Distended urinary bladder. Osseous findings as described. KUB X-Ray 06/13/18 23:52 IMPRESSION: 1. The tip of the feeding tube terminates in the left upper quadrant likely within the proximal stomach. The patient has a known moderate hiatal hernia. 2. Nonspecific nonobstructive bowel gas pattern. 3. Other incidental findings as described above. Abdomen/Pelvis CT 06/14/18 16:17 IMPRESSION: Oral contrast given for CT at 0200 hours 06/14/2018 is now seen in the colon, in a nonobstructive pattern. Assessment & Plan - Diagnosis (1) Abdominal pain Qualifiers: Abdominal location: generalized Qualified Code(s): R10.84 - Generalized abdominal pain Is this a current diagnosis for this admission?: Yes Plan: Proving but has not resolved. CT abdomen with contrast on 06/14/2018 did not show any obstruction or mention of thickening of the bowel which makes diagnosis of proctitis unlikely however patient still has leukocytosis. H&H is stable no blood per rectum. Continue empiric antibiotics. Abdominal pain could be due to underlying constipation or ileus. Continue stool softeners. Hold bowel regimen due to diarrhea. (2) Constipation Is this a current diagnosis for this admission?: Yes Plan: Resolved. Actually having diarrhea possibly due to aggressive treatment of her constipation. Hold bowel regimen. Encourage p.o. intake (3) Proctitis Is this a current diagnosis for this admission?: Yes Plan: CT abdomen and pelvis with oral contrast on 06/14/2018 negative for any obstruction or mention of any bowel thickening which makes proctitis unlikely. Leukocytosis improving. Continue empiric antibiotics. Cultures negative so far. (4) Atrial fibrillation and flutter Is this a current diagnosis for this admission?: No Plan: Currently rate controlled. Continue beta-blockers. Continue DVT prophylaxis. Patient is not on chronic anticoagulation due to previous complications of anticoagulation therapy as per family. Patient family was counseled about the risk and benefits of chronic anticoagulation. (5) Chronic lymphocytic leukemia Is this a current diagnosis for this admission?: No Plan: In remission. Outpatient oncology follow-up. (6) Hypertension Qualifiers: Hypertension type: essential hypertension Qualified Code(s): I10 - Essential (primary) hypertension Is this a current diagnosis for this admission?: No Plan: Normotensive, euvolemic. Restart home meds. Adjust meds as needed. (7) Hyperlipidemia Qualifiers: Hyperlipidemia type: unspecified Qualified Code(s): E78.5 - Hyperlipidemia , unspecified Is this a current diagnosis for this admission?: No Plan: Continue statins. (8) Hypothyroidism Qualifiers: Hypothyroidism type: acquired Qualified Code(s): E03.9 - Hypothyroidism, unspecified Is this a current diagnosis for this admission?: No Plan: Restart levothyroxine. TSH 1.66. (9) Diarrhea Qualifiers: Diarrhea type: unspecified type Qualified Code(s): R19.7 - Diarrhea, unspecified Is this a current diagnosis for this admission?: Yes Plan: Possibly to aggressive treatment of underlying constipation. Hold bowel regimen encourage p.o. intake. Stool workup to rule out any infectious diarrhea. C. difficile toxin negative. (10) External hemorrhoid Is this a current diagnosis for this admission?: Yes Plan: As per surgery note grade 2 through 3 hemorrhoids that are easily reducible possibly exacerbated by diarrhea. No surgical intervention advised at this point. We will continue to manage underlying diarrhea and wound care. Refer to consult note. (11) Hyponatremia Is this a current diagnosis for this admission?: Yes Plan: Acute hyponatremia. Likely due to underlying diarrhea. Encourage p.o. intake. Continue normal saline. CMP tomorrow.
[2018-06-17] MEDS: FENTANYL CITRATE INJ/PF 100 MCG/2 ML AMPUL IV PRN (12:27)
[2018-06-17 12:51] LABS: APPEARANCE,URINE CLEAR; BILIRUBIN,URINE NEGATIVE (NEGATIVE); GLUCOSE, URINE NEGATIVE (NEGATIVE); KETONES,URINE NEGATIVE (NEGATIVE); LEUKOCYTE ESTERASE,URINE MODERATE (NEGATIVE); NITRITE,URINE NEGATIVE (NEGATIVE); PROTEIN,URINE 100 mg/dL (NEGATIVE); URINE SPECIFIC GRAVITY 1.023
[2018-06-17 12:52] LABS: COLOR,URINE YELLOW
[2018-06-17] MEDS: LEVOFLOXACIN 750 MG/D5W RTU 750 MG/150 ML RTUPB IV SCH (17:34)
[2018-06-18] MEDS: FENTANYL CITRATE INJ/PF 100 MCG/2 ML AMPUL IV PRN ×2 (01:01→20:15)
[2018-06-18] MEDS: OXYCODONE-ACETAMINOPHEN 5-325 MG TABLET PO PRN (02:16)
[2018-06-18] MEDS: HEPARIN SOD (PORCINE) 5,000 UNIT/ML 1 ML SYRINGE SUBCUT SCH ×2 (06:23→13:20)
[2018-06-18] MEDS: METRONIDAZOLE 500 MG/NS RTU 500 MG/100 ML RTUPB IV SCH ×2 (06:23→12:37)
[2018-06-18] MEDS: LANSOPRAZOLE 30 MG TAB.RAP.DR PO SCH ×2 (06:23→20:14)
[2018-06-18 06:37] LABS: HEMATOCRIT 31.7 % (36.0-47.0); HEMOGLOBIN 10.6 g/dL (12.0-15.5); MEAN CORPUSCULAR HEMOGLOBIN 29.5 pg (27.0-33.4); MEAN CORPUSCULAR HGB CONC 33.4 g/dL (32.0-36.0); MEAN CORPUSCULAR VOLUME 88 fl (80-97); PLATELET COUNT 172 10^3/uL (150-450); RED CELL DISTRIBUTION WIDTH 16.4 % (11.5-14.0); WHITE BLOOD COUNT 14.2 10^3/uL (4.0-10.5)
[2018-06-18] MEDS: LEVOTHYROXINE SODIUM 0.1 MG TABLET PO SCH (06:39)
[2018-06-18 06:54] LABS: ALANINE AMINOTRANSFERASE 27 U/L (9-52); ALBUMIN 2.2 g/dL (3.5-5.0); ALKALINE PHOSPHATASE 82 U/L (38-126); ANION GAP 11 (5-19); ASPARTATE AMINO TRANSFERASE 21 U/L (14-36); BILIRUBIN,DIRECT 0.3 mg/dL (0.0-0.4); BILIRUBIN,TOTAL 0.6 mg/dL (0.2-1.3); BLOOD UREA NITROGEN 19 mg/dL (7-20); CALCIUM 7.8 mg/dL (8.4-10.2); CARBON DIOXIDE 20 mmol/L (22-30); CHLORIDE 100 mmol/L (98-107); GLUCOSE 77 mg/dL (75-110); POTASSIUM 4.1 mmol/L (3.6-5.0); SODIUM 130.5 mmol/L (137-145); TOTAL PROTEIN 4.3 g/dL (6.3-8.2)
[2018-06-18 07:15] LABS: ABSOLUTE LYMPHOCYTES# (MANUAL) 1.3 10^3/uL (0.5-4.7); ABSOLUTE MONOCYTES # (MANUAL) 1.1 10^3/uL (0.1-1.4); ABSOLUTE NEUTROPHILS# (MANUAL) 11.8 10^3/uL (1.7-8.2); BASOPHILS % (MANUAL) 0 % (0-2); EOSINOPHILS % (MANUAL) 0 % (0-6); LYMPHOCYTES % (MANUAL) 9 % (13-45); MONOCYTES % (MANUAL) 8 % (3-13); SEGMENTED NEUTROPHILS % (MAN) 83 % (42-78); TOTAL CELLS COUNTED 100
[2018-06-18 07:17] LABS: ANISOCYTOSIS 1+; BURR CELLS 2+; OVALOCYTES 1+; PLATELET COMMENT ADEQUATE; POIKILOCYTOSIS 1+; TOXIC GRANULATION 1+; TOXIC VACUOLATION PRESENT
[2018-06-18 07:26] LABS: URINE CREATININE 70.4 mg/dL (15-278)
[2018-06-18 07:42] LABS: URINE SODIUM < 5 mmol/L (30-90)
[2018-06-18] MEDS ORDERED: MEGESTROL ACETATE 20 MG TABLET PO SCH ×2 (10:00→10:30)
[2018-06-18] MEDS: DOCUSATE SODIUM 100 MG CAPSULE PO SCH ×2 (10:10→20:14)
[2018-06-18] MEDS: AMLODIPINE BESYLATE 2.5 MG TABLET PO SCH (10:11)
[2018-06-18] MEDS: METOPROLOL TARTRATE 50 MG TABLET PO SCH (10:11)
[2018-06-18] MEDS ORDERED: NYSTATIN CREAM 15 GM TP SCH (12:00)
[2018-06-18] MEDS: PIPERACILLIN SODIUM/TAZOBACTAM 4.5 GM in NORMAL SALINE 100 ML IV SCH ×2 (12:37→20:27)
[2018-06-18] MEDS: NORMAL SALINE 1000 ML 1,000 ML IV PRN (12:38)
[2018-06-18] MEDS: ZINC OXIDE 20% OINTMENT 28.35 GM TP SCH (13:21)
[2018-06-18] MEDS ORDERED: VANCOMYCIN HCL 0 MG in DEXTROSE 5%-WATER 250 ML IV NR (14:45)
--- NOTE | 2018-06-18 14:51 | PDOC PROGRESS REPORT ---
Subjective Progress Note for:: 06/18/18 Subjective:: KHUSHI BARTLETT is a 88 year old female assisted living resident, with a past medical history of dementia, atrial fibrillation, hypertension, obesity, diabetes and chronic constipation. Patient presents 12 hours after evaluation in the emergency room for the same, with an unremarkable workup tolerating p.o. she was discharged home with instructions to follow-up with primary care. Symptoms have persisted and in the emergency room she is found to have fever, leukocytosis, abdominal pain and proctitis. She was started on empiric antibiotics of Levaquin and Flagyl. 06/15/2018. Overnight patient was complaining of shortness of breath and ABG was done which was unremarkable except for mild respiratory alkalosis. Patient was placed on BiPAP. On my encounter today patient is resting in bed complaining of shortness of breath however she is on room air and saturating fine. She does not seem to be in any acute distress. She is telling me that her abdominal pain has resolved however she has not had any bowel movement. She had a follow-up CT yesterday evening which did not show any obstruction. Gastroenterology has been following and they are not planning any intervention recommending patient to be started on a bowel regimen. She is denying any fever , chills, nausea, vomiting, diarrhea, chest pain or any urinary symptoms. 06/16/2018. No acute events overnight. Patient had a bowel movement yesterday. Upon my encounter patient is comfortably resting in her bed and she is stating that she is not short of breath anymore and her abdominal pain has resolved. Due to underlying severe dementia patient does not provide much detail about her activity in the hospital. When asked what she ate yesterday she does not remember and also she does not remember that she had a bowel movement yesterday. She denies any pain, shortness of breath, nausea, vomiting , diarrhea, abdominal pain, constipation, any urinary symptoms. 06/17/2018. Acute events overnight. Patient is awake and alert and cooperative with physical examination. She seen the shortness of breath has improved but she is having some abdominal pain. She does not remember if she ate last night or if she had a bowel movement. As per chart note patient has been having diarrhea. She denies any fever, chills, nausea, vomiting, constipation, shortness of breath or any chest pain. 06/18/2018. No acute events overnight. Patient is alert and awake resting comfortably in bed. She was not able to sleep last night but was able to get some sleep this morning. Patient does not have good appetite and she is refusing her meals. She states that her abdomen still hurts. Unfortunately patient has dementia and cannot provide a detailed history. Patient has history of external hemorrhoids and surgery was consulted for evaluation. Surgery recommendation was no intervention and supportive measures. Today as the nurse was cleaning up her rectal area they found the external hemorrhoid was expressing pus. I was called room by the nurse evaluate the patient it seems like she has an abscess on top of having external hemorrhoids. This could very well be the cause of her persistent leukocytosis. Reason For Visit: PROCTITIS CONSTIPATION Physical Exam Vital Signs: Temp Pulse Resp BP Pulse Ox 98.9 F 70 18 121/56 L 98 06/18/18 12:10 06/18/18 12:10 06/18/18 12:10 06/18/18 12:10 06/18/18 12:10 Intake & Output 06/17/18 06/18/18 06/19/18 06:59 06:59 06:59 Intake Total 2743 2554 1220 Output Total 525 875 200 Balance 2218 1679 1020 Weight 99.3 kg 106.2 kg Rectal exam: PRESENT: tenderness, other - abscess right above the verge of anal canal, fluctuant, tender to palpation and expressing pus. Results Laboratory Results: 06/18/18 06:04 06/18/18 06:04 06/17/18 06/18/18 06/18/18 16:05 06:04 06:04 WBC 14.2 H RBC 3.60 L Hgb 10.6 L Hct 31.7 L MCV 88 MCH 29.5 MCHC 33.4 RDW 16.4 H Plt Count 172 Seg Neutrophils % Not Reportable Lymphocytes % Not Reportable Monocytes % Not Reportable Eosinophils % Not Reportable Basophils % Not Reportable Absolute Neutrophils Not Reportable Absolute Lymphocytes Not Reportable Absolute Monocytes Not Reportable Absolute Eosinophils Not Reportable Absolute Basophils Not Reportable Sodium 130.5 L Potassium 4.1 Chloride 100 Carbon Dioxide 20 L Anion Gap 11 BUN 19 Creatinine 0.50 L Est GFR ( Amer) > 60 Est GFR (Non-Af Amer) > 60 Glucose 77 Calcium 7.8 L Total Bilirubin 0.6 AST 21 ALT 27 Alkaline Phosphatase 82 Total Protein 4.3 L Albumin 2.2 L Stool for White Cells NO WBCs SEEN Impressions: Acute Abdomen Series 06/13/18 00:00 IMPRESSION: Nonspecific abdomen. Possible ileus. Distended urinary bladder. Osseous findings as described. KUB X-Ray 06/13/18 23:52 IMPRESSION: 1. The tip of the feeding tube terminates in the left upper quadrant likely within the proximal stomach. The patient has a known moderate hiatal hernia. 2. Nonspecific nonobstructive bowel gas pattern. 3. Other incidental findings as described above. Abdomen/Pelvis CT 06/14/18 16:17 IMPRESSION: Oral contrast given for CT at 0200 hours 06/14/2018 is now seen in the colon, in a nonobstructive pattern. Assessment & Plan - Diagnosis (1) Perirectal abscess Is this a current diagnosis for this admission?: Yes Plan: External hemorrhoids complicated by perirectal abscess. Switched to vancomycin and Zosyn for empiric coverage. Pus was sent for culture. Consult surgery for I&D (2) Abdominal pain Qualifiers: Abdominal location: generalized Qualified Code(s): R10.84 - Generalized abdominal pain Is this a current diagnosis for this admission?: Yes Plan: Improving but has not resolved. CT abdomen with contrast on 06/14/2018 did not show any obstruction or mention of thickening of the bowel which makes diagnosis of proctitis unlikely however patient still has leukocytosis due to perirectal abscess. H&H is stable no blood per rectum. Continue empiric antibiotics. Continue stool softeners. Hold bowel regimen due to diarrhea. (3) Constipation Is this a current diagnosis for this admission?: Yes Plan: Resolved. Actually having diarrhea possibly due to aggressive treatment of her constipation. Hold bowel regimen. Encourage p.o. intake (4) Proctitis Is this a current diagnosis for this admission?: Yes Plan: CT abdomen and pelvis with oral contrast on 06/14/2018 negative for any obstruction or mention of any bowel thickening which makes proctitis unlikely. Rectal pain could be actually due to perirectal abscess and external hemorrhoids. Switch antibiotics to Vanco and Zosyn for empiric coverage. (5) Atrial fibrillation and flutter Is this a current diagnosis for this admission?: No Plan: Currently rate controlled. Continue beta-blockers. Continue DVT prophylaxis. Patient is not on chronic anticoagulation due to previous complications of anticoagulation therapy as per family. Patient family was counseled about the risk and benefits of chronic anticoagulation. (6) Chronic lymphocytic leukemia Is this a current diagnosis for this admission?: No Plan: In remission. Outpatient oncology follow-up. (7) Hypertension Qualifiers: Hypertension type: essential hypertension Qualified Code(s): I10 - Essential (primary) hypertension Is this a current diagnosis for this admission?: No Plan: Normotensive, euvolemic. Restart home meds. Adjust meds as needed. (8) Hyperlipidemia Qualifiers: Hyperlipidemia type: unspecified Qualified Code(s): E78.5 - Hyperlipidemia , unspecified Is this a current diagnosis for this admission?: No Plan: Continue statins. (9) Hypothyroidism Qualifiers: Hypothyroidism type: acquired Qualified Code(s): E03.9 - Hypothyroidism, unspecified Is this a current diagnosis for this admission?: No Plan: Restart levothyroxine. TSH 1.66. (10) Diarrhea Qualifiers: Diarrhea type: unspecified type Qualified Code(s): R19.7 - Diarrhea, unspecified Is this a current diagnosis for this admission?: Yes Plan: Improving. Possibly to aggressive treatment of underlying constipation. Hold bowel regimen encourage p.o. intake. Stool workup to rule out any infectious diarrhea. C. difficile toxin negative. (11) External hemorrhoid Is this a current diagnosis for this admission?: Yes Plan: As per surgery note grade 2 through 3 hemorrhoids that are easily reducible possibly exacerbated by diarrhea. No surgical intervention advised at this point. We will continue to manage underlying diarrhea and wound care. Refer to consult note. (12) Hyponatremia Is this a current diagnosis for this admission?: Yes Plan: Acute hypovolemic hyponatremia. Urine Na <10, FeNA X,1%. Likely due to underlying diarrhea. Encourage p.o. intake. Continue normal saline. CMP tomorrow.
--- NOTE | 2018-06-18 15:24 | PDOC PROGRESS REPORT ---
Subjective Progress Note for:: 06/18/18 Subjective:: patient confused and c/o multiple pains and aches; tolerating po well Reason For Visit: PROCTITIS CONSTIPATION Physical Exam Vital Signs: Temp Pulse Resp BP Pulse Ox 98.9 F 70 18 121/56 L 98 06/18/18 12:10 06/18/18 12:10 06/18/18 12:10 06/18/18 12:10 06/18/18 12:10 Intake & Output 06/17/18 06/18/18 06/19/18 06:59 06:59 06:59 Intake Total 2743 2554 1220 Output Total 525 875 200 Balance 2218 1679 1020 Weight 99.3 kg 106.2 kg General appearance: PRESENT: mild distress, other - obese Respiratory exam: PRESENT: clear to auscultation carmela Cardiovascular exam: PRESENT: RRR GI/Abdominal exam: PRESENT: hernia - umbilical, reducible, soft - obese Rectal exam: PRESENT: other - large area of perianal erythema with actively purulent drainage on the right, area extrermely tender on palpation, multiple areas of skin escoriation Neurological exam: PRESENT: alert Psychiatric exam: PRESENT: anxious, other - disoriented by situation Results Laboratory Results: 06/18/18 06:04 06/18/18 06:04 06/17/18 06/18/18 06/18/18 16:05 06:04 06:04 WBC 14.2 H RBC 3.60 L Hgb 10.6 L Hct 31.7 L MCV 88 MCH 29.5 MCHC 33.4 RDW 16.4 H Plt Count 172 Seg Neutrophils % Not Reportable Lymphocytes % Not Reportable Monocytes % Not Reportable Eosinophils % Not Reportable Basophils % Not Reportable Absolute Neutrophils Not Reportable Absolute Lymphocytes Not Reportable Absolute Monocytes Not Reportable Absolute Eosinophils Not Reportable Absolute Basophils Not Reportable Sodium 130.5 L Potassium 4.1 Chloride 100 Carbon Dioxide 20 L Anion Gap 11 BUN 19 Creatinine 0.50 L Est GFR ( Amer) > 60 Est GFR (Non-Af Amer) > 60 Glucose 77 Calcium 7.8 L Total Bilirubin 0.6 AST 21 ALT 27 Alkaline Phosphatase 82 Total Protein 4.3 L Albumin 2.2 L Stool for White Cells NO WBCs SEEN Impressions: Acute Abdomen Series 06/13/18 00:00 IMPRESSION: Nonspecific abdomen. Possible ileus. Distended urinary bladder. Osseous findings as described. KUB X-Ray 06/13/18 23:52 IMPRESSION: 1. The tip of the feeding tube terminates in the left upper quadrant likely within the proximal stomach. The patient has a known moderate hiatal hernia. 2. Nonspecific nonobstructive bowel gas pattern. 3. Other incidental findings as described above. Abdomen/Pelvis CT 06/14/18 16:17 IMPRESSION: Oral contrast given for CT at 0200 hours 06/14/2018 is now seen in the colon, in a nonobstructive pattern. Assessment & Plan - Diagnosis (1) Perirectal abscess Is this a current diagnosis for this admission?: Yes - Plan Summary Plan Summary: A/ Patient recently has become more confused and this is cause of concern to Hospitalist and staff Recent spike in WBC, 14.6 today (16K yesterday) Physical exam shows an actively draining site with pus located in the perianum as per perirectal abscess P/ Rigid proctosigmoidoscopy and I&D of perirectal abscess Procedure, risks, benefits, complications discussed with the daughter, her questions were answered, and she gave consent for her mother. Risk of aspiration d/w the Anesthesiologist information technology technician as the patient has had full liquid lunch at 1:00 pm today; however, the deterioration of the mental status and her age are legitimate considerations and raise concerns which should prompt to declare the surgery an emergency with all inherent risks, including the possibility of perioperative aspiration, stroke, and or . NPO preop EKG Continue current IV abx
[2018-06-18] MEDS ORDERED: MIDAZOLAM 2 MG/2 ML INJ ONE (15:37)
[2018-06-18] MEDS ORDERED: FENTANYL CITRATE INJ/PF 100 MCG/2 ML AMPUL ONE (15:37)
[2018-06-18] MEDS ORDERED: PROPOFOL INJ 200 MG/20 ML VIAL IV ONE (15:38)
[2018-06-18] MEDS ORDERED: SUCCINYLCHOLINE CHLORIDE INJ 200 MG/10 ML VIAL ONE (16:00)
[2018-06-18] MEDS ORDERED: MORPHINE SULFATE 10 MG/ML INJ IV PRN (16:25)
[2018-06-18] MEDS ORDERED: FENTANYL CITRATE INJ/PF 100 MCG/2 ML AMPUL IV PRN ×3 (16:25)
[2018-06-18] MEDS ORDERED: PROMETHAZINE HCL INJ 25 MG/1 ML VIAL IV PRN (16:25)
[2018-06-18] MEDS ORDERED: THROMBIN (BOVINE) TOPICAL 5000 UNIT VIAL ONE (16:48)
[2018-06-18] MEDS ORDERED: VANCOMYCIN HCL 1,000 MG in DEXTROSE 5%-WATER 250 ML IV SCH (18:00)
--- NOTE | 2018-06-18 18:03 | Operative Report ---
Nonrecallable Operative Report DATE OF SURGERY: 06/18/18 PREOPERATIVE DIAGNOSIS: Purulent drainage from perainal skin. Perianal inflammation POSTOPERATIVE DIAGNOSIS: same. Left > right perianal abscesses. rectocutaneous fistula x 2. upper midline peranal abscess OPERATION: rigid proctosigmoidiscopy. Drainage of perianal abscess x 3. parianal tissue biopsy x 1. left abscess tissue biopsy x 1 SURGEON: XENA CHRISTIAN ANESTHESIA: GA TISSUE REMOVED OR ALTERED: perianum tissue and left rectal abscess tissue COMPLICATIONS: none ESTIMATED BLOOD LOSS: 50 mL INTRAOPERATIVE FINDINGS: severe erythema of perianum. 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 upper midline perirectal abscess. left greater than right perirectal abscess PROCEDURE: see dictation
[2018-06-18] MEDS ORDERED: ONDANSETRON ODT 4 MG TAB (6 TAB/ER DISP) PO PRN (18:41)
[2018-06-18] MEDS ORDERED: POLYETHYLENE GLYCOL 3350 POWDER 17 GM/1 PACKET PO PRN (18:41)
[2018-06-18] MEDS ORDERED: ACETAMINOPHEN SOLN 325 MG/10.15 ML UDCUP PO ONE (19:00)
[2018-06-18] MEDS ORDERED: NYSTATIN OINTMENT 15 GM TUBE TP ONE (19:00)
[2018-06-18] MEDS: VANCOMYCIN HCL 1,000 MG in DEXTROSE 5%-WATER 250 ML IV SCH (21:11)
--- NOTE | 2018-06-18 21:47 | EKG REPORT ---
SEVERITY:- ABNORMAL ECG - VENTRICULAR-PACED RHYTHM : Confirmed by: Cong Rojas MD 18-Jun-2018 21:46:57
[2018-06-18] MEDS ORDERED: BUSPIRONE HCL 10 MG TABLET PO SCH (22:00)
[2018-06-19] MEDS: NORMAL SALINE 1000 ML 1,000 ML IV PRN ×2 (00:13→13:30)
[2018-06-19] MEDS: FENTANYL CITRATE INJ/PF 100 MCG/2 ML AMPUL IV PRN (00:15)
[2018-06-19] MEDS: METOPROLOL TARTRATE 50 MG TABLET PO SCH ×3 (00:33→21:26)
[2018-06-19] MEDS: PIPERACILLIN SODIUM/TAZOBACTAM 4.5 GM in NORMAL SALINE 100 ML IV SCH ×4 (00:33→18:02)
[2018-06-19] MEDS: OXYCODONE-ACETAMINOPHEN 5-325 MG TABLET PO PRN ×4 (00:34→20:05)
[2018-06-19 05:21] LABS: HEMOGLOBIN 10.6 g/dL (12.0-15.5); MEAN CORPUSCULAR HEMOGLOBIN 29.4 pg (27.0-33.4); MEAN CORPUSCULAR HGB CONC 33.3 g/dL (32.0-36.0); MEAN CORPUSCULAR VOLUME 88 fl (80-97); PLATELET COUNT 159 10^3/uL (150-450); RED BLOOD COUNT 3.62 10^6/uL (3.72-5.28); RED CELL DISTRIBUTION WIDTH 16.7 % (11.5-14.0); WHITE BLOOD COUNT 12.6 10^3/uL (4.0-10.5)
[2018-06-19 05:41] LABS: ANION GAP 8 (5-19); BLOOD UREA NITROGEN 14 mg/dL (7-20); CALCIUM 7.7 mg/dL (8.4-10.2); CARBON DIOXIDE 20 mmol/L (22-30); CHLORIDE 105 mmol/L (98-107); GLUCOSE 94 mg/dL (75-110); POTASSIUM 4.3 mmol/L (3.6-5.0); SODIUM 133.2 mmol/L (137-145)
[2018-06-19 05:56] LABS: ABSOLUTE LYMPHOCYTES# (MANUAL) 1.9 10^3/uL (0.5-4.7); ABSOLUTE MONOCYTES # (MANUAL) 0.9 10^3/uL (0.1-1.4); ABSOLUTE NEUTROPHILS# (MANUAL) 9.8 10^3/uL (1.7-8.2); BASOPHILS % (MANUAL) 0 % (0-2); EOSINOPHILS % (MANUAL) 0 % (0-6); LYMPHOCYTES % (MANUAL) 15 % (13-45); MONOCYTES % (MANUAL) 7 % (3-13); SEGMENTED NEUTROPHILS % (MAN) 78 % (42-78); TOTAL CELLS COUNTED 100
[2018-06-19 05:57] LABS: ANISOCYTOSIS 1+; HYPOCHROMASIA 1+; PLATELET COMMENT ADEQUATE; POLYCHROMASIA 1+
[2018-06-19] MEDS: VANCOMYCIN HCL 1,000 MG in DEXTROSE 5%-WATER 250 ML IV SCH ×2 (06:26→18:02)
[2018-06-19] MEDS: LANSOPRAZOLE 30 MG TAB.RAP.DR PO SCH ×2 (06:27)
[2018-06-19] MEDS: LEVOTHYROXINE SODIUM 0.1 MG TABLET PO SCH (06:27)
[2018-06-19] MEDS ORDERED: FUROSEMIDE 20 MG TABLET PO SCH (08:00)
[2018-06-19] MEDS ORDERED: ONDANSETRON 4 MG TAB.RAPDIS PO PRN (08:17)
--- NOTE | 2018-06-19 09:40 | PDOC PROGRESS REPORT ---
Subjective Progress Note for:: 06/19/18 Subjective:: KHUSHI BARTLETT is a 88 year old female assisted living resident, with a past medical history of dementia, atrial fibrillation, hypertension, obesity, diabetes and chronic constipation. Patient presents 12 hours after evaluation in the emergency room for the same, with an unremarkable workup tolerating p.o. she was discharged home with instructions to follow-up with primary care. Symptoms have persisted and in the emergency room she is found to have fever, leukocytosis, abdominal pain and proctitis. She was started on empiric antibiotics of Levaquin and Flagyl. 06/15/2018. Overnight patient was complaining of shortness of breath and ABG was done which was unremarkable except for mild respiratory alkalosis. Patient was placed on BiPAP. On my encounter today patient is resting in bed complaining of shortness of breath however she is on room air and saturating fine. She does not seem to be in any acute distress. She is telling me that her abdominal pain has resolved however she has not had any bowel movement. She had a follow-up CT yesterday evening which did not show any obstruction. Gastroenterology has been following and they are not planning any intervention recommending patient to be started on a bowel regimen. She is denying any fever , chills, nausea, vomiting, diarrhea, chest pain or any urinary symptoms. 06/16/2018. No acute events overnight. Patient had a bowel movement yesterday. Upon my encounter patient is comfortably resting in her bed and she is stating that she is not short of breath anymore and her abdominal pain has resolved. Due to underlying severe dementia patient does not provide much detail about her activity in the hospital. When asked what she ate yesterday she does not remember and also she does not remember that she had a bowel movement yesterday. She denies any pain, shortness of breath, nausea, vomiting , diarrhea, abdominal pain, constipation, any urinary symptoms. 06/17/2018. No acute events overnight. Patient is awake and alert and cooperative with physical examination. She seen the shortness of breath has improved but she is having some abdominal pain. She does not remember if she ate last night or if she had a bowel movement. As per chart note patient has been having diarrhea. She denies any fever, chills, nausea, vomiting, constipation, shortness of breath or any chest pain. Reason For Visit: PROCTITIS CONSTIPATION Physical Exam Vital Signs: Temp Pulse Resp BP Pulse Ox 98.0 F 70 16 130/65 H 93 06/19/18 07:29 06/19/18 08:35 06/19/18 08:35 06/19/18 07:29 06/19/18 08:35 Intake & Output 06/18/18 06/19/18 06/20/18 06:59 06:59 06:59 Intake Total 2554 6984 Output Total 559 7989 Balance 1673 3159 Weight 106.2 kg 107.7 kg Results Laboratory Results: 06/19/18 05:00 06/19/18 05:00 06/18/18 06/19/18 06/19/18 15:44 05:00 05:00 WBC 12.6 H RBC 3.62 L Hgb 10.6 L Hct 32.0 L MCV 88 MCH 29.4 MCHC 33.3 RDW 16.7 H Plt Count 159 Seg Neutrophils % Not Reportable Lymphocytes % Not Reportable Monocytes % Not Reportable Eosinophils % Not Reportable Basophils % Not Reportable Absolute Neutrophils Not Reportable Absolute Lymphocytes Not Reportable Absolute Monocytes Not Reportable Absolute Eosinophils Not Reportable Absolute Basophils Not Reportable Sodium 133.2 L Potassium 4.3 Chloride 105 Carbon Dioxide 20 L Anion Gap 8 BUN 14 Creatinine 0.39 L Est GFR ( Amer) > 60 Est GFR (Non-Af Amer) > 60 Glucose 94 Calcium 7.7 L C-Reactive Protein 269.1 H Impressions: Acute Abdomen Series 06/13/18 00:00 IMPRESSION: Nonspecific abdomen. Possible ileus. Distended urinary bladder. Osseous findings as described. KUB X-Ray 06/13/18 23:52 IMPRESSION: 1. The tip of the feeding tube terminates in the left upper quadrant likely within the proximal stomach. The patient has a known moderate hiatal hernia. 2. Nonspecific nonobstructive bowel gas pattern. 3. Other incidental findings as described above. Abdomen/Pelvis CT 06/14/18 16:17 IMPRESSION: Oral contrast given for CT at 0200 hours 06/14/2018 is now seen in the colon, in a nonobstructive pattern. Assessment & Plan - Diagnosis (1) Abdominal pain Qualifiers: Abdominal location: generalized Qualified Code(s): R10.84 - Generalized abdominal pain Is this a current diagnosis for this admission?: Yes (2) Constipation Is this a current diagnosis for this admission?: Yes (3) Proctitis Is this a current diagnosis for this admission?: Yes (4) Atrial fibrillation and flutter Is this a current diagnosis for this admission?: No (5) Chronic lymphocytic leukemia Is this a current diagnosis for this admission?: No (6) Hypertension Qualifiers: Hypertension type: essential hypertension Qualified Code(s): I10 - Essential (primary) hypertension Is this a current diagnosis for this admission?: No (7) Hyperlipidemia Qualifiers: Hyperlipidemia type: unspecified Qualified Code(s): E78.5 - Hyperlipidemia , unspecified Is this a current diagnosis for this admission?: No (8) Hypothyroidism Qualifiers: Hypothyroidism type: acquired Qualified Code(s): E03.9 - Hypothyroidism, unspecified Is this a current diagnosis for this admission?: No (9) Diarrhea Qualifiers: Diarrhea type: unspecified type Qualified Code(s): R19.7 - Diarrhea, unspecified Is this a current diagnosis for this admission?: Yes (10) External hemorrhoid Is this a current diagnosis for this admission?: Yes (11) Hyponatremia Is this a current diagnosis for this admission?: Yes Plan: Acute hyponatremia. Likely due to underlying diarrhea. Encourage p.o. intake. Continue normal saline. CMP tomorrow.
[2018-06-19] MEDS: DOCUSATE SODIUM 100 MG CAPSULE PO SCH ×2 (09:42→18:02)
[2018-06-19] MEDS: MEGESTROL ACETATE 20 MG TABLET PO SCH (09:43)
[2018-06-19] MEDS: ZINC OXIDE 20% OINTMENT 28.35 GM TP SCH (09:44)
--- NOTE | 2018-06-19 09:50 | PDOC PROGRESS REPORT ---
Subjective Progress Note for:: 06/19/18 Subjective:: KHUSHI BARTLETT is a 88 year old female assisted living resident, with a past medical history of dementia, atrial fibrillation, hypertension, obesity, diabetes and chronic constipation. Patient presents 12 hours after evaluation in the emergency room for the same, with an unremarkable workup tolerating p.o. she was discharged home with instructions to follow-up with primary care. Symptoms have persisted and in the emergency room she is found to have fever, leukocytosis, abdominal pain and proctitis. She was started on empiric antibiotics of Levaquin and Flagyl. 06/15/2018. Overnight patient was complaining of shortness of breath and ABG was done which was unremarkable except for mild respiratory alkalosis. Patient was placed on BiPAP. On my encounter today patient is resting in bed complaining of shortness of breath however she is on room air and saturating fine. She does not seem to be in any acute distress. She is telling me that her abdominal pain has resolved however she has not had any bowel movement. She had a follow-up CT yesterday evening which did not show any obstruction. Gastroenterology has been following and they are not planning any intervention recommending patient to be started on a bowel regimen. She is denying any fever , chills, nausea, vomiting, diarrhea, chest pain or any urinary symptoms. 06/16/2018. No acute events overnight. Patient had a bowel movement yesterday. Upon my encounter patient is comfortably resting in her bed and she is stating that she is not short of breath anymore and her abdominal pain has resolved. Due to underlying severe dementia patient does not provide much detail about her activity in the hospital. When asked what she ate yesterday she does not remember and also she does not remember that she had a bowel movement yesterday. She denies any pain, shortness of breath, nausea, vomiting , diarrhea, abdominal pain, constipation, any urinary symptoms. 06/17/2018. Acute events overnight. Patient is awake and alert and cooperative with physical examination. She seen the shortness of breath has improved but she is having some abdominal pain. She does not remember if she ate last night or if she had a bowel movement. As per chart note patient has been having diarrhea. She denies any fever, chills, nausea, vomiting, constipation, shortness of breath or any chest pain. 06/18/2018. No acute events overnight. Patient is alert and awake resting comfortably in bed. She was not able to sleep last night but was able to get some sleep this morning. Patient does not have good appetite and she is refusing her meals. She states that her abdomen still hurts. Unfortunately patient has dementia and cannot provide a detailed history. Patient has history of external hemorrhoids and surgery was consulted for evaluation. Surgery recommendation was no intervention and supportive measures. Today as the nurse was cleaning up her rectal area they found the external hemorrhoid was expressing pus. I was called room by the nurse evaluate the patient it seems like she has an abscess on top of having external hemorrhoids. This could very well be the cause of her persistent leukocytosis. 06/19/2018. 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 On my encounter patient is comfortably resting in bed. When asked if she is hurting anywhere she is a diet and now, and when asked if she had a good night sleep or she H she still says I do not know. Unfortunately patient has severe dementia and cannot provide a good history as per nurses report she has been calm overnight and was able to sleep. The is p.o. tolerant and prefers her Ensure. Patient denies any fever, chills, nausea, vomiting, diarrhea, constipation or any urinary symptoms. Reason For Visit: PROCTITIS CONSTIPATION Physical Exam Vital Signs: Temp Pulse Resp BP Pulse Ox 98.0 F 70 16 130/65 H 93 06/19/18 07:29 06/19/18 08:35 06/19/18 08:35 06/19/18 07:29 06/19/18 08:35 Intake & Output 06/18/18 06/19/18 06/20/18 06:59 06:59 06:59 Intake Total 2554 5984 Output Total 747 8095 Balance 1674 3159 Weight 106.2 kg 107.7 kg General appearance: PRESENT: no acute distress, well-developed, well-nourished Head exam: PRESENT: atraumatic, normocephalic Respiratory exam: PRESENT: clear to auscultation carmela. ABSENT: rales, rhonchi, wheezes Cardiovascular exam: PRESENT: RRR. ABSENT: diastolic murmur, rubs, systolic murmur GI/Abdominal exam: PRESENT: distended, normal bowel sounds, soft. ABSENT: guarding, mass, organolmegaly, rebound, tenderness Skin exam: PRESENT: other - Status post rectocutaneous fistula and abscess I&D. Wound is covered with dressing no sign of discharge or erythema around dressing. Results Laboratory Results: 06/19/18 05:00 06/19/18 05:00 06/18/18 06/19/18 06/19/18 15:44 05:00 05:00 WBC 12.6 H RBC 3.62 L Hgb 10.6 L Hct 32.0 L MCV 88 MCH 29.4 MCHC 33.3 RDW 16.7 H Plt Count 159 Seg Neutrophils % Not Reportable Lymphocytes % Not Reportable Monocytes % Not Reportable Eosinophils % Not Reportable Basophils % Not Reportable Absolute Neutrophils Not Reportable Absolute Lymphocytes Not Reportable Absolute Monocytes Not Reportable Absolute Eosinophils Not Reportable Absolute Basophils Not Reportable Sodium 133.2 L Potassium 4.3 Chloride 105 Carbon Dioxide 20 L Anion Gap 8 BUN 14 Creatinine 0.39 L Est GFR ( Amer) > 60 Est GFR (Non-Af Amer) > 60 Glucose 94 Calcium 7.7 L C-Reactive Protein 269.1 H Impressions: Acute Abdomen Series 06/13/18 00:00 IMPRESSION: Nonspecific abdomen. Possible ileus. Distended urinary bladder. Osseous findings as described. KUB X-Ray 06/13/18 23:52 IMPRESSION: 1. The tip of the feeding tube terminates in the left upper quadrant likely within the proximal stomach. The patient has a known moderate hiatal hernia. 2. Nonspecific nonobstructive bowel gas pattern. 3. Other incidental findings as described above. Abdomen/Pelvis CT 06/14/18 16:17 IMPRESSION: Oral contrast given for CT at 0200 hours 06/14/2018 is now seen in the colon, in a nonobstructive pattern. 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 Status post I& D. Raising the question of possible inflammatory bowel disease. Pending biopsy. Wound care and pain management. Continue empiric antibiotics follow wound culture. (2) Abdominal pain Qualifiers: Abdominal location: generalized Qualified Code(s): R10.84 - Generalized abdominal pain Is this a current diagnosis for this admission?: Yes Plan: Resolved. CT abdomen with contrast on 06/14/2018 did not show any obstruction or mention of thickening of the bowel which makes diagnosis of proctitis unlikely leukocytosis improving. H&H is stable no blood per rectum. Continue empiric antibiotics. Continue stool softeners. Hold bowel regimen due to diarrhea. (3) Constipation Is this a current diagnosis for this admission?: Yes Plan: Resolved. Actually having diarrhea possibly due to aggressive treatment of her constipation. Hold bowel regimen. Encourage p.o. intake (4) Proctitis Is this a current diagnosis for this admission?: Yes Plan: CT abdomen and pelvis with oral contrast on 06/14/2018 negative for any obstruction or mention of any bowel thickening which makes proctitis unlikely. Leukocytosis improving. Continue empiric antibiotics. Cultures negative so far. (5) Atrial fibrillation and flutter Is this a current diagnosis for this admission?: No Plan: Currently rate controlled. Continue beta-blockers. Continue DVT prophylaxis. Patient is not on chronic anticoagulation due to previous complications of anticoagulation therapy as per family. Patient family was counseled about the risk and benefits of chronic anticoagulation. (6) Chronic lymphocytic leukemia Is this a current diagnosis for this admission?: No Plan: In remission. Outpatient oncology follow-up. (7) Hypertension Qualifiers: Hypertension type: essential hypertension Qualified Code(s): I10 - Essential (primary) hypertension Is this a current diagnosis for this admission?: No Plan: Normotensive, euvolemic. Restart home meds. Adjust meds as needed. (8) Hyperlipidemia Qualifiers: Hyperlipidemia type: unspecified Qualified Code(s): E78.5 - Hyperlipidemia , unspecified Is this a current diagnosis for this admission?: No Plan: Continue statins. (9) Hypothyroidism Qualifiers: Hypothyroidism type: acquired Qualified Code(s): E03.9 - Hypothyroidism, unspecified Is this a current diagnosis for this admission?: No Plan: Restart levothyroxine. TSH 1.66. (10) Diarrhea Qualifiers: Diarrhea type: unspecified type Qualified Code(s): R19.7 - Diarrhea, unspecified Is this a current diagnosis for this admission?: Yes Plan: Resolved. Possibly to aggressive treatment of underlying constipation. Hold bowel regimen encourage p.o. intake. Stool workup to rule out any infectious diarrhea. C. difficile toxin negative. (11) External hemorrhoid Is this a current diagnosis for this admission?: Yes Plan: As per problem #1. (12) Hyponatremia Is this a current diagnosis for this admission?: Yes Plan: Improving. Acute hypovolemic hyponatremia. Urine Na <10, FeNA X,1%. Likely due to underlying diarrhea. Encourage p.o. intake. Continue normal saline. CMP tomorrow.
[2018-06-19] MEDS ORDERED: AMLODIPINE BESYLATE 5 MG TABLET PO SCH (10:00)
[2018-06-19] MEDS ORDERED: CAMPHOR TP SCH (10:00)
[2018-06-19] MEDS ORDERED: NYSTATIN OINTMENT 15 GM TUBE TP SCH (10:00)
[2018-06-19] MEDS ORDERED: ACETAMINOPHEN SOLN 325 MG/10.15 ML UDCUP PO SCH (10:00)
[2018-06-19] MEDS ORDERED: MENTHOL TP SCH (10:00)
[2018-06-19] MEDS: NYSTATIN CREAM 15 GM TP SCH (11:34)
--- NOTE | 2018-06-19 13:03 | PDOC PROGRESS REPORT ---
Subjective Progress Note for:: 06/19/18 Subjective:: comfortable Reason For Visit: PROCTITIS CONSTIPATION Physical Exam Vital Signs: Temp Pulse Resp BP Pulse Ox 98.0 F 70 16 130/65 H 93 06/19/18 07:29 06/19/18 08:35 06/19/18 08:35 06/19/18 07:29 06/19/18 08:35 Intake & Output 06/18/18 06/19/18 06/20/18 06:59 06:59 06:59 Intake Total 2557 6924 543 Output Total 878 0325 Balance 1508 3159 543 Weight 106.2 kg 107.7 kg General appearance: PRESENT: no acute distress Rectal exam: PRESENT: other - Perianum: surgery site clean, violaceous discoloration, Virgie drains in place, no drainage, no odor, minimal tenderness Results Laboratory Results: 06/19/18 05:00 06/19/18 05:00 06/18/18 06/19/18 06/19/18 15:44 05:00 05:00 WBC 12.6 H RBC 3.62 L Hgb 10.6 L Hct 32.0 L MCV 88 MCH 29.4 MCHC 33.3 RDW 16.7 H Plt Count 159 Seg Neutrophils % Not Reportable Lymphocytes % Not Reportable Monocytes % Not Reportable Eosinophils % Not Reportable Basophils % Not Reportable Absolute Neutrophils Not Reportable Absolute Lymphocytes Not Reportable Absolute Monocytes Not Reportable Absolute Eosinophils Not Reportable Absolute Basophils Not Reportable Sodium 133.2 L Potassium 4.3 Chloride 105 Carbon Dioxide 20 L Anion Gap 8 BUN 14 Creatinine 0.39 L Est GFR ( Amer) > 60 Est GFR (Non-Af Amer) > 60 Glucose 94 Calcium 7.7 L C-Reactive Protein 269.1 H Impressions: Acute Abdomen Series 06/13/18 00:00 IMPRESSION: Nonspecific abdomen. Possible ileus. Distended urinary bladder. Osseous findings as described. KUB X-Ray 06/13/18 23:52 IMPRESSION: 1. The tip of the feeding tube terminates in the left upper quadrant likely within the proximal stomach. The patient has a known moderate hiatal hernia. 2. Nonspecific nonobstructive bowel gas pattern. 3. Other incidental findings as described above. Abdomen/Pelvis CT 06/14/18 16:17 IMPRESSION: Oral contrast given for CT at 0200 hours 06/14/2018 is now seen in the colon, in a nonobstructive pattern. 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 - Plan Summary Plan Summary: A/ POD#1 after drainage of perirectal abscesses x 3 and placement of drains Hx of rectal abscesses and rectocutaneous fistulas VSS, AF Improved mentation WBC decreased to 12.6K from 14.2 yesterday Intraoperative cultures positive for GPC, ID/Sens pending No stool incontinence noted P/ Remove packing today BID rectal abscess cavity irrigation with NS Apply Desitan cream to perianum liberally Continue IV Vanco/Zosyn Patient can be discharged by the General Surgery viewpoint during the next 2-3 days once cx results are available No plans for diverting colostomy at this point, as no stools soilage noted during dressing changes and no stool incontinence has been reported by the nurses
[2018-06-20] MEDS: PIPERACILLIN SODIUM/TAZOBACTAM 4.5 GM in NORMAL SALINE 100 ML IV SCH ×5 (00:52→23:17)
[2018-06-20] MEDS: OXYCODONE-ACETAMINOPHEN 5-325 MG TABLET PO PRN ×3 (01:56→17:20)
[2018-06-20] MEDS: LEVOTHYROXINE SODIUM 0.1 MG TABLET PO SCH (06:03)
[2018-06-20] MEDS: LANSOPRAZOLE 30 MG TAB.RAP.DR PO SCH (06:04)
[2018-06-20 07:02] LABS: HEMATOCRIT 31.7 % (36.0-47.0); HEMOGLOBIN 10.4 g/dL (12.0-15.5); MEAN CORPUSCULAR HEMOGLOBIN 28.8 pg (27.0-33.4); MEAN CORPUSCULAR HGB CONC 32.7 g/dL (32.0-36.0); MEAN CORPUSCULAR VOLUME 88 fl (80-97); PLATELET COUNT 213 10^3/uL (150-450); RED CELL DISTRIBUTION WIDTH 16.9 % (11.5-14.0); WHITE BLOOD COUNT 15.3 10^3/uL (4.0-10.5)
[2018-06-20 07:17] LABS: VANCOMYCIN,TROUGH 8.5 ug/mL (5.0-20.0)
[2018-06-20 07:18] LABS: ALANINE AMINOTRANSFERASE 22 U/L (9-52); ALBUMIN 2.2 g/dL (3.5-5.0); ALKALINE PHOSPHATASE 72 U/L (38-126); ANION GAP 8 (5-19); ASPARTATE AMINO TRANSFERASE 19 U/L (14-36); BILIRUBIN,DIRECT 0.3 mg/dL (0.0-0.4); BILIRUBIN,TOTAL 0.6 mg/dL (0.2-1.3); BLOOD UREA NITROGEN 12 mg/dL (7-20); CALCIUM 7.8 mg/dL (8.4-10.2); CARBON DIOXIDE 22 mmol/L (22-30); CHLORIDE 103 mmol/L (98-107); GLUCOSE 99 mg/dL (75-110); POTASSIUM 3.6 mmol/L (3.6-5.0); SODIUM 133.2 mmol/L (137-145); TOTAL PROTEIN 4.3 g/dL (6.3-8.2)
[2018-06-20 07:49] LABS: ABSOLUTE LYMPHOCYTES# (MANUAL) 2.9 10^3/uL (0.5-4.7); ABSOLUTE MONOCYTES # (MANUAL) 0.8 10^3/uL (0.1-1.4); ABSOLUTE NEUTROPHILS# (MANUAL) 11.6 10^3/uL (1.7-8.2); ANISOCYTOSIS 1+; BASOPHILS % (MANUAL) 0 % (0-2); EOSINOPHILS % (MANUAL) 0 % (0-6); HYPOCHROMASIA SLIGHT; LYMPHOCYTES % (MANUAL) 18 % (13-45); MONOCYTES % (MANUAL) 5 % (3-13); PLATELET COMMENT ADEQUATE; POLYCHROMASIA SLIGHT; SEGMENTED NEUTROPHILS % (MAN) 76 % (42-78); TOTAL CELLS COUNTED 100; TOXIC GRANULATION 3+; TOXIC VACUOLATION PRESENT
[2018-06-20] MEDS: VANCOMYCIN HCL 1,000 MG in DEXTROSE 5%-WATER 250 ML IV SCH (08:17)
--- NOTE | 2018-06-20 08:43 | PDOC PROGRESS REPORT ---
Subjective Progress Note for:: 06/20/18 Subjective:: KHUSHI BARTLETT is a 88 year old female assisted living resident, with a past medical history of dementia, atrial fibrillation, hypertension, obesity, diabetes and chronic constipation. Patient presents 12 hours after evaluation in the emergency room for the same, with an unremarkable workup tolerating p.o. she was discharged home with instructions to follow-up with primary care. Symptoms have persisted and in the emergency room she is found to have fever, leukocytosis, abdominal pain and proctitis. She was started on empiric antibiotics of Levaquin and Flagyl. 06/15/2018. Overnight patient was complaining of shortness of breath and ABG was done which was unremarkable except for mild respiratory alkalosis. Patient was placed on BiPAP. On my encounter today patient is resting in bed complaining of shortness of breath however she is on room air and saturating fine. She does not seem to be in any acute distress. She is telling me that her abdominal pain has resolved however she has not had any bowel movement. She had a follow-up CT yesterday evening which did not show any obstruction. Gastroenterology has been following and they are not planning any intervention recommending patient to be started on a bowel regimen. She is denying any fever , chills, nausea, vomiting, diarrhea, chest pain or any urinary symptoms. 06/16/2018. No acute events overnight. Patient had a bowel movement yesterday. Upon my encounter patient is comfortably resting in her bed and she is stating that she is not short of breath anymore and her abdominal pain has resolved. Due to underlying severe dementia patient does not provide much detail about her activity in the hospital. When asked what she ate yesterday she does not remember and also she does not remember that she had a bowel movement yesterday. She denies any pain, shortness of breath, nausea, vomiting , diarrhea, abdominal pain, constipation, any urinary symptoms. 06/17/2018. No acute events overnight. Patient is awake and alert and cooperative with physical examination. She seen the shortness of breath has improved but she is having some abdominal pain. She does not remember if she ate last night or if she had a bowel movement. As per chart note patient has been having diarrhea. She denies any fever, chills, nausea, vomiting, constipation, shortness of breath or any chest pain. 06/18/2018. No acute events overnight. Patient is alert and awake resting comfortably in bed. She was not able to sleep last night but was able to get some sleep this morning. Patient does not have good appetite and she is refusing her meals. She states that her abdomen still hurts. Unfortunately patient has dementia and cannot provide a detailed history. Patient has history of external hemorrhoids and surgery was consulted for evaluation. Surgery recommendation was no intervention and supportive measures. Today as the nurse was cleaning up her rectal area they found the external hemorrhoid was expressing pus. I was called room by the nurse evaluate the patient it seems like she has an abscess on top of having external hemorrhoids. This could very well be the cause of her persistent leukocytosis. 06/19/2018. 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 On my encounter patient is comfortably resting in bed. When asked if she is hurting anywhere she is a diet and now, and when asked if she had a good night sleep or she H she still says I do not know. Unfortunately patient has severe dementia and cannot provide a good history as per nurses report she has been calm overnight and was able to sleep. The is p.o. tolerant and prefers her Ensure. Patient denies any fever, chills, nausea, vomiting, diarrhea, constipation or any urinary symptoms. 06/20/2018. No acute events overnight. Patient is resting comfortably in her bed in no apparent distress. When asked how she is doing she states I do not know. Patient has been p.o. tolerant however she has not had a bowel movement since yesterday. She denies any fever, chills, nausea, vomiting, diarrhea or any urinary symptoms. Reason For Visit: PROCTITIS CONSTIPATION Physical Exam Vital Signs: Temp Pulse Resp BP Pulse Ox 97.8 F 69 20 127/68 H 98 06/20/18 07:27 06/20/18 07:27 06/20/18 07:27 06/20/18 07:27 06/20/18 07:27 Intake & Output 06/19/18 06/20/18 06/21/18 06:59 06:59 06:59 Intake Total 2712 1926 Output Total 1479 850 Balance 3159 1076 Weight 107.7 kg 111 kg Respiratory exam: PRESENT: clear to auscultation carmela. ABSENT: rales, rhonchi, wheezes Cardiovascular exam: PRESENT: RRR. ABSENT: diastolic murmur, rubs, systolic murmur GI/Abdominal exam: PRESENT: normal bowel sounds, soft, tenderness. ABSENT: distended, guarding, mass, organolmegaly, rebound Skin exam: PRESENT: other - Status post perirectal abscess I&D. Wound dressing looks clean, no active sign of discharge. Results Laboratory Results: 06/20/18 06:47 06/20/18 06:47 06/20/18 06/20/18 06:47 06:47 WBC 15.3 H RBC 3.60 L Hgb 10.4 L Hct 31.7 L MCV 88 MCH 28.8 MCHC 32.7 RDW 16.9 H Plt Count 213 Seg Neutrophils % Not Reportable Lymphocytes % Not Reportable Monocytes % Not Reportable Eosinophils % Not Reportable Basophils % Not Reportable Absolute Neutrophils Not Reportable Absolute Lymphocytes Not Reportable Absolute Monocytes Not Reportable Absolute Eosinophils Not Reportable Absolute Basophils Not Reportable Sodium 133.2 L Potassium 3.6 Chloride 103 Carbon Dioxide 22 Anion Gap 8 BUN 12 Creatinine 0.35 L Est GFR ( Amer) > 60 Est GFR (Non-Af Amer) > 60 Glucose 99 Calcium 7.8 L Total Bilirubin 0.6 AST 19 ALT 22 Alkaline Phosphatase 72 Total Protein 4.3 L Albumin 2.2 L 06/17/18 12:35 Catheterized Urine Urine Culture - Final Staph Coagulase Negative Impressions: Acute Abdomen Series 06/13/18 00:00 IMPRESSION: Nonspecific abdomen. Possible ileus. Distended urinary bladder. Osseous findings as described. KUB X-Ray 06/13/18 23:52 IMPRESSION: 1. The tip of the feeding tube terminates in the left upper quadrant likely within the proximal stomach. The patient has a known moderate hiatal hernia. 2. Nonspecific nonobstructive bowel gas pattern. 3. Other incidental findings as described above. Abdomen/Pelvis CT 06/14/18 16:17 IMPRESSION: Oral contrast given for CT at 0200 hours 06/14/2018 is now seen in the colon, in a nonobstructive pattern. 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 Status post I& D. Raising the question of possible inflammatory bowel disease. Pending biopsy. Wound care and pain management. Continue empiric antibiotics. Prelim wound culture shows gram-positive cocci pending sensitivity. (2) Abdominal pain Qualifiers: Abdominal location: generalized Qualified Code(s): R10.84 - Generalized abdominal pain Is this a current diagnosis for this admission?: Yes Plan: Resolved. CT abdomen with contrast on 06/14/2018 did not show any obstruction or mention of thickening of the bowel which makes diagnosis of proctitis unlikely leukocytosis improving. H&H is stable no blood per rectum. Continue empiric antibiotics. Continue stool softeners. Hold bowel regimen due to diarrhea. (3) Constipation Is this a current diagnosis for this admission?: Yes Plan: Restart stool softener. Encourage p.o. fluid intake. Hold laxatives for another day. (4) Proctitis Is this a current diagnosis for this admission?: Yes Plan: CT abdomen and pelvis with oral contrast on 06/14/2018 negative for any obstruction or mention of any bowel thickening which makes proctitis unlikely. Patient also has leukocytosis. Continue empiric antibiotics. Blood and stool cultures negative. (5) Atrial fibrillation and flutter Is this a current diagnosis for this admission?: No Plan: Currently rate controlled. Continue beta-blockers. Continue DVT prophylaxis. Patient is not on chronic anticoagulation due to previous complications of anticoagulation therapy as per family. Patient family was counseled about the risk and benefits of chronic anticoagulation. (6) Chronic lymphocytic leukemia Is this a current diagnosis for this admission?: No Plan: In remission. Outpatient oncology follow-up. (7) Hypertension Qualifiers: Hypertension type: essential hypertension Qualified Code(s): I10 - Essential (primary) hypertension Is this a current diagnosis for this admission?: No Plan: Normotensive, euvolemic. Continue metoprolol.. Adjust meds as needed. (8) Hyperlipidemia Qualifiers: Hyperlipidemia type: unspecified Qualified Code(s): E78.5 - Hyperlipidemia , unspecified Is this a current diagnosis for this admission?: No Plan: Continue statins. (9) Hypothyroidism Qualifiers: Hypothyroidism type: acquired Qualified Code(s): E03.9 - Hypothyroidism, unspecified Is this a current diagnosis for this admission?: No Plan: Restart levothyroxine. TSH 1.66. (10) Diarrhea Qualifiers: Diarrhea type: unspecified type Qualified Code(s): R19.7 - Diarrhea, unspecified Is this a current diagnosis for this admission?: Yes Plan: Resolved. Possibly to aggressive treatment of underlying constipation. Hold bowel regimen encourage p.o. intake. Stool workup to rule out any infectious diarrhea. C. difficile toxin negative. (11) External hemorrhoid Is this a current diagnosis for this admission?: Yes Plan: As per problem #1. (12) Hyponatremia Is this a current diagnosis for this admission?: Yes Plan: Improving. Acute hypovolemic hyponatremia. Urine Na <10, FeNA X,1%. Likely due to underlying diarrhea. Encourage p.o. intake. Continue normal saline. CMP tomorrow. (13) Do not resuscitate Is this a current diagnosis for this admission?: Yes Plan: Had a detailed discussion with family (2 of her daughters), Dr. Orozco and myself regarding patient's CODE STATUS. They were given a detailed update on the status, prognosis and possible complications. Family decided to have patient DNR at this time and will have a family discussion about possible diverting colostomy for underlying perirectal abscess.
[2018-06-20] MEDS: METOPROLOL TARTRATE 50 MG TABLET PO SCH ×2 (09:26→22:33)
[2018-06-20] MEDS: ZINC OXIDE 20% OINTMENT 28.35 GM TP SCH (09:26)
[2018-06-20] MEDS: DOCUSATE SODIUM 100 MG CAPSULE PO SCH ×2 (09:26→17:20)
[2018-06-20] MEDS: MEGESTROL ACETATE 20 MG TABLET PO SCH (09:26)
[2018-06-20] MEDS: NYSTATIN CREAM 15 GM TP SCH (09:26)
--- NOTE | 2018-06-20 13:31 | PDOC PROGRESS REPORT ---
Subjective Reason For Visit: PROCTITIS CONSTIPATION Physical Exam Vital Signs: Temp Pulse Resp BP Pulse Ox 98.3 F 69 20 132/63 H 99 06/20/18 11:44 06/20/18 11:44 06/20/18 11:44 06/20/18 11:44 06/20/18 11:44 Intake & Output 06/19/18 06/20/18 06/21/18 06:59 06:59 06:59 Intake Total 6964 1926 177 Output Total 3825 850 600 Balance 3159 1076 -423 Weight 107.7 kg 111 kg General appearance: PRESENT: mild distress Rectal exam: PRESENT: other - Patient rolled in left lateral decubitus position. She requires maximum assist. The perineum is examined. There is a copious amount of messer pus coming out of multiple the anal operative incisions. All 3 Vernal drains are still intact. 2 were setons and one is a cutaneous drain. She is also actively stooling. Results Laboratory Results: 06/20/18 06:47 06/20/18 06:47 06/20/18 06/20/18 06:47 06:47 WBC 15.3 H RBC 3.60 L Hgb 10.4 L Hct 31.7 L MCV 88 MCH 28.8 MCHC 32.7 RDW 16.9 H Plt Count 213 Seg Neutrophils % Not Reportable Lymphocytes % Not Reportable Monocytes % Not Reportable Eosinophils % Not Reportable Basophils % Not Reportable Absolute Neutrophils Not Reportable Absolute Lymphocytes Not Reportable Absolute Monocytes Not Reportable Absolute Eosinophils Not Reportable Absolute Basophils Not Reportable Sodium 133.2 L Potassium 3.6 Chloride 103 Carbon Dioxide 22 Anion Gap 8 BUN 12 Creatinine 0.35 L Est GFR ( Amer) > 60 Est GFR (Non-Af Amer) > 60 Glucose 99 Calcium 7.8 L Total Bilirubin 0.6 AST 19 ALT 22 Alkaline Phosphatase 72 Total Protein 4.3 L Albumin 2.2 L 06/17/18 12:35 Catheterized Urine Urine Culture - Final Staph Coagulase Negative Impressions: Acute Abdomen Series 06/13/18 00:00 IMPRESSION: Nonspecific abdomen. Possible ileus. Distended urinary bladder. Osseous findings as described. KUB X-Ray 06/13/18 23:52 IMPRESSION: 1. The tip of the feeding tube terminates in the left upper quadrant likely within the proximal stomach. The patient has a known moderate hiatal hernia. 2. Nonspecific nonobstructive bowel gas pattern. 3. Other incidental findings as described above. Abdomen/Pelvis CT 06/14/18 16:17 IMPRESSION: Oral contrast given for CT at 0200 hours 06/14/2018 is now seen in the colon, in a nonobstructive pattern. Assessment & Plan - Diagnosis (1) Perirectal abscess Is this a current diagnosis for this admission?: Yes Plan: Impression and recommendations: Patient is an 88-year-old white female, full CODE STATUS, bedridden, with an extremely complex possible abscess perineum status post drainage, with multiple seton placement. She is actively draining from her wounds, and actively contaminating this area with stool. She is incontinent. The likelihood of this problem resolving without fecal diversion version is extremely low. In addition this is a complex patient with multiple comorbidities, and a poor overall prognosis. CODE STATUS and levels of aggressiveness of care discussed as well. I have spoken with the primary care physician, and we agree a family conference would be appropriate.
--- NOTE | 2018-06-20 13:38 | OPERATIVE REPORT E ---
Operative Report NAME: KHUSHI BARTLETT : 1930 AGE: 88Y DATE OF SURGERY: 06/18/2018 ROOM: 320 PREOPERATIVE DIAGNOSES: 1. PURULENT DRAINAGE FROM PERIANAL SKIN. 2. PERIANAL INFLAMMATION. POSTOPERATIVE DIAGNOSES: 1. PURULENT DRAINAGE FROM PERIANAL SKIN. 2. PERIANAL INFLAMMATION. 3. LEFT LARGER THAN RIGHT PERIANAL ABSCESS. 4. UPPER MIDLINE PERIRECTAL ABSCESS 5. RIGHT SUBCUTANEOUS FISTULA X2. 6. UPPER MIDLINE PERIANAL ABSCESS. PROCEDURE: 1. Rigid proctosigmoidoscopy. 2. Drainage of perianal abscess x3. 3. Placement of seton x 3 4. Perianal tissue biopsy x4. 5. Left abscess tissue biopsy x1. SURGEON: XENA CHRISTIAN M.D. GLASS BELT SANDER: None. ANESTHESIA: General. FLUIDS: 900 mL. BLOOD LOSS: 50 mL. DRAINS: 3 drains, 0.25 inch Virgie Drains were used. COMPLICATION: None. INDICATION AND FINDINGS: This is an 88-year-old female admitted for confusion, sepsis, urosepsis who has presented with sudden onset of change in mental status, elevated white blood cell count. On physical exam she presented with 2 sites draining purulent material from the right and left perianal areas. On physical exam she has most likely 2 perianal/perirectal abscess which require surgical intervention. Procedure, benefits, and complications explained to the daughter who also is her power of securities attorney, she agreed with the procedure. DESCRIPTION OF PROCEDURE: Procedure was done in the operating room. The patient was placed in the supine position. General anesthesia induced via endotracheal intubation. Walton catheter was then placed. The patient was placed in lithotomy with both legs on the stirrups. The perianum and perirectum were then prepped and draped in the usual fashion. A large amount of semisolid stools were noted in the perianum. A large rectal slotted dilator with bullet was inserted into the rectum. The bullet was removed. The perirectum was irrigated with normal saline until clear. Closer examination of the perianum revealed two areas of erythema on the same site of the and 2 purulent draining sites; 1 located on the right and 1 on the left. On each side a hemostat was inserted through the draining point. The hemostat was then advanced up to the rectum, and with the use of a slotted rectal dilator, the point of origin of the perirectal abscess located at the dentate line was identified as per the fistulous tract. The mucosa was then pierced and a piece of a 0.25 inch Virgie drain was threaded through the rectal mucosa subcutaneous tissue and the ends were tied to themselves with Silk suture. The cutaneous insertion point of the drains were then enlarged with Bovie. A finger was inserted and a large abscess cavity was noted on the left as well as on the right. The cavity on the left was very large and extended from the perianum superiorly up to the vulva, without involving the vulva itself. A large amount of pus was obtained. This was sent for culture and gram stain. A counterincision was made on the left side in highest point of this abscess cavity, a segment of 0.25 [place] drain was threaded from each of the cutaneous counterincisions on the left and tied to itself. Each abscess cavity was then irrigated with normal saline until clear. The perianum was then examined and a third abscess cavity was identified in the upper midline between the rectum and the vagina. This was opened with Bovie. The abscess appeared to be superficial without extension into the vagina or the rectum. The area was irrigated with normal saline. Biopsy of the rectal abscess as well as the perianum were obtained and sent to pathology for permanent section. After this, the area was irrigated with normal saline until clear. The rectum was packed with Surgicel, Gelfoam, and thrombin solution to control rectal mucosa bleeding following opening of the fistulous tract. Each abscess cavity (right and left) was packed with a 2 inch Anselmo packing gauze, sterile dressings applied outside the rectum with ABDs. The patient tolerated the procedure well, removed from the lithotomy position and extubated and transferred to the stretcher in satisfactory condition. DICTATING PHYSICIAN: XENA CHRISTIAN M.D. [id number] PHY#: [id number] ID: [id number] JOB#: [id number] ACCT: [id number] cc:XENA CHRISTIAN M.D. > [facility]
[2018-06-20] MEDS ORDERED: NORMAL SALINE 10 ML SDV (AFTER EACH USE) IV PRN (14:24)
--- NOTE | 2018-06-20 14:31 | RADIOLOGY REPORT (SQ) ---
EXAM DESCRIPTION: PICC INSERTION; U/S GUIDE FOR VASCULAR ACCESS; FLUORO/CV PLACEMENT COMPLETED DATE/TIME: 06/20/2018 2:17 pm; 06/20/2018 2:18 pm REASON FOR STUDY: iv abx, iv fluids, no access; IV ABX COMPARISON: None. FLUOROSCOPY TIME: 1 minutes 6 seconds 3 images saved to PACS. TECHNIQUE: Fluoroscopic and ultrasound guided PICC placement. LIMITATIONS: None. PROCEDURE: After written consent and assessment were obtained, the patient was brought into the fluo roscopy room and placed supine on the table. Ultrasound evaluation of potential access sites were per formed. After successfully identifying a patent right basilic vein, the right arm was prepped and bella ped in a sterile fashion along with the ultrasound probe. The entry site was anesthetized with 1% lid ocaine. A 21 gauge 7 cm needle was advanced through the skin and into the basilic vein under live ult rasound guidance. An ultrasound image was saved to PACS confirming access site. A .018 guide wire w as then inserted through the needle and into the venous system. The needle was then removed and an 11 blade scalpel was used to make a 1cm skin incision. A 5 fr peel-away sheath was advanced over the w mukesh and into the venous system. A measurement was then made using the existing wire and live fluorosc opic guidance. The wire was then removed and trimmed. The PICC was advanced through the peel-away she ath and into the venous system. The peel-away sheath was removed and the catheter was adhered to the patients arm with a stat lock. The catheter was then aspirated and flushed and a sterile bandage was placed over the access site. A fluoroscopic spot image was saved to PACS confirming the catheter tip within the superior vena cava. IMPRESSION: SUCCESSFUL PLACEMENT OF A 5 FR DUAL LUMEN 46 CM PICC IN THE RIGHT BASILIC VEIN. COMMENT: Patient medication list reviewed: Yes- Quality ID# [id number]:Eligible professional attests to doc umenting in the medical record they obtained, updated, or reviewed the patient's current medications. . Quality ID 145: Final reports for procedures using fluoroscopy that document radiation exposure hosea aubrey, or exposure time and number of fluorographic images (if radiation exposure indices are not avail able) Quality ID #76: The patient was prepped and draped using maximum sterile barrier technique including cap, mask, sterile gown, sterile gloves, a large sterile sheet, hand hygiene, and 2% Chlorhexidine fo r cutaneous antisepsis. When ultrasound is used, sterile ultrasound techniques are followed requiring sterile gel and sterile probes. TECHNICAL DOCUMENTATION: JOB ID: [id number] [employer]- All Rights Reserved rev-01/14 Reading location - IP/workstation name: [facility]
[2018-06-20] MEDS: NORMAL SALINE 1000 ML 1,000 ML IV PRN (14:56)
[2018-06-20] MEDS: VANCOMYCIN HCL 1,250 MG in DEXTROSE 5%-WATER 250 ML IV SCH (18:51)
[2018-06-20] MEDS: NORMAL SALINE 10 ML SDV (SCHEDULED) IV SCH (22:32)
[2018-06-21] MEDS: OXYCODONE-ACETAMINOPHEN 5-325 MG TABLET PO PRN ×3 (00:43→18:48)
[2018-06-21] MEDS: PIPERACILLIN SODIUM/TAZOBACTAM 4.5 GM in NORMAL SALINE 100 ML IV SCH ×3 (05:31→17:58)
[2018-06-21] MEDS: LANSOPRAZOLE 30 MG TAB.RAP.DR PO SCH (05:32)
[2018-06-21] MEDS: LEVOTHYROXINE SODIUM 0.1 MG TABLET PO SCH (05:32)
[2018-06-21] MEDS: VANCOMYCIN HCL 1,250 MG in DEXTROSE 5%-WATER 250 ML IV SCH ×2 (06:22→18:48)
[2018-06-21 07:04] LABS: HEMATOCRIT 36.4 % (36.0-47.0); MEAN CORPUSCULAR HEMOGLOBIN 29.1 pg (27.0-33.4); MEAN CORPUSCULAR HGB CONC 33.1 g/dL (32.0-36.0); MEAN CORPUSCULAR VOLUME 88 fl (80-97); PLATELET COUNT 243 10^3/uL (150-450); RED BLOOD COUNT 4.13 10^6/uL (3.72-5.28); RED CELL DISTRIBUTION WIDTH 16.6 % (11.5-14.0); WHITE BLOOD COUNT 13.1 10^3/uL (4.0-10.5)
[2018-06-21 07:38] LABS: ABSOLUTE LYMPHOCYTES# (MANUAL) 2.8 10^3/uL (0.5-4.7); ABSOLUTE MONOCYTES # (MANUAL) 0.4 10^3/uL (0.1-1.4); ABSOLUTE NEUTROPHILS# (MANUAL) 9.8 10^3/uL (1.7-8.2); BAND NEUTROPHILS % (MANUAL) 3 % (3-5); BASOPHILS % (MANUAL) 0 % (0-2); EOSINOPHILS % (MANUAL) 1 % (0-6); LYMPHOCYTES % (MANUAL) 21 % (13-45); METAMYELOCYTES % (MANUAL) 3 % (0); MONOCYTES % (MANUAL) 3 % (3-13); SEGMENTED NEUTROPHILS % (MAN) 69 % (42-78); TOTAL CELLS COUNTED 100; TOXIC GRANULATION 3+; TOXIC VACUOLATION PRESENT
[2018-06-21 07:39] LABS: ANISOCYTOSIS 1+; OVALOCYTES 2+; PLATELET CLUMPS PRESENT; POIKILOCYTOSIS 2+; POLYCHROMASIA 1+
[2018-06-21 08:42] LABS: ALANINE AMINOTRANSFERASE 21 U/L (9-52); ALBUMIN 2.9 g/dL (3.5-5.0); ALKALINE PHOSPHATASE 80 U/L (38-126); ANION GAP 5 (5-19); ASPARTATE AMINO TRANSFERASE 24 U/L (14-36); BILIRUBIN,DIRECT 0.4 mg/dL (0.0-0.4); BILIRUBIN,TOTAL 0.8 mg/dL (0.2-1.3); BLOOD UREA NITROGEN 8 mg/dL (7-20); CALCIUM 7.9 mg/dL (8.4-10.2); CARBON DIOXIDE 29 mmol/L (22-30); CHLORIDE 102 mmol/L (98-107); GLUCOSE 100 mg/dL (75-110); POTASSIUM 3.6 mmol/L (3.6-5.0); SODIUM 135.6 mmol/L (137-145); TOTAL PROTEIN 5.8 g/dL (6.3-8.2)
[2018-06-21] MEDS: METOPROLOL TARTRATE 50 MG TABLET PO SCH ×2 (11:23→21:28)
[2018-06-21] MEDS: MEGESTROL ACETATE 20 MG TABLET PO SCH (11:24)
[2018-06-21] MEDS: ZINC OXIDE 20% OINTMENT 28.35 GM TP SCH ×4 (11:25→21:29)
[2018-06-21] MEDS: NYSTATIN CREAM 15 GM TP SCH ×2 (11:25→17:57)
[2018-06-21] MEDS: NORMAL SALINE 10 ML SDV (SCHEDULED) IV SCH ×2 (11:25→21:28)
[2018-06-21] MEDS: DOCUSATE SODIUM 100 MG CAPSULE PO SCH (11:30)
[2018-06-21] MEDS ORDERED: ACETAMINOPHEN 325 MG TABLET PO PRN (12:16)
--- NOTE | 2018-06-21 12:44 | PDOC PROGRESS REPORT ---
Subjective Progress Note for:: 06/21/18 Subjective:: comfortable Reason For Visit: PROCTITIS CONSTIPATION Physical Exam Vital Signs: Temp Pulse Resp BP Pulse Ox 98.1 F 69 15 135/69 H 98 06/21/18 07:42 06/21/18 07:42 06/21/18 07:42 06/21/18 07:42 06/21/18 07:42 Intake & Output 06/20/18 06/21/18 06/22/18 06:59 06:59 06:59 Intake Total 2926 1227 350 Output Total 850 2250 500 Balance 5663 -5313 -150 Weight 111 kg 111.9 kg General appearance: PRESENT: no acute distress Rectal exam: PRESENT: deferred, normal inspection, other - Perianum= minimal erythema, some drainage from abscess sites, Virgie drains (3) present; no tenderness or odor; no stool soilage noted Results Laboratory Results: 06/21/18 06:54 06/21/18 08:13 06/21/18 06/21/18 06/21/18 05:24 05:24 06:54 WBC Cancelled 13.1 H RBC Cancelled 4.13 Hgb Cancelled 12.0 Hct Cancelled 36.4 MCV Cancelled 88 MCH Cancelled 29.1 MCHC Cancelled 33.1 RDW Cancelled 16.6 H Plt Count Cancelled 243 Seg Neutrophils % Cancelled Not Reportable Lymphocytes % Cancelled Not Reportable Monocytes % Cancelled Not Reportable Eosinophils % Cancelled Not Reportable Basophils % Cancelled Not Reportable Absolute Neutrophils Cancelled Not Reportable Absolute Lymphocytes Cancelled Not Reportable Absolute Monocytes Cancelled Not Reportable Absolute Eosinophils Cancelled Not Reportable Absolute Basophils Cancelled Not Reportable Sodium Cancelled Potassium Cancelled Chloride Cancelled Carbon Dioxide Cancelled Anion Gap Cancelled BUN Cancelled Creatinine Cancelled Est GFR ( Amer) Cancelled Est GFR (Non-Af Amer) Cancelled Glucose Cancelled Calcium Cancelled Total Bilirubin Cancelled AST Cancelled ALT Cancelled Alkaline Phosphatase Cancelled Total Protein Cancelled Albumin Cancelled 06/21/18 06/21/18 07:04 08:13 WBC RBC Hgb Hct MCV MCH MCHC RDW Plt Count Seg Neutrophils % Lymphocytes % Monocytes % Eosinophils % Basophils % Absolute Neutrophils Absolute Lymphocytes Absolute Monocytes Absolute Eosinophils Absolute Basophils Sodium Cancelled 135.6 L Potassium Cancelled 3.6 Chloride Cancelled 102 Carbon Dioxide Cancelled 29 Anion Gap Cancelled 5 BUN Cancelled 8 Creatinine Cancelled 0.35 L Est GFR ( Amer) Cancelled > 60 Est GFR (Non-Af Amer) Cancelled > 60 Glucose Cancelled 100 Calcium Cancelled 7.9 L Total Bilirubin Cancelled 0.8 AST Cancelled 24 ALT Cancelled 21 Alkaline Phosphatase Cancelled 80 Total Protein Cancelled 5.8 L Albumin Cancelled 2.9 L 06/17/18 16:05 Stool - Stool - Final 06/17/18 16:05 Stool - Stool Stool Culture - Final NO SALMONELLA, SHIGELLA, CAMPYLOBACTER, OR E.COLI 0157 RECOVERED. NEGATIVE FOR SHIGA TOXINS 1&2. 06/18/18 14:30 Buttocks - Abscess Gram Stain - Final 06/18/18 14:30 Buttocks - Abscess Wound Culture - Final Mrsa (Meth Resis Staph Aureus) Impressions: Acute Abdomen Series 06/13/18 00:00 IMPRESSION: Nonspecific abdomen. Possible ileus. Distended urinary bladder. Osseous findings as described. KUB X-Ray 06/13/18 23:52 IMPRESSION: 1. The tip of the feeding tube terminates in the left upper quadrant likely within the proximal stomach. The patient has a known moderate hiatal hernia. 2. Nonspecific nonobstructive bowel gas pattern. 3. Other incidental findings as described above. Abdomen/Pelvis CT 06/14/18 16:17 IMPRESSION: Oral contrast given for CT at 0200 hours 06/14/2018 is now seen in the colon, in a nonobstructive pattern. Guidance Fluoroscopy 06/20/18 00:00 IMPRESSION: SUCCESSFUL PLACEMENT OF A 5 FR DUAL LUMEN 46 CM PICC IN THE RIGHT BASILIC VEIN. Interventional Vascular Procedure 06/20/18 00:00 IMPRESSION: SUCCESSFUL PLACEMENT OF A 5 FR DUAL LUMEN 46 CM PICC IN THE RIGHT BASILIC VEIN. PICC Line Insertion 06/20/18 00:00 IMPRESSION: SUCCESSFUL PLACEMENT OF A 5 FR DUAL LUMEN 46 CM PICC IN THE RIGHT BASILIC VEIN. 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 - Plan Summary Plan Summary: A/ POD#3 after drainage of perirectal abscess x 3 and treatment of rectocutaneous fistula x 2 Wound appearance much improved Perirectal abscess culture positive for MRSA Currently, patient on Vanco/zosyn P/ 1) No acute General Surgery issues identified 2) Patient could be discharged to an outside facility at anytime by our viewpoint on IV vancomycin and oral agent for gram negative coverage for a 15 day course 3) Wound care: keep Virgie drains in place, flush each abscess opening with 100 mL of sterile NS TID, appliy zinc oxyde cream to perianum every 4 hours 4) Apply Nystatin cream to perianum BID x 5 additional days, then stop 5) Follow up with our clinic with ELIUD Lopez, 2 weeks after discharge 6) Monitor the use of laxatives or stools softeners
[2018-06-21] MEDS ORDERED: NYSTATIN 500000 UNIT/5 ML UDCUP PO SCH (14:00)
[2018-06-21 14:38] LABS: PATH REVIEW PATHOLOGIST REVIEWED
[2018-06-21] MEDS: NORMAL SALINE 1000 ML 1,000 ML IV PRN (15:14)
[2018-06-21] MEDS: NYSTATIN 500000 UNIT/5 ML UDCUP PO SCH ×2 (15:22→21:28)
--- NOTE | 2018-06-21 15:50 | PDOC PROGRESS REPORT ---
Subjective Progress Note for:: 06/21/18 Subjective:: Assumed care today. Ms. Rollins is an 88 year old female assisted living resident , with a past medical history of dementia, atrial fibrillation, hypertension, obesity, diabetes and chronic constipation who initially presented with fever and abdominal pain. She was initially treated for possible proctitis. She was later found to have a perirectal abscess with a rectocutaneous fistula and eventually underwent I&D of rectocutaneous fistula x2 right and left on with placement of drains. Initial surgical plan to pursue fecal diversion was deferred after a long conversation with family, surgery and preceidng hospitalist due to patient's intraoperative risk, age and multiple comorbidities. No acute event overnight. Patient was sleeping comfortable upon encounter. She has dementia and denies acute complaint at the moment. Drains appear to continue to have purulent drainage albeit improved upon discussion with surgeon. Patient will be discharged to a rehab/alf. Reason For Visit: PROCTITIS CONSTIPATION Physical Exam Vital Signs: Temp Pulse Resp BP Pulse Ox 97.9 F 70 15 136/64 H 98 06/21/18 12:17 06/21/18 12:17 06/21/18 12:17 06/21/18 12:17 06/21/18 12:17 Intake & Output 06/20/18 06/21/18 06/22/18 06:59 06:59 06:59 Intake Total 2926 1227 1450 Output Total 850 2250 500 Balance 2076 -1023 950 Weight 244 lb 11.41 oz 246 lb 11.156 oz 246 lb 11.156 oz General appearance: PRESENT: no acute distress, well-developed, well-nourished Head exam: PRESENT: atraumatic, normocephalic Eye exam: PRESENT: conjunctiva pink, EOMI, PERRLA. ABSENT: scleral icterus Ear exam: PRESENT: normal external ear exam Mouth exam: PRESENT: moist, tongue midline Neck exam: ABSENT: carotid bruit, JVD, lymphadenopathy, thyromegaly Respiratory exam: PRESENT: clear to auscultation carmela. ABSENT: rales, rhonchi, wheezes Cardiovascular exam: PRESENT: RRR. ABSENT: diastolic murmur, rubs, systolic murmur Pulses: PRESENT: normal dorsalis pedis pul GI/Abdominal exam: PRESENT: normal bowel sounds, soft, other - + 3 drains with moderate drainage. ABSENT: distended, guarding, mass, organolmegaly, rebound, tenderness Neurological exam: PRESENT: alert, awake, oriented to person, oriented to place Results Laboratory Results: 06/21/18 06:54 06/21/18 08:13 06/21/18 06/21/18 06/21/18 05:24 05:24 06:54 WBC Cancelled 13.1 H RBC Cancelled 4.13 Hgb Cancelled 12.0 Hct Cancelled 36.4 MCV Cancelled 88 MCH Cancelled 29.1 MCHC Cancelled 33.1 RDW Cancelled 16.6 H Plt Count Cancelled 243 Seg Neutrophils % Cancelled Not Reportable Lymphocytes % Cancelled Not Reportable Monocytes % Cancelled Not Reportable Eosinophils % Cancelled Not Reportable Basophils % Cancelled Not Reportable Absolute Neutrophils Cancelled Not Reportable Absolute Lymphocytes Cancelled Not Reportable Absolute Monocytes Cancelled Not Reportable Absolute Eosinophils Cancelled Not Reportable Absolute Basophils Cancelled Not Reportable Sodium Cancelled Potassium Cancelled Chloride Cancelled Carbon Dioxide Cancelled Anion Gap Cancelled BUN Cancelled Creatinine Cancelled Est GFR ( Amer) Cancelled Est GFR (Non-Af Amer) Cancelled Glucose Cancelled Calcium Cancelled Total Bilirubin Cancelled AST Cancelled ALT Cancelled Alkaline Phosphatase Cancelled Total Protein Cancelled Albumin Cancelled 06/21/18 06/21/18 07:04 08:13 WBC RBC Hgb Hct MCV MCH MCHC RDW Plt Count Seg Neutrophils % Lymphocytes % Monocytes % Eosinophils % Basophils % Absolute Neutrophils Absolute Lymphocytes Absolute Monocytes Absolute Eosinophils Absolute Basophils Sodium Cancelled 135.6 L Potassium Cancelled 3.6 Chloride Cancelled 102 Carbon Dioxide Cancelled 29 Anion Gap Cancelled 5 BUN Cancelled 8 Creatinine Cancelled 0.35 L Est GFR ( Amer) Cancelled > 60 Est GFR (Non-Af Amer) Cancelled > 60 Glucose Cancelled 100 Calcium Cancelled 7.9 L Total Bilirubin Cancelled 0.8 AST Cancelled 24 ALT Cancelled 21 Alkaline Phosphatase Cancelled 80 Total Protein Cancelled 5.8 L Albumin Cancelled 2.9 L 06/17/18 16:05 Stool - Stool - Final 06/17/18 16:05 Stool - Stool Stool Culture - Final NO SALMONELLA, SHIGELLA, CAMPYLOBACTER, OR E.COLI 0157 RECOVERED. NEGATIVE FOR SHIGA TOXINS 1&2. 06/18/18 14:30 Buttocks - Abscess Gram Stain - Final 06/18/18 14:30 Buttocks - Abscess Wound Culture - Final Mrsa (Meth Resis Staph Aureus) Impressions: Acute Abdomen Series 06/13/18 00:00 IMPRESSION: Nonspecific abdomen. Possible ileus. Distended urinary bladder. Osseous findings as described. KUB X-Ray 06/13/18 23:52 IMPRESSION: 1. The tip of the feeding tube terminates in the left upper quadrant likely within the proximal stomach. The patient has a known moderate hiatal hernia. 2. Nonspecific nonobstructive bowel gas pattern. 3. Other incidental findings as described above. Abdomen/Pelvis CT 06/14/18 16:17 IMPRESSION: Oral contrast given for CT at 0200 hours 06/14/2018 is now seen in the colon, in a nonobstructive pattern. Guidance Fluoroscopy 06/20/18 00:00 IMPRESSION: SUCCESSFUL PLACEMENT OF A 5 FR DUAL LUMEN 46 CM PICC IN THE RIGHT BASILIC VEIN. Interventional Vascular Procedure 06/20/18 00:00 IMPRESSION: SUCCESSFUL PLACEMENT OF A 5 FR DUAL LUMEN 46 CM PICC IN THE RIGHT BASILIC VEIN. PICC Line Insertion 06/20/18 00:00 IMPRESSION: SUCCESSFUL PLACEMENT OF A 5 FR DUAL LUMEN 46 CM PICC IN THE RIGHT BASILIC VEIN. Assessment & Plan - Diagnosis (1) Perirectal abscess Is this a current diagnosis for this admission?: Yes Plan: Improving. Status post I&D of rectocutaneous fistula x2 right and left on with placement of drains. Discussed with surgery and family in length again today. Culture form surgical specimen grew MRSA. Plan will be to discharge to rehab/SNF with antibiotics. Continue IV vancomycin and Zosyn for now. (2) Atrial fibrillation Is this a current diagnosis for this admission?: Yes Plan: Paroxysmal. Currently rate-controlled. Continue lopressor. Not on chronic anticoagulation per family' choice due to previous bleeding complication from anticoagulant. (3) Hypothyroidism Qualifiers: Hypothyroidism type: acquired Qualified Code(s): E03.9 - Hypothyroidism, unspecified Is this a current diagnosis for this admission?: Yes Plan: Stable. Continue synthroid. (4) Hyponatremia Is this a current diagnosis for this admission?: Yes Plan: Resolved. - Time Time Spent with patient: 25-34 minutes
[2018-06-21] MEDS ORDERED: RISPERIDONE 0.25 MG TABLET PO ONE (21:00)
[2018-06-22] MEDS: PIPERACILLIN SODIUM/TAZOBACTAM 4.5 GM in NORMAL SALINE 100 ML IV SCH ×3 (00:15→11:19)
[2018-06-22] MEDS: ZINC OXIDE 20% OINTMENT 28.35 GM TP SCH ×6 (02:21→23:02)
[2018-06-22] MEDS ORDERED: LORAZEPAM INJ 2 MG/1 ML VIAL IV ONE (04:00)
[2018-06-22] MEDS: LANSOPRAZOLE 30 MG TAB.RAP.DR PO SCH (05:44)
[2018-06-22] MEDS: LEVOTHYROXINE SODIUM 0.1 MG TABLET PO SCH (05:44)
[2018-06-22] MEDS: NYSTATIN 500000 UNIT/5 ML UDCUP PO SCH ×3 (05:44→23:01)
[2018-06-22] MEDS: VANCOMYCIN HCL 1,250 MG in DEXTROSE 5%-WATER 250 ML IV SCH ×2 (06:45→18:30)
[2018-06-22 07:08] LABS: VANCOMYCIN,TROUGH 12.4 ug/mL (5.0-20.0)
[2018-06-22] MEDS: METOPROLOL TARTRATE 50 MG TABLET PO SCH ×2 (09:43→23:01)
[2018-06-22] MEDS: MEGESTROL ACETATE 20 MG TABLET PO SCH (09:43)
[2018-06-22] MEDS: NORMAL SALINE 10 ML SDV (SCHEDULED) IV SCH ×2 (09:44→23:01)
[2018-06-22] MEDS: NYSTATIN CREAM 15 GM TP SCH ×2 (09:44→18:30)
[2018-06-22] MEDS: NORMAL SALINE 1000 ML 1,000 ML IV PRN (09:45)
[2018-06-22] MEDS: OXYCODONE-ACETAMINOPHEN 5-325 MG TABLET PO PRN ×3 (09:45→18:30)
--- NOTE | 2018-06-22 14:39 | PDOC PROGRESS REPORT ---
Subjective Progress Note for:: 06/22/18 Subjective:: Assumed care today. Ms. Rollins is an 88 year old female assisted living resident , with a past medical history of dementia, atrial fibrillation, hypertension, obesity, diabetes and chronic constipation who initially presented with fever and abdominal pain. She was initially treated for possible proctitis. She was later found to have a perirectal abscess with a rectocutaneous fistula and eventually underwent I&D of rectocutaneous fistula x2 right and left on with placement of drains. Initial surgical plan to pursue fecal diversion was deferred after a long conversation with family, surgery and preceidng hospitalist due to patient's intraoperative risk, age and multiple comorbidities. Patient had an episode of confusion last night where she thought she was in a house of one of the nurses and was yelling for her to be transferred to a hospital. She was risperidone and ativan. Upon encounter, she is not in distress. She is oriented to person and place but thinks it's July. She is not in acute pain but reports to "feeling sad". Perirectal drains appear to continue to have moderate drainage this morning. She is still awaiting placement to rehab/snf. Reason For Visit: PROCTITIS CONSTIPATION Physical Exam Vital Signs: Temp Pulse Resp BP Pulse Ox 98.1 F 70 28 H 142/77 H 97 06/22/18 11:45 06/22/18 11:45 06/22/18 11:45 06/22/18 11:45 06/22/18 11:45 Intake & Output 06/21/18 06/22/18 06/23/18 06:59 06:59 06:59 Intake Total 1227 3742 450 Output Total 2250 2625 425 Balance -1023 1117 25 Weight 246 lb 11.156 oz 249 lb 9.012 oz General appearance: PRESENT: no acute distress, well-developed, well-nourished Head exam: PRESENT: atraumatic, normocephalic Eye exam: PRESENT: conjunctiva pink, EOMI, PERRLA. ABSENT: scleral icterus Ear exam: PRESENT: normal external ear exam Mouth exam: PRESENT: moist, tongue midline Neck exam: ABSENT: carotid bruit, JVD, lymphadenopathy, thyromegaly Respiratory exam: PRESENT: rales - mild rales on the right base. ABSENT: rhonchi, wheezes Cardiovascular exam: PRESENT: RRR. ABSENT: diastolic murmur, rubs, systolic murmur Pulses: PRESENT: normal dorsalis pedis pul GI/Abdominal exam: PRESENT: normal bowel sounds, soft. ABSENT: distended, guarding, mass, organolmegaly, rebound, tenderness Rectal exam: PRESENT: other - note of 3 perirectal drains with moderate slightly yellowish discharge Extremities exam: PRESENT: full ROM. ABSENT: calf tenderness, clubbing, pedal edema Neurological exam: PRESENT: alert, awake, oriented to person, oriented to place Results Laboratory Results: 06/21/18 06:54 06/22/18 06:35 06/22/18 06:35 Creatinine 0.38 L Est GFR ( Amer) > 60 Est GFR (Non-Af Amer) > 60 06/18/18 16:42 Perirectal Gram Stain - Final 06/18/18 16:42 Perirectal Wound Culture - Final Mrsa (Meth Resis Staph Aureus) Enterococcus Faecalis(Group D) Skin Lien No Anaerobic Organisms Impressions: Acute Abdomen Series 06/13/18 00:00 IMPRESSION: Nonspecific abdomen. Possible ileus. Distended urinary bladder. Osseous findings as described. KUB X-Ray 06/13/18 23:52 IMPRESSION: 1. The tip of the feeding tube terminates in the left upper quadrant likely within the proximal stomach. The patient has a known moderate hiatal hernia. 2. Nonspecific nonobstructive bowel gas pattern. 3. Other incidental findings as described above. Abdomen/Pelvis CT 06/14/18 16:17 IMPRESSION: Oral contrast given for CT at 0200 hours 06/14/2018 is now seen in the colon, in a nonobstructive pattern. Guidance Fluoroscopy 06/20/18 00:00 IMPRESSION: SUCCESSFUL PLACEMENT OF A 5 FR DUAL LUMEN 46 CM PICC IN THE RIGHT BASILIC VEIN. Interventional Vascular Procedure 06/20/18 00:00 IMPRESSION: SUCCESSFUL PLACEMENT OF A 5 FR DUAL LUMEN 46 CM PICC IN THE RIGHT BASILIC VEIN. PICC Line Insertion 06/20/18 00:00 IMPRESSION: SUCCESSFUL PLACEMENT OF A 5 FR DUAL LUMEN 46 CM PICC IN THE RIGHT BASILIC VEIN. Assessment & Plan - Diagnosis (1) Perirectal abscess Is this a current diagnosis for this admission?: Yes Plan: Improving. Status post I&D of rectocutaneous fistula x2 right and left on with placement of drains. Culture form surgical specimen grew MRSA. Plan will be to discharge to rehab/SNF with IV antibiotics. Continue IV vancomycin and Zosyn for now. (2) Atrial fibrillation Is this a current diagnosis for this admission?: Yes Plan: Paroxysmal. Currently rate-controlled. Continue lopressor. Not on chronic anticoagulation per family's choice due to previous bleeding complication from anticoagulant. (3) Hypothyroidism Qualifiers: Hypothyroidism type: acquired Qualified Code(s): E03.9 - Hypothyroidism, unspecified Is this a current diagnosis for this admission?: Yes Plan: Stable. Continue synthroid. (4) Hyponatremia Is this a current diagnosis for this admission?: Yes Plan: Resolved. (5) ing Is this a current diagnosis for this admission?: Yes Plan: Patient had transient confusion last night likely from ing. She is coherent and oriented to place and person upon encounter this morning (baseline) . Resume Buspar. - Time Time Spent with patient: 15-24 minutes
--- NOTE | 2018-06-22 16:26 | RADIOLOGY REPORT (SQ) ---
EXAM DESCRIPTION: CHEST SINGLE VIEW COMPLETED DATE/TIME: 06/22/2018 4:08 pm REASON FOR STUDY: possible pneumonia COMPARISON: Two-view chest 06/13/2018 EXAM PARAMETERS: NUMBER OF VIEWS: One view. TECHNIQUE: Single frontal radiographic view of the chest acquired. RADIATION DOSE: NA LIMITATIONS: None. FINDINGS: LUNGS AND PLEURA: Dense consolidation left lower lobe worrisome for pneumonia. Mild pulmonary vascular prominence without alveolar or interstitial edema. No pneumothorax. Question trace left pleural effusion. MEDIASTINUM AND HILAR STRUCTURES: No masses. Contour normal. 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 IMPRESSION: Left basilar consolidation worrisome for pneumonia. Question trace left pleural effusio n TECHNICAL DOCUMENTATION: JOB ID: [id number] [employer]- All Rights Reserved Reading location - IP/workstation name: [email or web address]
[2018-06-22] MEDS ORDERED: BUSPIRONE HCL 10 MG TABLET PO SCH (22:00)
[2018-06-22] MEDS ORDERED: METRONIDAZOLE 500 MG TABLET PO SCH (22:00)
[2018-06-22] MEDS: HEPARIN SOD (PORCINE) 5,000 UNIT/ML 1 ML SYRINGE SUBCUT SCH (23:00)
[2018-06-22] MEDS: QUETIAPINE FUMARATE 100 MG TABLET PO SCH (23:02)
[2018-06-22] MEDS: PIPERACILLIN SODIUM/TAZOBACTAM 3.375 GM in NORMAL SALINE 100 ML IV SCH (23:34)
[2018-06-23] MEDS: ZINC OXIDE 20% OINTMENT 28.35 GM TP SCH ×6 (01:30→22:31)
[2018-06-23] MEDS: LANSOPRAZOLE 30 MG TAB.RAP.DR PO SCH (05:38)
[2018-06-23] MEDS: LEVOTHYROXINE SODIUM 0.1 MG TABLET PO SCH (05:38)
[2018-06-23] MEDS: PIPERACILLIN SODIUM/TAZOBACTAM 3.375 GM in NORMAL SALINE 100 ML IV SCH ×3 (05:38→17:22)
[2018-06-23] MEDS: NYSTATIN 500000 UNIT/5 ML UDCUP PO SCH ×3 (05:38→22:30)
[2018-06-23] MEDS: VANCOMYCIN HCL 1,250 MG in DEXTROSE 5%-WATER 250 ML IV SCH ×2 (08:17→18:54)
[2018-06-23] MEDS: OXYCODONE-ACETAMINOPHEN 5-325 MG TABLET PO PRN ×3 (08:29→22:30)
[2018-06-23] MEDS: HEPARIN SOD (PORCINE) 5,000 UNIT/ML 1 ML SYRINGE SUBCUT SCH ×2 (11:25→22:29)
[2018-06-23] MEDS: METOPROLOL TARTRATE 50 MG TABLET PO SCH ×2 (11:25→22:30)
[2018-06-23] MEDS: NORMAL SALINE 1000 ML 1,000 ML IV PRN (11:26)
[2018-06-23] MEDS: MEGESTROL ACETATE 20 MG TABLET PO SCH (11:26)
[2018-06-23] MEDS: NYSTATIN CREAM 15 GM TP SCH ×2 (11:27→17:23)
[2018-06-23] MEDS: NORMAL SALINE 10 ML SDV (SCHEDULED) IV SCH ×2 (11:28→22:30)
--- NOTE | 2018-06-23 12:29 | PDOC PROGRESS REPORT ---
Subjective Progress Note for:: 06/23/18 Subjective:: Assumed care today. Ms. Rollins is an 88 year old female assisted living resident , with a past medical history of dementia, atrial fibrillation, hypertension, obesity, diabetes and chronic constipation who initially presented with fever and abdominal pain. She was initially treated for possible proctitis. She was later found to have a perirectal abscess with a rectocutaneous fistula and eventually underwent I&D of rectocutaneous fistula x2 right and left on with placement of drains. Initial surgical plan to pursue fecal diversion was deferred after a long conversation with family, surgery and preceding hospitalist due to patient's intraoperative risk, age and multiple comorbidities. Patient was started on low dose Seroquel last night for her episodes of owning to which she has responded really well. No agitation or combative behavior last night. Patient has been awaiting for rehab placement. However, yesterday, she had minimally productive cough and was noted to have rales on the left base. Chest x -ray yesterday afternoon revealed a new left lower lobe pneumonia. Upon re-examination of surgical wounds this morning, perirectal drains were noted to have significantly reduced drainage compared to yesterday. The erythema around the surgical wounds are now very minimal. No fever or chills. Reason For Visit: PROCTITIS CONSTIPATION Physical Exam Vital Signs: Temp Pulse Resp BP Pulse Ox 98.3 F 70 18 155/69 H 100 06/23/18 08:09 06/23/18 08:09 06/23/18 08:09 06/23/18 08:09 06/23/18 08:09 Intake & Output 06/22/18 06/23/18 06/24/18 06:59 06:59 06:59 Intake Total 3742 1542 1350 Output Total 2625 2525 Balance 1117 -983 1350 Weight 249 lb 9.012 oz 250 lb 14.177 oz General appearance: PRESENT: no acute distress, well-developed, well-nourished Head exam: PRESENT: atraumatic, normocephalic Eye exam: PRESENT: conjunctiva pink, EOMI, PERRLA. ABSENT: scleral icterus Ear exam: PRESENT: normal external ear exam Neck exam: ABSENT: carotid bruit, JVD, lymphadenopathy, thyromegaly Respiratory exam: PRESENT: clear to auscultation carmela, rales - left bases. ABSENT: rhonchi, wheezes Cardiovascular exam: PRESENT: irregular rhythm. ABSENT: diastolic murmur, rubs , systolic murmur Pulses: PRESENT: normal dorsalis pedis pul GI/Abdominal exam: PRESENT: normal bowel sounds, soft, other - Perirectal drains were noted to have significantly reduced drainage compared to yesterday. The erythema around the surgical wounds are now very minimal.. ABSENT: distended, guarding, mass, organolmegaly, rebound, tenderness Rectal exam: PRESENT: deferred Neurological exam: PRESENT: alert, awake, oriented to person, oriented to place Results Laboratory Results: 06/21/18 06:54 06/22/18 06:35 06/18/18 16:42 Perirectal Gram Stain - Final 06/18/18 16:42 Perirectal Wound Culture - Final Mrsa (Meth Resis Staph Aureus) Enterococcus Faecalis(Group D) Skin Lien No Anaerobic Organisms Impressions: Acute Abdomen Series 06/13/18 00:00 IMPRESSION: Nonspecific abdomen. Possible ileus. Distended urinary bladder. Osseous findings as described. KUB X-Ray 06/13/18 23:52 IMPRESSION: 1. The tip of the feeding tube terminates in the left upper quadrant likely within the proximal stomach. The patient has a known moderate hiatal hernia. 2. Nonspecific nonobstructive bowel gas pattern. 3. Other incidental findings as described above. Abdomen/Pelvis CT 06/14/18 16:17 IMPRESSION: Oral contrast given for CT at 0200 hours 06/14/2018 is now seen in the colon, in a nonobstructive pattern. Guidance Fluoroscopy 06/20/18 00:00 IMPRESSION: SUCCESSFUL PLACEMENT OF A 5 FR DUAL LUMEN 46 CM PICC IN THE RIGHT BASILIC VEIN. Interventional Vascular Procedure 06/20/18 00:00 IMPRESSION: SUCCESSFUL PLACEMENT OF A 5 FR DUAL LUMEN 46 CM PICC IN THE RIGHT BASILIC VEIN. PICC Line Insertion 06/20/18 00:00 IMPRESSION: SUCCESSFUL PLACEMENT OF A 5 FR DUAL LUMEN 46 CM PICC IN THE RIGHT BASILIC VEIN. Chest X-Ray 06/22/18 00:00 IMPRESSION: Left basilar consolidation worrisome for pneumonia. Question trace left pleural effusion Assessment & Plan - Diagnosis (1) Perirectal abscess Is this a current diagnosis for this admission?: Yes Plan: Improving. Status post I&D of rectocutaneous fistula x2 right and left on with placement of drains. Culture form surgical specimen grew MRSA. Plan will be to discharge to rehab/SNF with IV vancomycin oral Flagyl for a total of 15 days when she is deemed fit for discharge and when bed is available at rehab. Continue IV vancomycin and Zosyn for now. (2) Atrial fibrillation Is this a current diagnosis for this admission?: Yes Plan: Paroxysmal. Currently rate-controlled. Continue lopressor. Not on chronic anticoagulation per family's choice due to previous bleeding complication from anticoagulant. (3) Hypothyroidism Qualifiers: Hypothyroidism type: acquired Qualified Code(s): E03.9 - Hypothyroidism, unspecified Is this a current diagnosis for this admission?: No Plan: Stable. Continue synthroid. (4) Hyponatremia Is this a current diagnosis for this admission?: Yes Plan: Resolved. (5) Sundowning Is this a current diagnosis for this admission?: Yes Plan: Buspar discontinued as family reports patient did not tolerate this well before (became lethargic). She has responded well to Seroquel. (6) Pneumonia Qualifiers: Pneumonia type: due to unspecified organism Laterality: left Lung location: lower lobe of lung Qualified Code(s): J18.1 - Lobar pneumonia, unspecified organism Is this a current diagnosis for this admission?: Yes Plan: Patient has new left lower lobe pneumonia possibly HAP. She is already on vancomycin. Zosyn was restarted. Sputum culture ordered. - Time Time Spent with patient: 15-24 minutes
[2018-06-23] MEDS: QUETIAPINE FUMARATE 100 MG TABLET PO SCH (23:18)
[2018-06-23] MEDS: IPRATROPIUM/ALBUTEROL 0.5-2.5 MG/3 ML AMPUL NEB PRN (23:35)
[2018-06-24] MEDS: PIPERACILLIN SODIUM/TAZOBACTAM 3.375 GM in NORMAL SALINE 100 ML IV SCH ×5 (00:18→23:30)
[2018-06-24] MEDS: NORMAL SALINE 1000 ML 1,000 ML IV PRN ×2 (00:19→23:32)
[2018-06-24] MEDS: ZINC OXIDE 20% OINTMENT 28.35 GM TP SCH ×6 (02:26→23:30)
[2018-06-24] MEDS: LANSOPRAZOLE 30 MG TAB.RAP.DR PO SCH (06:21)
[2018-06-24] MEDS: LEVOTHYROXINE SODIUM 0.1 MG TABLET PO SCH (06:21)
[2018-06-24] MEDS: NYSTATIN 500000 UNIT/5 ML UDCUP PO SCH ×3 (06:21→21:34)
[2018-06-24] MEDS: VANCOMYCIN HCL 1,250 MG in DEXTROSE 5%-WATER 250 ML IV SCH ×2 (06:29→18:06)
[2018-06-24] MEDS: OXYCODONE-ACETAMINOPHEN 5-325 MG TABLET PO PRN ×4 (06:29→23:44)
[2018-06-24] MEDS: IPRATROPIUM/ALBUTEROL 0.5-2.5 MG/3 ML AMPUL NEB SCH ×2 (08:42→15:57)
[2018-06-24] MEDS: METOPROLOL TARTRATE 50 MG TABLET PO SCH ×2 (10:40→21:33)
[2018-06-24] MEDS: HEPARIN SOD (PORCINE) 5,000 UNIT/ML 1 ML SYRINGE SUBCUT SCH ×2 (10:41→21:33)
[2018-06-24] MEDS: MEGESTROL ACETATE 20 MG TABLET PO SCH (10:41)
[2018-06-24] MEDS: NORMAL SALINE 10 ML SDV (SCHEDULED) IV SCH ×2 (10:41→21:35)
[2018-06-24] MEDS: NYSTATIN CREAM 15 GM TP SCH ×2 (10:42→17:06)
--- NOTE | 2018-06-24 10:43 | PDOC PROGRESS REPORT ---
Subjective Progress Note for:: 06/24/18 Subjective:: Assumed care today. Ms. Rollins is an 88 year old female assisted living resident , with a past medical history of dementia, atrial fibrillation, hypertension, obesity, diabetes and chronic constipation who initially presented with fever and abdominal pain. She was initially treated for possible proctitis. She was later found to have a perirectal abscess with a rectocutaneous fistula and eventually underwent I&D of rectocutaneous fistula x2 right and left on with placement of drains. Initial surgical plan to pursue fecal diversion was deferred after a long conversation with family, surgery and preceding hospitalist due to patient's intraoperative risk, age and multiple comorbidities. Patient was started on low dose Seroquel last night for her episodes of sundowning to which she has responded really well. No agitation or combative behavior last night. Nursing reports patient had agitation last evening desaturations were evident and placed on BiPAP. She is also developed mouth sores which do not appear to be thrush but more consistent with a herpetic outbreak. She has crusting lesions on her nose where the NG tube was. Which also may represent herpetic. Patient is very somnolent and nonverbal this morning Reason For Visit: PROCTITIS CONSTIPATION Physical Exam Vital Signs: Temp Pulse Resp BP Pulse Ox 97.9 F 69 16 152/58 H 96 06/24/18 08:05 06/24/18 08:05 06/24/18 08:05 06/24/18 08:05 06/24/18 08:05 Intake & Output 06/23/18 06/24/18 06/25/18 06:59 06:59 06:59 Intake Total 1542 3166 250 Output Total 2525 2100 Balance -983 1066 250 Weight 113.8 kg 113.8 kg General appearance: PRESENT: no acute distress, other - BiPAP in place arousable but nonverbal Head exam: PRESENT: atraumatic, normocephalic Eye exam: PRESENT: conjunctiva pink, EOMI, PERRLA. ABSENT: scleral icterus Mouth exam: PRESENT: other - Ulcerations noted in the posterior pharynx and on the tongue does not appear to be thrush dentures removed palate appears clear Teeth exam: PRESENT: edentulous Throat exam: PRESENT: post pharyngeal erythema Neck exam: ABSENT: carotid bruit, JVD, lymphadenopathy, thyromegaly Respiratory exam: PRESENT: accessory muscle use, clear to auscultation carmela, rales, other - BiPAP. ABSENT: rhonchi, wheezes Cardiovascular exam: PRESENT: RRR. ABSENT: diastolic murmur, rubs, systolic murmur Pulses: PRESENT: +1 pedal pulses bilateral GI/Abdominal exam: PRESENT: normal bowel sounds, soft. ABSENT: distended, guarding, mass, organolmegaly, rebound, tenderness Extremities exam: PRESENT: full ROM. ABSENT: calf tenderness, clubbing, pedal edema Neurological exam: PRESENT: oriented to person, CN II-XII grossly intact. ABSENT: awake - Somnolent but arousable, motor sensory deficit - Neurologic exam impaired by patient's somnolence Skin exam: PRESENT: dry, intact, warm. ABSENT: cyanosis, rash Results Laboratory Results: 06/21/18 06:54 06/22/18 06:35 Impressions: Acute Abdomen Series 06/13/18 00:00 IMPRESSION: Nonspecific abdomen. Possible ileus. Distended urinary bladder. Osseous findings as described. KUB X-Ray 06/13/18 23:52 IMPRESSION: 1. The tip of the feeding tube terminates in the left upper quadrant likely within the proximal stomach. The patient has a known moderate hiatal hernia. 2. Nonspecific nonobstructive bowel gas pattern. 3. Other incidental findings as described above. Abdomen/Pelvis CT 06/14/18 16:17 IMPRESSION: Oral contrast given for CT at 0200 hours 06/14/2018 is now seen in the colon, in a nonobstructive pattern. Guidance Fluoroscopy 06/20/18 00:00 IMPRESSION: SUCCESSFUL PLACEMENT OF A 5 FR DUAL LUMEN 46 CM PICC IN THE RIGHT BASILIC VEIN. Interventional Vascular Procedure 06/20/18 00:00 IMPRESSION: SUCCESSFUL PLACEMENT OF A 5 FR DUAL LUMEN 46 CM PICC IN THE RIGHT BASILIC VEIN. PICC Line Insertion 06/20/18 00:00 IMPRESSION: SUCCESSFUL PLACEMENT OF A 5 FR DUAL LUMEN 46 CM PICC IN THE RIGHT BASILIC VEIN. Chest X-Ray 06/22/18 00:00 IMPRESSION: Left basilar consolidation worrisome for pneumonia. Question trace left pleural effusion Assessment & Plan - Diagnosis (1) Perirectal abscess Is this a current diagnosis for this admission?: Yes Plan: As per surgery patient to receive 15 days of vancomycin cultures positive for MRSA (2) Pneumonia Qualifiers: Pneumonia type: due to unspecified organism Laterality: left Lung location: lower lobe of lung Qualified Code(s): J18.1 - Lobar pneumonia, unspecified organism Is this a current diagnosis for this admission?: Yes Plan: Continue IV vancomycin and Zosyn check ABG due to patient's somnolence to rule out CO2 retention (3) Pharyngitis Is this a current diagnosis for this admission?: Yes Plan: Patient has multiple areas that appear to be more consistent with herpes simplex rather than thrush. Will obtain both culture and viral cultures of the pharynx initiate patient on IV acyclovir and provide Magic mouthwash (4) Dementia Is this a current diagnosis for this admission?: Yes Plan: Patient somnolent today had desaturations last night and was initiated on BiPAP. We will decrease Seroquel to 25 mg at night ABG has been ordered to rule out hypercapnia (5) Atrial fibrillation Is this a current diagnosis for this admission?: Yes Plan: Rate controlled ventricular paced not on anticoagulation due to history of bleeding (6) Hyponatremia Is this a current diagnosis for this admission?: Yes Plan: Improving last checked 135 will repeat CMP in a.m. (7) Rectocutaneous fistula Is this a current diagnosis for this admission?: Yes Plan: As per surgery (8) Hypertension Qualifiers: Hypertension type: essential hypertension Qualified Code(s): I10 - Essential (primary) hypertension Is this a current diagnosis for this admission?: No Plan: Mild systolic hypertension continue to monitor no change in medications at this time. (9) Hypothyroidism Qualifiers: Hypothyroidism type: acquired Qualified Code(s): E03.9 - Hypothyroidism, unspecified Is this a current diagnosis for this admission?: No Plan: TSH 1.12 no change - Time Time Spent with patient: 25-34 minutes Anticipated discharge: SNF - When respiratory status improves.
[2018-06-24] MEDS: NON-FORMULARY BULK MEDICATION PO SCH ×4 (11:07→23:31)
[2018-06-24 11:26] LABS: ARTERIAL BLOOD BASE EXCESS 2.3 mmol/L; ARTERIAL BLOOD HCO3 25.8 mmol/L (20-24); ARTERIAL BLOOD O2 SATURATION 96.9 % (94-98); ARTERIAL BLOOD PCO2 36.6 mmHg (35-45); ARTERIAL BLOOD PH 7.47 (7.35-7.45); ARTERIAL BLOOD PO2 84.5 mmHg (80-100); ARTERIAL BLOOD TOTAL CO2 26.9 mmol/L (21-25)
[2018-06-24 11:28] LABS: ABSOLUTE EOSINOPHILS # (AUTO) 0.1 10^3/uL (0.0-0.6); ABSOLUTE LYMPHOCYTES (AUTO) 1.6 10^3/uL (0.5-4.7); ABSOLUTE MONOCYTES (AUTO) 0.4 10^3/uL (0.1-1.4); ABSOLUTE NEUT (AUTO) 4.2 10^3/uL (1.7-8.2); ARTERIAL BLOOD FIO2 ROOM AIR; BASOPHILS % (AUTO) 0.5 % (0-2); EOSINOPHILS % (AUTO) 1.2 % (0-6); HEMATOCRIT 29.5 % (36.0-47.0); HEMOGLOBIN 9.8 g/dL (12.0-15.5); LYMPHOCYTES % (AUTO) 25.7 % (13-45); MEAN CORPUSCULAR HEMOGLOBIN 29.7 pg (27.0-33.4); MEAN CORPUSCULAR HGB CONC 33.3 g/dL (32.0-36.0); MEAN CORPUSCULAR VOLUME 89 fl (80-97); MONOCYTES % (AUTO) 5.9 % (3-13); PLATELET COUNT 224 10^3/uL (150-450); RED BLOOD COUNT 3.32 10^6/uL (3.72-5.28); RED CELL DISTRIBUTION WIDTH 16.3 % (11.5-14.0); SEGMENTED NEUTROPHILS % (AUTO) 66.7 % (42-78); TOTAL CELLS COUNTED % (AUTO) 100 %; WHITE BLOOD COUNT 6.2 10^3/uL (4.0-10.5)
[2018-06-24] MEDS: ACYCLOVIR SODIUM 700 MG in NORMAL SALINE 100 ML IV SCH ×2 (13:46→21:34)
[2018-06-24] MEDS ORDERED: ACYCLOVIR SODIUM INJ/PF 500 MG/10 ML SDV IV SCH (14:00)
--- NOTE | 2018-06-24 16:13 | Progress Note ---
Provider Note Provider Note: Son arrived to the floor and informed nursing that his mother is not a DNR and requested DNR be changed to full code. He is power of prosecuting attorney and will honor his request patient is now a full code
[2018-06-24] MEDS: QUETIAPINE FUMARATE 100 MG TABLET PO SCH (23:30)
[2018-06-25] MEDS: IPRATROPIUM/ALBUTEROL 0.5-2.5 MG/3 ML AMPUL NEB SCH ×3 (00:06→16:11)
[2018-06-25] MEDS: PIPERACILLIN SODIUM/TAZOBACTAM 3.375 GM in NORMAL SALINE 100 ML IV SCH ×4 (05:00→23:24)
[2018-06-25] MEDS: NYSTATIN 500000 UNIT/5 ML UDCUP PO SCH ×3 (05:00→23:22)
[2018-06-25] MEDS: OXYCODONE-ACETAMINOPHEN 5-325 MG TABLET PO PRN ×2 (05:00→23:22)
[2018-06-25] MEDS: LEVOTHYROXINE SODIUM 0.1 MG TABLET PO SCH (05:00)
[2018-06-25] MEDS: LANSOPRAZOLE 30 MG TAB.RAP.DR PO SCH (05:01)
[2018-06-25] MEDS: ZINC OXIDE 20% OINTMENT 28.35 GM TP SCH ×6 (05:02→23:29)
[2018-06-25] MEDS: ACYCLOVIR SODIUM 700 MG in NORMAL SALINE 100 ML IV SCH ×3 (05:40→23:24)
[2018-06-25 05:51] LABS: ALANINE AMINOTRANSFERASE 23 U/L (9-52); ALBUMIN 2.1 g/dL (3.5-5.0); ALKALINE PHOSPHATASE 65 U/L (38-126); ANION GAP 7 (5-19); ASPARTATE AMINO TRANSFERASE 18 U/L (14-36); BILIRUBIN,DIRECT 0.1 mg/dL (0.0-0.4); BILIRUBIN,TOTAL 0.2 mg/dL (0.2-1.3); BLOOD UREA NITROGEN 7 mg/dL (7-20); CALCIUM 7.5 mg/dL (8.4-10.2); CARBON DIOXIDE 32 mmol/L (22-30); CHLORIDE 103 mmol/L (98-107); GLUCOSE 77 mg/dL (75-110); PHOSPHORUS 3.1 mg/dL (2.5-4.5); SODIUM 141.8 mmol/L (137-145); TOTAL PROTEIN 4.4 g/dL (6.3-8.2)
[2018-06-25 05:56] LABS: POTASSIUM 2.9 mmol/L (3.6-5.0)
[2018-06-25] MEDS: NON-FORMULARY BULK MEDICATION PO SCH ×5 (06:21→23:33)
[2018-06-25] MEDS: POTASSIUM CHLORIDE 20 MEQ/50 ML RTU IV SCH ×2 (06:28→10:29)
[2018-06-25] MEDS: VANCOMYCIN HCL 1,250 MG in DEXTROSE 5%-WATER 250 ML IV SCH ×2 (06:56→20:06)
[2018-06-25] MEDS: METOPROLOL TARTRATE 50 MG TABLET PO SCH ×2 (10:27→23:23)
[2018-06-25] MEDS: HEPARIN SOD (PORCINE) 5,000 UNIT/ML 1 ML SYRINGE SUBCUT SCH ×2 (10:27→23:35)
[2018-06-25] MEDS: MEGESTROL ACETATE 20 MG TABLET PO SCH (10:27)
[2018-06-25] MEDS: POTASSIUM CHLORIDE 10 MEQ CAPSULE.ER PO ONE ×2 (10:28→10:56)
[2018-06-25] MEDS: NORMAL SALINE 10 ML SDV (SCHEDULED) IV SCH ×2 (10:29→23:28)
[2018-06-25] MEDS: NYSTATIN CREAM 15 GM TP SCH ×2 (10:30→18:47)
--- NOTE | 2018-06-25 12:20 | PDOC PROGRESS REPORT ---
Subjective Progress Note for:: 06/25/18 Subjective:: Assumed care today. Ms. Rollins is an 88 year old female assisted living resident , with a past medical history of dementia, atrial fibrillation, hypertension, obesity, diabetes and chronic constipation who initially presented with fever and abdominal pain. She was initially treated for possible proctitis. She was later found to have a perirectal abscess with a rectocutaneous fistula and eventually underwent I&D of rectocutaneous fistula x2 right and left on with placement of drains. Initial surgical plan to pursue fecal diversion was deferred after a long conversation with family, surgery and preceding hospitalist due to patient's intraoperative risk, age and multiple comorbidities. Patient was also started on low dose Seroquel for her episodes of owning to which she has responded really well. No agitation or combative behavior last night since then. Patient has been awaiting for rehab placement. However, on 06/23/18 she had minimally productive cough and was noted to have rales on the left base. Chest x -ray revealed a new left lower lobe pneumonia. No acute event overnight. She denies of acute SOB upon encounter. Denies chest pain. She only has minimal cough with no significant sputum production. No fever or chills. Upon re-examination of surgical wounds this morning, perirectal drains did not have any significant drainage. There is only minimal erythema around the surgical wounds and they appear to continue to resolve and there is no tenderness on palpation of the areas. Discussed with patient's son in length this morning including patient's status, plan of care and code status. Clarified the issue of code status change yesterday. He says he wants her to be DNR but does not want the DNR wristband just for preference as they don't want her mom seeing that "label" all the time. Patient is deemed stable for discharge to rehab/SNF and will be transferred on Wednesday pending bed availability at receiving facility. Reason For Visit: PROCTITIS CONSTIPATION Physical Exam Vital Signs: Temp Pulse Resp BP Pulse Ox 97.9 F 75 22 H 137/73 H 91 L 06/25/18 08:05 06/25/18 08:21 06/25/18 08:21 06/25/18 08:05 06/25/18 08:21 Intake & Output 06/24/18 06/25/18 06/26/18 06:59 06:59 06:59 Intake Total 3166 3137 514 Output Total 2100 2655 Balance 1066 482 514 Weight 250 lb 14.177 oz 254 lb 6.615 oz General appearance: PRESENT: no acute distress, well-developed, well-nourished Head exam: PRESENT: atraumatic, normocephalic Eye exam: PRESENT: conjunctiva pink, EOMI, PERRLA. ABSENT: scleral icterus Ear exam: PRESENT: normal external ear exam Mouth exam: PRESENT: moist, tongue midline Neck exam: ABSENT: carotid bruit, JVD, lymphadenopathy, thyromegaly Respiratory exam: PRESENT: clear to auscultation carmela, rales - minimal rales on the left base. ABSENT: rhonchi, wheezes Cardiovascular exam: PRESENT: RRR. ABSENT: diastolic murmur, rubs, systolic murmur Pulses: PRESENT: normal dorsalis pedis pul GI/Abdominal exam: PRESENT: normal bowel sounds, soft. ABSENT: distended, guarding, mass, organolmegaly, rebound, tenderness Rectal exam: PRESENT: deferred, other - upon re-examination of surgical wounds this morning, perirectal drains did not have any significant drainage. There is only minimal erythema around the surgical wounds and they appear to continue to resolve and there is no tenderness on palpation of the areas. Neurological exam: PRESENT: alert, awake, oriented to person, oriented to place Results Laboratory Results: 06/24/18 11:05 06/25/18 04:54 06/25/18 04:54 Sodium 141.8 Potassium 2.9 L* Chloride 103 Carbon Dioxide 32 H Anion Gap 7 BUN 7 Creatinine 0.55 Est GFR ( Amer) > 60 Est GFR (Non-Af Amer) > 60 Glucose 77 Calcium 7.5 L Phosphorus 3.1 Magnesium 2.0 Total Bilirubin 0.2 AST 18 ALT 23 Alkaline Phosphatase 65 Total Protein 4.4 L Albumin 2.1 L Impressions: Acute Abdomen Series 06/13/18 00:00 IMPRESSION: Nonspecific abdomen. Possible ileus. Distended urinary bladder. Osseous findings as described. KUB X-Ray 06/13/18 23:52 IMPRESSION: 1. The tip of the feeding tube terminates in the left upper quadrant likely within the proximal stomach. The patient has a known moderate hiatal hernia. 2. Nonspecific nonobstructive bowel gas pattern. 3. Other incidental findings as described above. Abdomen/Pelvis CT 06/14/18 16:17 IMPRESSION: Oral contrast given for CT at 0200 hours 06/14/2018 is now seen in the colon, in a nonobstructive pattern. Guidance Fluoroscopy 06/20/18 00:00 IMPRESSION: SUCCESSFUL PLACEMENT OF A 5 FR DUAL LUMEN 46 CM PICC IN THE RIGHT BASILIC VEIN. Interventional Vascular Procedure 06/20/18 00:00 IMPRESSION: SUCCESSFUL PLACEMENT OF A 5 FR DUAL LUMEN 46 CM PICC IN THE RIGHT BASILIC VEIN. PICC Line Insertion 06/20/18 00:00 IMPRESSION: SUCCESSFUL PLACEMENT OF A 5 FR DUAL LUMEN 46 CM PICC IN THE RIGHT BASILIC VEIN. Chest X-Ray 06/22/18 00:00 IMPRESSION: Left basilar consolidation worrisome for pneumonia. Question trace left pleural effusion Assessment & Plan - Diagnosis (1) Perirectal abscess Is this a current diagnosis for this admission?: Yes Plan: Improving. Status post I&D of rectocutaneous fistula x2 right and left on with placement of drains. Culture form surgical specimen grew MRSA and E. faecalis both sensitive to vancomycin. Plan will be to discharge to rehab/SNF with IV vancomycin oral Flagyl for a total of 15 days on Wednesday when bed is available at rehab. Continue IV vancomycin and Zosyn for now. Zosyn was restarted for her new left sided pneumonia/ (2) Atrial fibrillation Is this a current diagnosis for this admission?: Yes Plan: Paroxysmal. Currently rate-controlled. Continue lopressor. Not on chronic anticoagulation per family's choice due to previous bleeding complication from anticoagulant. (3) Hypothyroidism Qualifiers: Hypothyroidism type: acquired Qualified Code(s): E03.9 - Hypothyroidism, unspecified Is this a current diagnosis for this admission?: No Plan: Stable. Continue synthroid. (4) Hyponatremia Is this a current diagnosis for this admission?: Yes Plan: Resolved. (5) Is this a current diagnosis for this admission?: Yes Plan: Buspar discontinued as family reports patient did not tolerate this well before (became lethargic). She has responded well to Seroquel. (6) Pneumonia Qualifiers: Pneumonia type: due to unspecified organism Laterality: left Lung location: lower lobe of lung Qualified Code(s): J18.1 - Lobar pneumonia, unspecified organism Is this a current diagnosis for this admission?: Yes Plan: Patient developed new left lower lobe pneumonia possibly HAP. She is already on vancomycin. Zosyn was restarted. Sputum culture ordered. (7) Hypokalemia Is this a current diagnosis for this admission?: Yes Plan: Continue potassium replacement. Repeat BMP this afternoon. - Time Time Spent with patient: 25-34 minutes
--- NOTE | 2018-06-25 12:21 | Progress Note ---
Provider Note Provider Note: Discussed with patient's son in length this morning including patient's status, lab results, plan of care and code status. Clarified the issue of code status change yesterday. He says he wants her to be DNR but does not want the DNR wristband just for personal preference as they don't want her mom seeing that "label" all the time. Patient will be switched back to DNR/DNI status.
[2018-06-25] MEDS ORDERED: POTASSIUM CHLORIDE 20 MEQ/15 ML UDCUP PO ONE (13:00)
[2018-06-25] MEDS: NORMAL SALINE 1000 ML 1,000 ML IV PRN (13:11)
[2018-06-25 15:56] LABS: ANION GAP 9 (5-19); BLOOD UREA NITROGEN 8 mg/dL (7-20); CALCIUM 7.8 mg/dL (8.4-10.2); CARBON DIOXIDE 29 mmol/L (22-30); CHLORIDE 105 mmol/L (98-107); GLUCOSE 130 mg/dL (75-110); POTASSIUM 3.3 mmol/L (3.6-5.0); SODIUM 143.3 mmol/L (137-145)
[2018-06-25] MEDS: QUETIAPINE FUMARATE 100 MG TABLET PO SCH (23:27)
[2018-06-26] MEDS: IPRATROPIUM/ALBUTEROL 0.5-2.5 MG/3 ML AMPUL NEB SCH ×3 (00:34→15:40)
[2018-06-26] MEDS: ZINC OXIDE 20% OINTMENT 28.35 GM TP SCH ×6 (04:20→21:12)
[2018-06-26] MEDS: ACYCLOVIR SODIUM 700 MG in NORMAL SALINE 100 ML IV SCH ×3 (06:04→21:04)
[2018-06-26] MEDS: VANCOMYCIN HCL 1,250 MG in DEXTROSE 5%-WATER 250 ML IV SCH ×2 (06:04→19:19)
[2018-06-26] MEDS: PIPERACILLIN SODIUM/TAZOBACTAM 3.375 GM in NORMAL SALINE 100 ML IV SCH ×3 (06:05→18:31)
[2018-06-26] MEDS: NYSTATIN 500000 UNIT/5 ML UDCUP PO SCH ×3 (06:05→21:03)
[2018-06-26] MEDS: OXYCODONE-ACETAMINOPHEN 5-325 MG TABLET PO PRN ×3 (06:05→21:02)
[2018-06-26] MEDS: LANSOPRAZOLE 30 MG TAB.RAP.DR PO SCH (06:06)
[2018-06-26] MEDS: LEVOTHYROXINE SODIUM 0.1 MG TABLET PO SCH (06:06)
[2018-06-26] MEDS: NON-FORMULARY BULK MEDICATION PO SCH ×4 (06:52→18:32)
--- NOTE | 2018-06-26 08:35 | RADIOLOGY REPORT (SQ) ---
EXAM DESCRIPTION: CHEST SINGLE VIEW COMPLETED DATE/TIME: 06/26/2018 8:04 am REASON FOR STUDY: re eval LL PNA COMPARISON: 06/22/2018 EXAM PARAMETERS: NUMBER OF VIEWS: One view. TECHNIQUE: Single frontal radiographic view of the chest acquired. RADIATION DOSE: NA LIMITATIONS: None. FINDINGS: LUNGS AND PLEURA: Mild near complete resolution of the left basilar opacity. Persistent s mall left pleural effusion. Right lung is grossly clear. No pneumothorax. MEDIASTINUM AND HILAR STRUCTURES: No masses. Contour normal. HEART AND VASCULAR STRUCTURES: Cardiac silhouette is unchanged in size. Central pulmonary vasculatur e is normal. BONES: No acute findings. HARDWARE: Unchanged positioning of right-sided PICC line and left-sided cardiac pacing device. Incom pletely visualized total reverse right shoulder arthroplasty. OTHER: No other significant finding. IMPRESSION: 1. Near complete resolution of the left basilar opacity. 2. Persistent small left pleural effusion. TECHNICAL DOCUMENTATION: JOB ID: [id number] [employer]- All Rights Reserved Reading location - IP/workstation name: [email or web address]
--- NOTE | 2018-06-26 10:08 | PDOC PROGRESS REPORT ---
Subjective Progress Note for:: 06/26/18 Subjective:: Assumed care today. Ms. Rollins is an 88 year old female assisted living resident , with a past medical history of dementia, atrial fibrillation, hypertension, obesity, diabetes and chronic constipation who initially presented with fever and abdominal pain. She was initially treated for possible proctitis. She was later found to have a perirectal abscess with a rectocutaneous fistula and eventually underwent I&D of rectocutaneous fistula x2 right and left on with placement of drains. Initial surgical plan to pursue fecal diversion was deferred after a long conversation with family, surgery and preceding hospitalist due to patient's intraoperative risk, age and multiple comorbidities. Patient was also started on low dose Seroquel for her episodes of sundowning to which she has responded really well. No agitation or combative behavior last night since then. Patient has been awaiting for rehab placement. However, on 06/23/18 she had minimally productive cough and was noted to have rales on the left base. Chest x -ray revealed a new left lower lobe pneumonia. No acute event overnight. She denies of acute SOB upon encounter. Denies chest pain. No cough or SOB. No fever or chills. Upon re-examination of surgical wounds this morning, perirectal drains was not noted to have any active purulent drainage. There is only minimal erythema around the surgical wounds and they appear to continue to resolve and there is no tenderness on palpation of the areas. Discussed with patient's son in length on 06/25/18 including patient's status, plan of care and code status. Clarified the issue of code status change on 06/24 made by JOSEPH. He says he wants her to be DNR but does not want the DNR wristband just for preference as they don't want her mom seeing that "label" all the time. Patient has been deemed stable for discharge to rehab/SNF and will be transferred as soon as bed is available at receiving facility. Reason For Visit: PROCTITIS CONSTIPATION Physical Exam Vital Signs: Temp Pulse Resp BP Pulse Ox 98.3 F 76 16 149/71 H 95 06/26/18 07:36 06/26/18 08:06 06/26/18 08:06 06/26/18 07:36 06/26/18 08:06 Intake & Output 06/25/18 06/26/1806/27/18 06:59 06:59 06:59 Intake Total 3137 2933 464 Output Total 1075 3665 Balance 482 128 464 Weight 254 lb 6.615 oz 259 lb 14.8 oz General appearance: PRESENT: no acute distress, well-developed, well-nourished Head exam: PRESENT: atraumatic, normocephalic Eye exam: PRESENT: conjunctiva pink, EOMI, PERRLA. ABSENT: scleral icterus Ear exam: PRESENT: normal external ear exam Mouth exam: PRESENT: moist, tongue midline Neck exam: ABSENT: carotid bruit, JVD, lymphadenopathy, thyromegaly Respiratory exam: PRESENT: clear to auscultation carmela. ABSENT: rales, rhonchi, wheezes Cardiovascular exam: PRESENT: RRR. ABSENT: diastolic murmur, rubs, systolic murmur Pulses: PRESENT: normal dorsalis pedis pul GI/Abdominal exam: PRESENT: normal bowel sounds, soft. ABSENT: distended, guarding, mass, organolmegaly, rebound, tenderness Rectal exam: PRESENT: deferred, other - perirectal drains was not noted to have any active purulent drainage. There is only minimal erythema around the surgical wounds and they appear to continue to resolve and there is no tenderness on palpation of the areas. Neurological exam: PRESENT: alert, awake, oriented to person, oriented to place Results Laboratory Results: 06/24/18 11:05 06/25/18 15:14 06/25/18 15:14 Sodium 143.3 Potassium 3.3 L Chloride 105 Carbon Dioxide 29 Anion Gap 9 BUN 8 Creatinine 0.45 L Est GFR ( Amer) > 60 Est GFR (Non-Af Amer) > 60 Glucose 130 H Calcium 7.8 L Magnesium 1.9 06/24/18 12:50 Throat Throat Culture - Final NORMAL MARK Impressions: Acute Abdomen Series 06/13/18 00:00 IMPRESSION: Nonspecific abdomen. Possible ileus. Distended urinary bladder. Osseous findings as described. KUB X-Ray 06/13/18 23:52 IMPRESSION: 1. The tip of the feeding tube terminates in the left upper quadrant likely within the proximal stomach. The patient has a known moderate hiatal hernia. 2. Nonspecific nonobstructive bowel gas pattern. 3. Other incidental findings as described above. Abdomen/Pelvis CT 06/14/18 16:17 IMPRESSION: Oral contrast given for CT at 0200 hours 06/14/2018 is now seen in the colon, in a nonobstructive pattern. Guidance Fluoroscopy 06/20/18 00:00 IMPRESSION: SUCCESSFUL PLACEMENT OF A 5 FR DUAL LUMEN 46 CM PICC IN THE RIGHT BASILIC VEIN. Interventional Vascular Procedure 06/20/18 00:00 IMPRESSION: SUCCESSFUL PLACEMENT OF A 5 FR DUAL LUMEN 46 CM PICC IN THE RIGHT BASILIC VEIN. PICC Line Insertion 06/20/18 00:00 IMPRESSION: SUCCESSFUL PLACEMENT OF A 5 FR DUAL LUMEN 46 CM PICC IN THE RIGHT BASILIC VEIN. Chest X-Ray 06/26/18 07:00 IMPRESSION: 1. Near complete resolution of the left basilar opacity. 2. Persistent small left pleural effusion. Assessment & Plan - Diagnosis (1) Perirectal abscess Is this a current diagnosis for this admission?: Yes Plan: Improving. Status post I&D of rectocutaneous fistula x2 right and left on with placement of drains. Culture form surgical specimen grew MRSA and E. faecalis both sensitive to vancomycin. Plan will be to discharge to rehab/SNF with IV vancomycin oral Flagyl for a total of 15 days of therapy once bed is available at rehab. Continue IV vancomycin and Zosyn for now. Zosyn was restarted for her new left sided pneumonia. (2) Pneumonia Qualifiers: Pneumonia type: due to unspecified organism Laterality: left Lung location: lower lobe of lung Qualified Code(s): J18.1 - Lobar pneumonia, unspecified organism Is this a current diagnosis for this admission?: Yes Plan: Resolving. Patient developed new left lower lobe pneumonia possibly HAP. She is already on vancomycin. Zosyn was restarted. Repeat chest x-ray today shows almost complete resolution of left lower lobe infiltrate. (3) Atrial fibrillation Is this a current diagnosis for this admission?: Yes Plan: Paroxysmal. Currently rate-controlled. Continue lopressor. Not on chronic anticoagulation per family's choice due to previous bleeding complication from anticoagulant. (4) Hypothyroidism Qualifiers: Hypothyroidism type: acquired Qualified Code(s): E03.9 - Hypothyroidism, unspecified Is this a current diagnosis for this admission?: No Plan: Stable. Continue synthroid. (5) Hyponatremia Is this a current diagnosis for this admission?: Yes Plan: Resolved. (6) Sundowning Is this a current diagnosis for this admission?: Yes Plan: Buspar discontinued as family reports patient did not tolerate this well before (became lethargic). She has responded well to Seroquel. (7) Hypokalemia Is this a current diagnosis for this admission?: Yes Plan: Continue potassium replacement. Repeat BMP this afternoon. - Time Time Spent with patient: 25-34 minutes
[2018-06-26] MEDS ORDERED: POTASSIUM CHLORIDE 20 MEQ/15 ML UDCUP PO ONE (10:30)
[2018-06-26] MEDS: POTASSIUM CHLORIDE 10 MEQ CAPSULE.ER PO SCH ×2 (11:01→18:31)
[2018-06-26] MEDS: METOPROLOL TARTRATE 50 MG TABLET PO SCH ×2 (11:02→21:03)
[2018-06-26] MEDS: NORMAL SALINE 10 ML SDV (SCHEDULED) IV SCH ×2 (11:03→21:20)
[2018-06-26] MEDS: HEPARIN SOD (PORCINE) 5,000 UNIT/ML 1 ML SYRINGE SUBCUT SCH ×2 (11:04→21:12)
[2018-06-26] MEDS: MEGESTROL ACETATE 20 MG TABLET PO SCH (11:05)
[2018-06-26] MEDS: NYSTATIN CREAM 15 GM TP SCH ×2 (11:05→18:32)
[2018-06-26] MEDS: NORMAL SALINE 1000 ML 1,000 ML IV PRN (16:32)
[2018-06-26 17:38] LABS: ABSOLUTE EOSINOPHILS # (AUTO) 0.1 10^3/uL (0.0-0.6); ABSOLUTE LYMPHOCYTES (AUTO) 1.5 10^3/uL (0.5-4.7); ABSOLUTE MONOCYTES (AUTO) 0.4 10^3/uL (0.1-1.4); ABSOLUTE NEUT (AUTO) 3.6 10^3/uL (1.7-8.2); BASOPHILS % (AUTO) 0.9 % (0-2); HEMATOCRIT 27.9 % (36.0-47.0); HEMOGLOBIN 9.2 g/dL (12.0-15.5); LYMPHOCYTES % (AUTO) 26.4 % (13-45); MEAN CORPUSCULAR HEMOGLOBIN 29.1 pg (27.0-33.4); MEAN CORPUSCULAR VOLUME 88 fl (80-97); MONOCYTES % (AUTO) 7.7 % (3-13); PLATELET COUNT 222 10^3/uL (150-450); RED BLOOD COUNT 3.17 10^6/uL (3.72-5.28); RED CELL DISTRIBUTION WIDTH 16.5 % (11.5-14.0); TOTAL CELLS COUNTED % (AUTO) 100 %; WHITE BLOOD COUNT 5.7 10^3/uL (4.0-10.5)
[2018-06-26 17:51] LABS: ANION GAP 11 (5-19); BLOOD UREA NITROGEN 8 mg/dL (7-20); CARBON DIOXIDE 28 mmol/L (22-30); CHLORIDE 101 mmol/L (98-107); GLUCOSE 99 mg/dL (75-110); POTASSIUM 3.4 mmol/L (3.6-5.0); SODIUM 140.1 mmol/L (137-145)
[2018-06-26 18:06] LABS: CALCIUM 6.8 mg/dL (8.4-10.2)
[2018-06-26] MEDS ORDERED: CALCIUM GLUCONATE 1000 MG/10 ML INJ IV ONE (18:09)
[2018-06-26] MEDS ORDERED: HALOPERIDOL LACTATE INJ 5 MG/1 ML VIAL IV ONE (18:50)
[2018-06-26] MEDS: QUETIAPINE FUMARATE 100 MG TABLET PO SCH (21:03)
[2018-06-27] MEDS: IPRATROPIUM/ALBUTEROL 0.5-2.5 MG/3 ML AMPUL NEB SCH ×2 (00:06→08:13)
[2018-06-27] MEDS: PIPERACILLIN SODIUM/TAZOBACTAM 3.375 GM in NORMAL SALINE 100 ML IV SCH ×3 (00:43→12:59)
[2018-06-27] MEDS: OXYCODONE-ACETAMINOPHEN 5-325 MG TABLET PO PRN ×2 (03:42→10:28)
[2018-06-27] MEDS: NON-FORMULARY BULK MEDICATION PO SCH ×3 (03:44→10:30)
[2018-06-27] MEDS: ZINC OXIDE 20% OINTMENT 28.35 GM TP SCH ×4 (03:54→14:24)
[2018-06-27] MEDS: LANSOPRAZOLE 30 MG TAB.RAP.DR PO SCH (06:34)
[2018-06-27] MEDS: ACYCLOVIR SODIUM 700 MG in NORMAL SALINE 100 ML IV SCH ×2 (06:34→14:33)
[2018-06-27] MEDS: LEVOTHYROXINE SODIUM 0.1 MG TABLET PO SCH (06:34)
[2018-06-27] MEDS: NYSTATIN 500000 UNIT/5 ML UDCUP PO SCH ×2 (06:34→14:26)
[2018-06-27] MEDS: VANCOMYCIN HCL 1,250 MG in DEXTROSE 5%-WATER 250 ML IV SCH (06:40)
[2018-06-27 08:22] LABS: ALANINE AMINOTRANSFERASE 21 U/L (9-52); ALBUMIN 2.4 g/dL (3.5-5.0); ALKALINE PHOSPHATASE 72 U/L (38-126); ANION GAP 8 (5-19); ASPARTATE AMINO TRANSFERASE 22 U/L (14-36); BILIRUBIN,DIRECT 0.2 mg/dL (0.0-0.4); BILIRUBIN,TOTAL 0.5 mg/dL (0.2-1.3); BLOOD UREA NITROGEN 8 mg/dL (7-20); CARBON DIOXIDE 32 mmol/L (22-30); CHLORIDE 101 mmol/L (98-107); GLUCOSE 97 mg/dL (75-110); POTASSIUM 3.5 mmol/L (3.6-5.0)
[2018-06-27 08:24] LABS: VANCOMYCIN,TROUGH 17.6 ug/mL (5.0-20.0)
--- NOTE | 2018-06-27 10:16 | PDOC TRANSFER SUMMARY ---
General Admission Date/PCP: 06/14/18 00:17 [facility] Resuscitation Status: Do Not Resuscitate - Transfer Diagnosis (1) Perirectal abscess Is this a current diagnosis for this admission?: Yes (2) Pneumonia Is this a current diagnosis for this admission?: Yes (3) Atrial fibrillation Is this a current diagnosis for this admission?: Yes (4) Hypothyroidism Is this a current diagnosis for this admission?: No (5) Hyponatremia Is this a current diagnosis for this admission?: Yes (6) Sundowning Is this a current diagnosis for this admission?: Yes (7) Hypokalemia Is this a current diagnosis for this admission?: Yes (8) HCAP (healthcare-associated pneumonia) Is this a current diagnosis for this admission?: Yes - Transfer Medications Home Medications: Amlodipine Besylate [Norvasc 5 mg Tablet] 5 mg PO DAILY 06/14/18 Levothyroxine Sodium [Synthroid] 100 mcg PO Q6AM 06/14/18 Menthol/Camphor [Biofreeze with Ilex Gel] 1 applic TP TID 06/14/18 Metoprolol Tartrate [Lopressor 50 mg Tablet] 50 mg PO Q12 06/14/18 Nystatin [Mycostatin Ointment 15 gm] 1 applic TP BID 06/14/18 Ondansetron [Zofran Odt] 4 mg PO Q8HP PRN 06/14/18 Pantoprazole Sodium [Protonix] 40 mg PO DAILY 06/14/18 Polyethylene Glycol 3350 [Miralax Powder 17 gm/Packet] 1 packet PO DAILYP PRN Transfer Medications: Current Medications Acetaminophen (Tylenol 325 Mg Tablet) 325 mg PO Q6HP PRN PRN Reason: FOR PAIN Stop: 07/21/18 12:15 Albuterol/Ipratropium (Duoneb 3 Ml Ampul) 3 ml NEB [id number] PRN PRN Reason: SHORTNESS OF BREATH Stop: 07/14/18 00:42 Last Admin: 06/23/18 23:35 Dose: 3 ml Albuterol/Ipratropium (Duoneb 3 Ml Ampul) 3 ml NEB RTQ8 [facility] Stop: 07/24/18 07:59 Last Admin: 06/27/18 08:13 Dose: 3 ml Dextrose (Dextrose Inj 50% Syringe (25 Gm/50 Ml)) 12.5 gm IV PRN PRN; Protocol PRN Reason: FOR BG 50-69 IN ALERT PATIENT Stop: 07/14/18 00:42 Dextrose (Dextrose Inj 50% Syringe (25 Gm/50 Ml)) 25 gm IV PRN PRN; Protocol PRN Reason: See Label Comments Stop: 07/14/18 00:42 Glucagon (Glucagen Inj 1 Mg Vial) 1 mg SUBCUT PRN PRN; Protocol PRN Reason: Evaluate for BG < 70 Stop: 07/14/18 00:42 Glucose (Glutose 40% Gel 15 Gm Tube) 15 gm PO PRN PRN; Protocol PRN Reason: For BG 50-69 in Alert Patient Stop: 07/14/18 00:42 Glucose (Glutose 40% Gel 15 Gm Tube) 30 gm PO PRN PRN; Protocol PRN Reason: FOR BG < 50 IN ALERT PATIENT Stop: 07/14/18 00:42 Heparin Sodium (Porcine) (Heparin Flush 10 Unit/Ml 5 Ml Disp.Syrg) 30 unit IV Q12 [facility] Stop: 07/20/18 21:59 Last Admin: 06/26/18 21:04 Dose: 30 unit Heparin Sodium (Porcine) (Heparin Flush 10 Unit/Ml 5 Ml Disp.Syrg) 30 unit IV .AFTER EACH USE PRN Stop: 07/20/18 14:23 Heparin Sodium (Porcine) (Heparin Inj 5,000 Units/Ml 1 Ml Syringe) 5,000 unit SUBCUT Q12 [facility] Stop: 07/22/18 21:59 Last Admin: 06/26/18 21:12 Dose: 5,000 unit Sodium Chloride (Nacl 0.9% 1000 Ml Iv Soln) 1,000 mls @ 75 mls/hr IV CONTINUOUS PRN PRN Reason: THIS MED IS NOT "PRN" Stop: 07/16/18 08:32 Last Admin: 06/26/18 16:32 Dose: 75 mls/hr Vancomycin HCl 1,250 mg/ (Dextrose) 250 mls @ 166.667 mls/hr IV Q12@0700,1900 [facility] Stop: 06/27/18 18:59 Last Admin: 06/27/18 06:40 Dose: 166.67 mls/hr, 166.67 mls/hr Piperacillin Sod/Tazobactam (Sod 3.375 gm/ Sodium Chloride) 100 mls @ 200 mls/ hr IV Q6 [facility] Stop: 06/30/18 00:00 Last Admin: 06/27/18 06:34 Dose: 200 mls/hr Acyclovir Sodium 700 mg/ (Sodium Chloride) 114 mls @ 114 mls/hr IV Q8 [facility] Stop: 07/01/18 13:59 Last Admin: 06/27/18 06:34 Dose: 114 mls/hr, 114 mls/hr Influenza Virus Vaccine Quadrival (Fluarix Adlt Quad Vac 0.5 Ml Syr) 0.5 ml IM .DISCHARGE PRN PRN Reason: THIS MED IS NOT "PRN" Stop: 07/14/18 05:34 Lansoprazole (Prevacid 30 Mg Odt Tablet) 30 mg PO Q6AM [facility] Stop: 07/19/18 05:59 Last Admin: 06/27/18 06:34 Dose: 30 mg Levothyroxine Sodium (Synthroid 0.1 Mg Tablet) 0.1 mg PO Q6AM [facility] Stop: 07/15/18 09:59 Last Admin: 06/27/18 06:34 Dose: 0.1 mg Megestrol Acetate (Megace 20 Mg Tablet) 20 mg PO DAILY [facility] Stop: 07/19/18 09:59 Last Admin: 06/26/18 11:05 Dose: 20 mg Metoprolol Tartrate (Lopressor 50 Mg Tablet) 50 mg PO Q12 [facility] Stop: 07/15/18 10:59 Last Admin: 06/26/18 21:03 Dose: 50 mg Multi-Ingredient Ointment (Zinc Oxide 20% Ointment 28.35 Gm) 1 applic TP Q4 [facility] Stop: 07/21/18 13:59 Last Admin: 06/27/18 03:54 Dose: Not Given Non-Formulary Medication ((Nf) Non-Formulary Bulk Medication) 1 each PO 5XDA [facility] Stop: 07/01/18 10:59 Last Admin: 06/27/18 06:35 Dose: 1 each Nystatin (Mycostatin Cream 15 Gm) 1 applic TP BID [facility] Stop: 06/28/18 17:59 Last Admin: 06/26/18 18:32 Dose: 1 applic Nystatin (Mycostatin 500,000 Unit/5 Ml Susp Udcup) 500,000 unit PO Q8 [facility] Stop: 06/28/18 13:59 Last Admin: 06/27/18 06:34 Dose: 500,000 unit Ondansetron HCl (Zofran Odt 4 Mg Tablet) 4 mg PO Q8HP PRN PRN Reason: FOR NAUSEA/VOMITING Stop: 07/19/18 08:16 Oxycodone/Acetaminophen (Percocet 5-325 Mg Tablet) 1 tab PO Q4HP PRN PRN Reason: FOR PAIN Stop: 06/28/18 17:57 Last Admin: 06/27/18 03:42 Dose: 1 tab Patient Own Medication (Menthol/Camphor [Biofreeze With Ilex Gel]) 1 applic TP .TID [facility] Stop: 07/19/18 09:59 Potassium Chloride (Klor-Con 10 Meq Capsule Er) 20 meq PO BID [facility] Stop: 07/26/18 09:59 Last Admin: 06/26/18 18:31 Dose: 20 meq Quetiapine Fumarate (Seroquel 100 Mg Tablet) 100 mg PO QHS [facility] Stop: 07/22/18 21:59 Last Admin: 06/26/18 21:03 Dose: 100 mg Sodium Chloride (Nacl 0.9% Inj/Pf 10 Ml Sdv) 10 ml IV Q12 [facility] Stop: 07/20/18 21:59 Last Admin: 06/26/18 21:20 Dose: 10 ml Sodium Chloride (Nacl 0.9% Inj/Pf 10 Ml Sdv) 10 ml IV .AFTER EACH USE PRN Stop: 07/20/18 14:23 - Allergies Allergies/Adverse Reactions: Cephalosporins Allergy (Severe, Verified 05/17/18 18:40) Anaphylaxis lisinopril [From Zestril] Allergy (Severe, Verified 05/17/18 18:40) Hives bacitracin [From Neosporin] Allergy (Intermediate, Verified 05/17/18 18:40) Blisters gramicidin D [From Neosporin] Allergy (Intermediate, Verified 05/17/18 18:40) Blisters latex [Latex] Allergy (Intermediate, Verified 05/17/18 18:40) LATEX neomycin sulfate [From Neosporin] Allergy (Intermediate, Verified 05/17/18 18:40 ) Blisters polymyxin B [From Neosporin] Allergy (Intermediate, Verified 05/17/18 18:40) Blisters sulindac [Sulindac] Allergy (Unknown, Verified 05/17/18 18:40) flector patch Allergy (Intermediate, Uncoded 05/17/18 18:40) Blisters soaps Allergy (Intermediate, Uncoded 05/17/18 18:40) tape Allergy (Intermediate, Uncoded 05/17/18 18:40) Blisters Hospital Course Hospital Course: Ms. Rollins is an 88 year old female, an assisted living resident, with a past medical history of dementia, paroxysmal rate-controlled atrial fibrillation not on anticoagulation per family due to bleeding complications in the past , hypertension, obesity, diet-controlled diabetes and chronic constipation who initially presented with fever and abdominal pain. She was initially treated for possible proctitis. 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 Initial surgical plan to pursue fecal diversion was deferred after a long conversation with family, surgery and hospitalist team due to patient's intraoperative risk, age and multiple comorbidities. Patient was also started on low dose Seroquel for her episodes of sundowning to which she has responded really well. Her buspar was discontinued as family said that this made her very lethargic in the past. She did also develop minimally productive cough and was then found to have a left lower lobe pneumonia. She was continued on vancomycin and zosyn. She clinically improved and a repeat chest x-ray showed almost complete resolution of left sided pneumonia. Drainage from the perirectal drains did continue to significantly improve with resolution of active drainage. Two days prior to transfer, there was only minimal drainage. Upon day of transfer, there was no drainage noted from the [place] drains and there was resolution of erythema and tenderness on the area. She also developed oral thrush and a few vesicular rashes on the nares and lips and these responded well to nystatin and acyclovir. Patient will need meticulous perineal care at rehab ensuring prompt cleaning from bowel movement and urination to ensure optimal wound healing. Cultures obtained during drainage of rectal abscess grew MRSA and E. faecalis sensitive to vancomycin. Blood cultures were negative. She has received 9 days of vancomycin and Zosyn. She will need 6 more days of vancomycin as discussed with surgery. She will also be prescribed 3 more days of Levaquin for her HCAP. She will need a follow-up appointment with the wound/surgery clinic for reassessment of surgical wounds and possible removal of drains in 3-5 days. Discussed with patient's son (JOSEPH) in length on 06/25/18 including patient's status, plan of care and code status. He says he wants her to be DNR but does not want the DNR wristband just for personal preference as they don't want her mom seeing that "label" all the time. Patient has been deemed stable for discharge since on 06/25/18 to rehab and will be transferred to [place]. Physical Exam Vital Signs: Temp Pulse Resp BP Pulse Ox 97.9 F 70 16 158/67 H 95 06/27/18 07:25 06/27/18 08:13 06/27/18 08:13 06/27/18 07:25 06/27/18 08:13 Intake & Output 06/26/18 06/27/18 06/28/18 06:59 06:59 06:59 Intake Total 3933 1797 Output Total 2275 2275 Balance 1658 -478 Weight 259 lb 14.8 oz 263 lb 3.711 oz General appearance: PRESENT: no acute distress, well-developed, well-nourished Head exam: PRESENT: atraumatic, normocephalic Eye exam: PRESENT: conjunctiva pink, EOMI, PERRLA. ABSENT: scleral icterus Ear exam: PRESENT: normal external ear exam Mouth exam: PRESENT: moist, tongue midline Neck exam: ABSENT: carotid bruit, JVD, lymphadenopathy, thyromegaly Respiratory exam: PRESENT: clear to auscultation carmela. ABSENT: rales, rhonchi, wheezes Cardiovascular exam: PRESENT: RRR. ABSENT: diastolic murmur, rubs, systolic murmur Pulses: PRESENT: normal dorsalis pedis pul GI/Abdominal exam: PRESENT: normal bowel sounds, soft. ABSENT: distended, guarding, mass, organolmegaly, rebound, tenderness Rectal exam: PRESENT: other - No drainage noted from the [place] drains and there is resolution of erythema and tenderness on the areas. Neurological exam: PRESENT: alert, awake, oriented to person, oriented to place Results Laboratory Results: 06/26/18 17:15 06/27/18 07:35 06/26/18 06/26/18 06/27/18 17:15 17:15 07:35 WBC 5.7 RBC 3.17 L Hgb 9.2 L Hct 27.9 L MCV 88 MCH 29.1 MCHC 33.0 RDW 16.5 H Plt Count 222 Seg Neutrophils % 64.0 Lymphocytes % 26.4 Monocytes % 7.7 Eosinophils % 1.0 Basophils % 0.9 Absolute Neutrophils 3.6 Absolute Lymphocytes 1.5 Absolute Monocytes 0.4 Absolute Eosinophils 0.1 Absolute Basophils 0.0 Sodium 140.1 141.0 Potassium 3.4 L 3.5 L Chloride 101 101 Carbon Dioxide 28 32 H Anion Gap 11 8 BUN 8 8 Creatinine 0.41 L 0.49 L Est GFR ( Amer) > 60 > 60 Est GFR (Non-Af Amer) > 60 > 60 Glucose 99 97 Calcium 6.8 L* 8.0 L Total Bilirubin 0.5 AST 22 ALT 21 Alkaline Phosphatase 72 Total Protein 5.0 L Albumin 2.4 L 06/24/18 12:50 Throat Throat Culture - Final NORMAL MARK Impressions: Acute Abdomen Series 06/13/18 00:00 IMPRESSION: Nonspecific abdomen. Possible ileus. Distended urinary bladder. Osseous findings as described. KUB X-Ray 06/13/18 23:52 IMPRESSION: 1. The tip of the feeding tube terminates in the left upper quadrant likely within the proximal stomach. The patient has a known moderate hiatal hernia. 2. Nonspecific nonobstructive bowel gas pattern. 3. Other incidental findings as described above. Abdomen/Pelvis CT 06/14/18 16:17 IMPRESSION: Oral contrast given for CT at 0200 hours 06/14/2018 is now seen in the colon, in a nonobstructive pattern. Guidance Fluoroscopy 06/20/18 00:00 IMPRESSION: SUCCESSFUL PLACEMENT OF A 5 FR DUAL LUMEN 46 CM PICC IN THE RIGHT BASILIC VEIN. Interventional Vascular Procedure 06/20/18 00:00 IMPRESSION: SUCCESSFUL PLACEMENT OF A 5 FR DUAL LUMEN 46 CM PICC IN THE RIGHT BASILIC VEIN. PICC Line Insertion 06/20/18 00:00 IMPRESSION: SUCCESSFUL PLACEMENT OF A 5 FR DUAL LUMEN 46 CM PICC IN THE RIGHT BASILIC VEIN. Chest X-Ray 06/26/18 07:00 IMPRESSION: 1. Near complete resolution of the left basilar opacity. 2. Persistent small left pleural effusion.
[2018-06-27] MEDS: POTASSIUM CHLORIDE 10 MEQ CAPSULE.ER PO SCH (10:24)
[2018-06-27] MEDS: METOPROLOL TARTRATE 50 MG TABLET PO SCH (10:28)
[2018-06-27] MEDS: HEPARIN SOD (PORCINE) 5,000 UNIT/ML 1 ML SYRINGE SUBCUT SCH (10:28)
[2018-06-27] MEDS: MEGESTROL ACETATE 20 MG TABLET PO SCH (10:29)
[2018-06-27] MEDS: NORMAL SALINE 10 ML SDV (SCHEDULED) IV SCH (10:29)
[2018-06-27] MEDS: NYSTATIN CREAM 15 GM TP SCH (10:30)
[2018-06-27 12:46] VITALS: BP 155/73
[2018-06-27] MEDS ORDERED: VANCOMYCIN HCL 1,250 MG in DEXTROSE 5%-WATER 250 ML IV SCH (19:00)
== END 2018-06-27 15:21 | DRG 344 ==
LOC: ER 18:21 → EH 06-14 00:17 → 4S 06-14 03:40 → 3S 06-14 04:31 → 3W 06-18 04:53
PROVIDERS: ADMIT Internal Medicine; ATTEND Internal Medicine
PROC: 0DBP8ZX Excision of Rectum, Via Natural or Artificial Opening Endoscopic, Diagnostic (ICD-10-PCS; 2018-06-14)
PROC: 0D9Q80Z Drainage of Anus with Drainage Device, Via Natural or Artificial Opening Endoscopic (ICD-10-PCS; 2018-06-18)
PROC: 0D9P8ZZ Drainage of Rectum, Via Natural or Artificial Opening Endoscopic (ICD-10-PCS; principal; 2018-06-18 16:30)
PROC: 02HV33Z Insertion of Infusion Device into Superior Vena Cava, Percutaneous Approach (ICD-10-PCS; 2018-06-20)
PROC: B548ZZA Ultrasonography of Superior Vena Cava, Guidance (ICD-10-PCS; 2018-06-20)
PROC: B518ZZA Fluoroscopy of Superior Vena Cava, Guidance (ICD-10-PCS; 2018-06-20)
DX: K61.2 Anorectal abscess (principal); J18.9 Pneumonia, unspecified organism; E87.1 Hypo-osmolality and hyponatremia; C91.11 Chronic lymphocytic leukemia of B-cell type in remission; F05 Delirium due to known physiological condition; B37.0 Candidal stomatitis; K60.5 Anorectal fistula; K59.09 Other constipation; E87.6 Hypokalemia; K62.89 Other specified diseases of anus and rectum; I48.0 Paroxysmal atrial fibrillation; I10 Essential (primary) hypertension; E11.9 Type 2 diabetes mellitus without complications; E66.9 Obesity, unspecified; E78.5 Hyperlipidemia, unspecified; E03.9 Hypothyroidism, unspecified; F03.90 Unspecified dementia, unspecified severity, without behavioral disturbance, psychotic disturbance, mood disturbance, and anxiety; K64.4 Residual hemorrhoidal skin tags; B95.62 Methicillin resistant Staphylococcus aureus infection as the cause of diseases classified elsewhere; B95.2 Enterococcus as the cause of diseases classified elsewhere; Z66 Do not resuscitate; D72.829 Elevated white blood cell count, unspecified; R19.7 Diarrhea, unspecified; Z96.653 Presence of artificial knee joint, bilateral; Z90.49 Acquired absence of other specified parts of digestive tract; Z88.1 Allergy status to other antibiotic agents; Z88.8 Allergy status to other drugs, medicaments and biological substances; Z79.899 Other long term (current) drug therapy; Z91.040 Latex allergy status; Z68.38 Body mass index [BMI] 38.0-38.9, adult; Z82.49 Family history of ischemic heart disease and other diseases of the circulatory system; Z91.048 Other nonmedicinal substance allergy status
CPT/HCPCS: 00902; 36415; 36569; 36600; 51702; 71045; 71046; 74018; 74022; 74176; 74177; 76937; 77001; 80048; 80053; 80202; 81001; 82272; 82565; 82570; 82803; 82962; 83605; 83690; 83735; 84100; 84300; 84439; 84443; 84481; 85025; 85610; 85652; 85730; 86140; 87040; 87045; 87070; 87075; 87077; 87086; 87186; 87205; 87252; 87493; 87804; 88304; 89055; 93005; 93010; 94640; 94660; 94799; 96360; 96365; 96366; 96375; 99284; 99285; C1769; G8978-GP; G8979-GP; G8987-GO; G8988-GO; G8989-GO; J0133; J0330; J0610; J1642; J1644; J1885; J1956; J2060; J2250; J2270; J2405; J2543; J2704; J3010; J3370; J3480; J3490; J7030; J7060; J7620